=== PATIENT | male | born 1945 | race Caucasian/White ===

== ENCOUNTER 2018-07-29 01:05 | Outpatient (CLI) | payer MEDICARE, OTHER, SELFPAY ==
--- NOTE | 2018-07-29 09:00 | DI.US_ITS ---
SYMPTOM/DIAGNOSIS: SCROTAL MASS, N50.9 SCROTAL ULTRASOUND: Scrotal ultrasound was performed according to the usual protocol. The testes are homogeneous in echotexture with normal symmetrical vascular flow bilaterally. The epididymi are unremarkable in appearance. There is a right sided hydrocele, volume 83 cc's. 4 mm. right spermatocele or cyst noted. No hernia is seen. CONCLUSION: Right hydrocele. Otherwise unremarkable examination.
== END 2018-07-29 01:25 ==
PROVIDERS: PCP Nurse Practitioner Family; Visit Provider Family Medicine
DX: N50.9 Disorder of male genital organs, unspecified (principal); N43.3 Hydrocele, unspecified
CPT/HCPCS: 76870

== ENCOUNTER → 2018-08-05 10:40 | Outpatient (BNVA) | payer MEDICARE, OTHER, SELFPAY | PROVIDERS: PCP Nurse Practitioner Family; Visit Provider Urology | DX: N43.3 Hydrocele, unspecified (principal); I10 Essential (primary) hypertension | CPT/HCPCS: 99213 ==

== ENCOUNTER 2018-10-06 10:29 | Outpatient (CLI) | payer MEDICARE, OTHER, SELFPAY ==
--- NOTE | 2018-10-06 10:30 | DI.US_ITS ---
SYMPTOMS/DIAGNOSIS: LT SCROTAL SWELLING, RAPID INCREASE IN SIZE, N50.89 TESTICULAR ULTRASOUND: Comparison 07/29/18. The right testicle measures 4.2 x 3.2 x 2.0 cm. The testicle is homogeneous with normal blood flow. No evidence of torsion or mass is seen. The right epididymis is unremarkable. The left testicle measures 4.7 x 2.9 x 2.5 cm. It is homogeneous with normal blood flow. No intratesticular mass or torsion is present. There is a large hydrocele present with estimated volume of 150 cc's. The epididymis is unremarkable. IMPRESSION: Increase in size of large left hydrocele.
== END 2018-10-06 10:49 ==
PROVIDERS: PCP Nurse Practitioner Family; Visit Provider Nurse Practitioner Gerontology
DX: N50.89 Other specified disorders of the male genital organs (principal); N50.82 Scrotal pain; N43.2 Other hydrocele; I10 Essential (primary) hypertension
CPT/HCPCS: 99213; 76870

== ENCOUNTER → 2018-12-13 13:41 | Outpatient (BNVA) | payer MEDICARE, OTHER, SELFPAY | PROVIDERS: PCP Nurse Practitioner Family; Visit Provider Urology | DX: N43.3 Hydrocele, unspecified (principal); I10 Essential (primary) hypertension | CPT/HCPCS: 55000; 99213 ==

== ENCOUNTER 2018-12-30 18:17 | Emergency (ER) | payer MEDICARE, OTHER, SELFPAY ==
[2018-12-30] VITALS (47 sets, daily range): BP systolic 98–132; BP diastolic 53–85; PULSE 62–163; RESP 13–30; TEMP 36.8–37; O2SAT 90–96
[2018-12-30] MEDS: Normal Saline 1,000 ML 1000 ML IV (18:35)
[2018-12-30 18:44] LABS: Abs Immature Grans 0.01 k/cumm (0.0-0.09); Absolute Basophil Count 0.02 k/cumm (0.0-0.2); Absolute Eosinophil Count 0.13 k/cumm (0.0-0.7); Absolute Lymphocyte Count 1.71 k/cumm (1.2-3.4); Absolute Monocyte Count 0.74 k/cumm (0.11-0.7); Basophils % 0.3; HCT 42.1 % (40.0-50.0); HGB 13.9 g/dL (13.5-17.5); Immature Grans % 0.2; Lymphocytes % 25.9; Mean Corpuscular Hemoglobin 31.1 pg (27.0-33.0); Mean Corpuscular Volume 94.2 fL (80-95); Mean Platelet Volume 10.7 fL (8.0-11.0); Monocytes % 11.2; Neutrophils % 60.4; Platelet Count 166 x1000/uL (130-400); RBC 4.47 m/cumm (4.50-6.00); RBC Distribution Width 14.4 % (11.8-14.1); White Blood Cell Count 6.61 k/cumm (4.4-10.8)
[2018-12-30] MEDS: Metoprolol 5 MG/5 ML VIAL IVP (18:44)
--- NOTE | 2018-12-30 18:54 | W.ED.GENAD ---
Discharge Plan Disposition Patient Disposition: HOME Condition: Good Discharge Details Chief Complaint: Palpitatns Clinical Impression: Atrial fibrillation with RVR Primary Care Provider: Henri Gan ED Provider: Dave Lacey Home Meds and New Rx's Prescriptions: No Action atenolol 100 MG tablet 100 mg PO DAILY RF: 0 amlodipine 5 MG tablet 5 mg PO DAILY RF: 0 acetaminophen [Tylenol] 325 MG tablet 650 mg PO PRN RF: 0 naproxen 250 MG tablet 500 mg PO BID PRNRF: 0 levothyroxine [Synthroid] 50 MCG tablet 25 mcg PO DAILY RF: 0 cholecalciferol (vitamin D3) [Vitamin D3] 1,000 UNIT capsule 1 tab PO DAILY RF: 0 rabeprazole [Aciphex] 20 MG tablet,delayed release (DR/EC) 20 mg PO DAILY RF: 0 aspirin [Aspir-81] 81 MG tablet,delayed release (DR/EC) 81 mg PO DAILY RF: 0 metoprolol succinate 100 mg Tablet Extended Release 24 Hr 100 mg PO DAILY RF: 0 Eliquis 5 mg Tablet 5 mg PO BID RF: 0 Discharge Instructions Instructions: Atrial Fibrillation (ED) Additional Instructions: Please take your home metoprolol, Eliquis, and amlodipine as directed. Please follow-up immediately with your primary care provider. Please have a low threshold for return to the ED if you have any return of your symptoms. If you notice any worsening of your symptoms, or any new symptoms such as vomiting, diarrhea, fever, chills, shortness of breath, chest pain, numbness, weakness, or fainting , please return immediately to the emergency department for reevaluation. Please follow up with your primary care provider as soon as possible for reassessment and reevaluation. As always, it was a pleasure participating in your medical care today. Referrals: Henri Gan [Primary Care Provider] - Medical Decision Making This is a 73-year-old male with a past medical history of recently diagnosed atrial fibrillation, thyroid disease, who is currently on Eliquis, metoprolol and amlodipine. He presents today for fatigue for the last 3 days, followed by his recommendation of his PCP to come into the ER for further evaluation. Patient denies any concerning red flags of chest pain, shortness of breath, PE risk factors, tearing sensation in his chest or other abnormalities. Physical exam is benign, the patient demonstrates normal blood pressure, heart rate is in the 150s-160s, and EKG demonstrates atrial fibrillation with a rapid ventricular response. Minimal ST flattening, but no evidence of STEMI. From the onset the patient is very hesitant about staying overnight would like to go home. We initially started 5 but hematoma metoprolol, however he had no significant response to this. Heart rate did slow slightly, but rate remained over 100. We did add 15 mg of Cardizem and we will assess after this. If his rate can be controlled with this, he can be restarted on his beta-venkata and amlodipine for home use. Patient is very clear that he would like to go home. We will continue to monitor and reassess. 8:07 PM The patient was given a total of 20 of Cardizem, his blood pressures remained stable. Heart rate is now in the 80s-90s. He is feeling very well. The patient's laboratory workup is benign including his potassium, magnesium, and sodium. Troponin is normal. TSH is low, reflex free T4 slightly elevated. I did review his records from his PCP and they recently decreased his levothyroxine within the past 48 hours. I expect his free T4 to come down with time. If the patient's heart rate remained stable, we will not force the patient to stay overnight, however I have made my clear recommendations for admission. Patient will require restarting his metoprolol 100 mg daily, and continuing his amlodipine. 8:46 PM Patient's heart rate continues to remain stable. Repeat EKG shows no significant ST abnormalities, normal rate. Patient is were still requesting to be discharged home. I discussed the risks and benefits of admission versus discharge understood understands that patient will be given 25 mg of metoprolol, he will then continue his home medications in the morning. We discussed the importance of close follow-up with his primary care provider as well as red flags for which to return. I have extensively reviewed the treatment plan and discharge instructions with the patient. I have addressed all patient concerns at this time. The patient was made aware of what symptoms to monitor for that would warrant a return to the emergency department. Discussed the plan with the patient, they demonstrate verbal understanding and agreement with our assessment and plan at this time. EKG 18: 23 Rate 159, QTc 449, atrial fibrillation with a rapid ventricular response. Q waves present in lead III. Minimal flattening of T waves in V4 V5. No reciprocal ST elevations. No evidence of STEMI. EKG 20: 18 Rate 87, QTc 455, QRS 96, atrial fibrillation, no significant ST elevations or depressions, inverted T wave in lead III, Q waves in lead III. Q wave is present in prior EKG. COMPARISON: No relevant prior studies available. FINDINGS: Lungs: Unremarkable. No consolidation. Pleural space: Unremarkable. No pleural effusion. No pneumothorax. Heart/Mediastinum: Unremarkable. No cardiomegaly. Bones/joints: Unremarkable. IMPRESSION: No acute findings. Dictated and Authenticated by: Beryl De Guzman MD. HPI General Date/Time Provider Initiated Documentation: 12/30/18 18:23. HPI Narrative: 73-year-old male with a past medical history of recently diagnosed A. fib 2 days ago, recently started Eliquis, thyroid disease, who takes metoprolol 100 mg daily, and amlodipine 5 mg daily. He presents today for evaluations of fatigue after his primary care provider recommended that he come in for further evaluation. Patient states that he has noticed fatigue over the last 2-3 days, he has not taken his metoprolol over the last 2 days either, as he read on the pamphlet that if he stops taking it it could cause him to and he did not want to be on a medication like that permanently. The patient denies any symptoms of chest pain, palpitations, shortness of breath, fever, chills, headache, numbness, tingling, weakness, tearing sensation in the chest, tearing sensation in the abdomen, or other abnormalities. He is otherwise been taking his Eliquis and other medications as directed. He denies any other modifying factors. Denies PE risk factors such as recent long car rides, immobilization, recent surgery, prior history of DVT or PE, family history of PE or DVT, morbid obesity, exogenous estrogen and smoking, hemoptysis, history of cancer. Related Data Home Medications Medication Instructions Recorded Confirmed amlodipine 5 mg PO DAILY tab-cap 08/02/15 12/30/18 atenolol 100 mg PO DAILY tab-cap 08/02/15 10/06/18 cholecalciferol (vitamin D3) 1 tab PO DAILY 04/11/16 12/30/18 [Vitamin D3] levothyroxine [Synthroid] 25 mcg PO DAILY 04/11/16 12/30/18 aspirin [Aspir 81] 81 mg PO DAILY 08/31/16 12/30/18 rabeprazole [Aciphex] 20 mg PO DAILY 12/29/16 12/30/18 acetaminophen [Tylenol] 650 mg PO PRN tab-cap 01/31/18 12/30/18 naproxen 500 mg PO BID PRN tab-cap 01/31/18 12/30/18 apixaban [Eliquis] 5 mg PO BID 12/30/18 12/30/18 metoprolol succinate 100 mg PO DAILY 12/30/18 12/30/18 Allergies Allergy/AdvReac Type Severity Reaction Status Date / Time oxycodone Allergy Itching Unverified 12/30/18 18:53 propoxyphene Allergy Itching Unverified 12/30/18 18:53 [From [facility]] General Stated Complaint: Palpitatns PEDRO: 2 Review of Systems Review of Systems All systems reviewed & are unremarkable except as noted in HPI and below PFSH Medical History GERD (gastroesophageal reflux disease) Hyperlipidemia Hypertension Spinal arthritis Vitamin D deficiency Surgical History Arthroplasty of knee Release for de Quervain's tenosynovitis of hand Rotator Cuff Repair Social History Smoking/Tobacco Use Status: Never Drug use: Never Substance use type: does not use Do you feel safe at home: Yes Do you feel safe in your relationship?: Yes Exam Narrative Exam Narrative: 1.Const: Well-nourished, Well-developed, appearing stated age 2.Eyes: PERRL, no conjunctival injection, and symmetrical lids. 3.ENT: Atraumatic external nose and ears. Moist MM. Neck: Symmetric, trachea midline, No thyromegaly. 4.CVS: +S1/S2, No murmurs or gallops. Peripheral pulses 2+ and equal in all extremities. Brisk capillary refill in all extremities. 5.RESP: Unlabored respiratory effort. Clear to auscultation bilaterally. No wheezes rales or rhonchi 6.GI: Soft, Nontender/Nondistended, No hepatosplenomegaly. No guarding or rebound. 7.MSK: Normocephalic/Atraumatic, Extremities w/o deformity or ttp No cyanosis or clubbing, Normal movement of all extremities 8.Skin: Warm, Dry. No rashes or lesions. 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 Sensation grossly intact, no focal neurologic deficits. 10.Psych: (AAO) x3. Appropriate mood and affect Course Vital Signs Temperature 37.0 C 12/30/18 18:34 Pulse 163 H 12/30/18 18:34 Respiratory Rate 22 12/30/18 18:34 Pulse Oximetry 96 12/30/18 18:34 Temperature 37.0 C 12/30/18 18:34 Temperature Source Skin 12/30/18 18:34 Pulse 147 H 12/30/18 18:44 Respiratory Rate 22 12/30/18 18:34 Respiratory Effort 12/30/18 18:47 Blood Pressure 118/70 12/30/18 18:44 Pulse Oximetry 96 12/30/18 18:34 Oxygen Delivery Method Room Air 12/30/18 18:34 Oxygen Flow Rate 0 12/30/18 18:34 Pain Level 0 12/30/18 18:34 Lab/Test Results Lab/Test Results: Laboratory Tests Range/Units 12/30/18 18:30 WBC (4.4-10.8) k/cumm 6.61 RBC (4.50-6.00) m/cumm 4.47 L Hgb (13.5-17.5) g/dL 13.9 Hct (40.0-50.0) % 42.1 MCV (80-95) fL 94.2 MCH (27.0-33.0) pg 31.1 MCHC (32.0-36.0) g/dL 33.0 RDW (11.8-14.1) % 14.4 H Plt Count (130-400) x1000/uL 166 MPV (8.0-11.0) fL 10.7 Immature Gran % 0.2 Neutrophils % 60.4 Lymphocytes % 25.9 Monocytes % 11.2 Eosinophils % 2.0 Basophils % 0.3 Absolute Neutrophils (1.2-6.7) k/cumm 4.00 Absolute Lymphocytes (1.2-3.4) k/cumm 1.71 Absolute Monocytes (0.11-0.7) k/cumm 0.74 H Absolute Eosinophils (0.0-0.7) k/cumm 0.13 Absolute Basophils (0.0-0.2) k/cumm 0.02
[2018-12-30 19:02] LABS: ALT 55 U/L (12-78); AST 20 U/L (15-37); Albumin 3.8 g/dL (3.4-5.0); Alkaline Phosphatase 105 U/L (46-116); Anion Gap 9.2 mmol/L (3-11); BUN 25 mg/dL (7-18); Bilirubin, Total 0.7 mg/dL (0.2-1.0); CO2 26.8 mmol/L (21.0-32.0); CREATININE 1.18 mg/dL (0.70-1.30); Chloride 105 mmol/L (98-107); Glucose 125 mg/dL (70-100); Potassium 3.9 mmol/L (3.5-5.1); Sodium 141 mmol/L (136-145); TSH (W/Ref FT4) 0.01 uIU/mL (0.358-3.74); Total Protein 7.3 g/dL (6.4-8.2)
--- NOTE | 2018-12-30 19:02 | DI.RAD_ITS ---
SYMPTOM/DIAGNOSIS: A FIB WITH RVR PA AND LATERAL CHEST: The heart is not enlarged. The lungs appear grossly clear. Slight blunting of the costophrenic angles is noted bilaterally which is a nonspecific finding. This may represent scarring, the possibility of tiny pleural effusions not excluded. Lungs are clear. CONCLUSION: Mild bilateral nonspecific pleural blunting. No evidence of acute process.
[2018-12-30 19:04] LABS: Troponin I < 0.02 ng/mL (0.00-0.06)
[2018-12-30] MEDS: dilTIAZem 25 MG/5 ML VIAL 15 MG IVP ×2 (19:18→19:48)
[2018-12-30 19:20] LABS: FREE T4 1.73 ng/dL (0.76-1.46); INR 1.1 (0.9-1.1); PTT Activated 26.5 sec (21.0-31.4); Prothrombin Time 10.8 sec (9.3-11.0)
--- NOTE | 2018-12-30 19:27 | DI.VRAD_ITS ---
EXAM: XR Chest, 2 Views EXAM DATE/TIME: 12/30/2018 6:39 PM CLINICAL HISTORY: 73 years old, male; Signs and symptoms; Other: Afib with rvr TECHNIQUE: Imaging protocol: XR of the chest, 2 views. COMPARISON: No relevant prior studies available. FINDINGS: Lungs: Unremarkable. No consolidation. Pleural space: Unremarkable. No pleural effusion. No pneumothorax. Heart/Mediastinum: Unremarkable. No cardiomegaly. Bones/joints: Unremarkable. IMPRESSION: No acute findings. Dictated and Authenticated by: Beryl De Guzman MD. Ordering:GALILEO Acosta MD
[2018-12-30] MEDS: Metoprolol 25 MG TAB PO (20:32)
== END 2018-12-30 21:00 | disposition home or self-care (01) ==
PROVIDERS: Emergency Provider Student in an Organized Health Care Education/Training Program; PCP Family Medicine
DX: I48.0 Paroxysmal atrial fibrillation (principal); I10 Essential (primary) hypertension; Z79.01 Long term (current) use of anticoagulants
CPT/HCPCS: 36415; 80053; 93005; 96361; 96365; 96375; 99285; 71046; 83735; 84439; 84443; 84484; 85025; 85610; 85730; 93010

== ENCOUNTER → 2019-01-09 09:10 | Outpatient (BNVA) | payer MEDICARE, OTHER, SELFPAY | PROVIDERS: PCP Family Medicine; Visit Provider Urology | DX: N43.3 Hydrocele, unspecified (principal); I10 Essential (primary) hypertension | CPT/HCPCS: 99213 ==

== ENCOUNTER → 2019-04-14 15:14 | Outpatient (BNVA) | payer MEDICARE, OTHER, SELFPAY | PROVIDERS: PCP Family Medicine; Visit Provider Urology | DX: N43.3 Hydrocele, unspecified (principal); I48.91 Unspecified atrial fibrillation; Z79.01 Long term (current) use of anticoagulants; I10 Essential (primary) hypertension | CPT/HCPCS: 55000; 99212 ==

== ENCOUNTER 2019-04-23 18:08 | Emergency (ER) | payer MEDICARE, OTHER, SELFPAY ==
[2019-04-23] VITALS (94 sets, daily range): BP systolic 114–143; BP diastolic 63–95; PULSE 58–96; RESP 11–46; TEMP 36.3–36.6; O2SAT 81–97
--- NOTE | 2019-04-23 19:15 | W.ED.GENAD ---
Discharge Plan Disposition Patient Disposition: HOME Condition: Fair Discharge Details Chief Complaint: Urinary Clinical Impression: Hydrocele Primary Care Provider: Althea Hamilton ED Provider: Carline Lamas Home Meds and New Rx's Prescriptions: Continued atenolol 100 MG tablet 100 mg PO DAILY RF: 0 amlodipine 5 MG tablet 5 mg PO DAILY RF: 0 acetaminophen [Tylenol] 325 MG tablet 650 mg PO PRN RF: 0 levothyroxine [Synthroid] 50 MCG tablet 25 mcg PO DAILY RF: 0 cholecalciferol (vitamin D3) [Vitamin D3] 1,000 UNIT capsule 1 tab PO DAILY RF: 0 rabeprazole [Aciphex] 20 MG tablet,delayed release (DR/EC) 20 mg PO DAILY RF: 0 metoprolol succinate 100 mg Tablet Extended Release 24 Hr 25 mg PO DAILY RF: 0 Eliquis 5 mg Tablet 5 mg PO BID RF: 0 Discharge Instructions Instructions: Oxycodone, Rapid Release (By mouth), Hydrocele (ED) Additional Instructions: Your labs did not show signs of infection. You do not have an abscess or signs of infection on your CT scan. It does show the recurrence of your hydrocele. Please try to elevate scrotum scrotum as much as possible. You may apply cool compress to this. 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 Please also contact Dr. Petersen tomorrow morning to schedule appointment as soon as possible for reevaluation of your recurrence of hydrocele If you develop fevers/chills, increased pain, discharge, increased swelling or other new/worsening symptoms please seek care urgently once again. You may use Oxycodone 5mg tablet one tab every 6 hours as needed for pain. Use only as directed, keep in a safe place, away from children. Referrals: Mukund Petersen MD [ [facility] STAFF PHYSICIAN] - Althea Hamilton [Primary Care Provider] - Discharge Data Discharge Date/Time-TO BE ENTERED AT DEPARTURE: 04/24/19 00:40 Medical Decision Making Patient is 73-year-old male presents today with chief complaint of left-sided scrotal pain. Patient has a history of a hydrocele on 04/14/2019 had this drained by Dr. Petersen without complication. At that time, Dr. Petersen reported that he removed 100 cc of yellow-tinged fluid. Patient reports this is the second time he has had this drained. States that since the drainage, he has noted low level of discomfort that has steadily been increasing with increasing swelling once again. It is not yet back to the original size. However, at noon today he reports that it felt like somebody kicked me in the groin. States that the pain had been steadily increasing and that now he is unable to tolerate at home. Denies any fevers or chills. States the pain can radiate up into the left lower quadrant. Denies any hematuria, difficulty with urination, hesitancy, dysuria. No change in bowel habits. Patient also has a history of atrial fibrillation and is scheduled to have a conversion tomorrow. He is currently anticoagulated. Has rigth sided inguinal hernia without acute pain or changge. On exam, the patient appears nontoxic. He does have notable swelling to the left side of the scrotum. It is slightly red but does not feel warm to the touch. I do not appreciate any drainage. Does not look particularly infected. Will consult with Dr. Petersen. Given the lenght of time that pain has been increasing and that patient has fairly minimal pain with plapation at this time, torsion is very unlikely. Feel this is most concerning for possible infection or reaccumulation of hydrocele. Unable to reach Dr. 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 Concerned for possible abscess, will obtain CT scan. Dr. Lacey evaluated the patient as well. He agrees that infection is unlikely, evaluation is more consistent with reformation of the hydrocele. Labs obtained, patient has no leukocytosis. BUN elevated at 27, creatinine 1.47, patient is receiving IV hydration. UA concerning for moderate amount of blood, this is not atypical for the patient. Nitrite negative, leukocyte esterase negative. Plan to move forward with CT for evaluaton of possible abscess. CT reviewed by radiologist: IMPRESSION: 1. Large left and small right hydroceles. 2. Small right varicocele. 3. No evidence of abscess or hematoma. 4. No evidence of residual or recurrent inguinal hernia. 5. Small amount of ascites in the pelvis. 6. Small fatty umbilical hernia. 7. Diverticulosis without evidence of diverticulitis. 8. Large prostate. Discussed these findings wtih the patient. He expresses his want for definitive treatment with surgical excision. At this point, I do not see any emergent need for intervention. We discussed scrotal elevation. He is requesting pain medication. Oxycodone has worked well for him historically, it is listed as an allergy but chikacindyn states that he typically does not tolerate percocet but does well with oxycodone. Advised icing the area. Advised close f/u with Dr. Petersen. He has an appointment for cardioversion tomorrow but advised he f/u with Dr. Petersen within the next 3 days, he will call tomorrow to schedule appointment. Do not see evidence of infection at this point, will hold off on abx. Encouraged hydration. He was given strict return precautions. All questions and concerns were addressed, he isin agreement with this plan. Patient discharged home with oxycodone to use tonight. He was given dosing instructions, will keep in a safe place. HPI General Mode of arrival: ambulatory. Date/Time Provider Initiated Documentation: 04/23/19 19:13. Limitations to Documentation: no limitations. Information obtained by: patient, family and RN notes reviewed. History of Present Illness 73 year old M presents to the emergency department with the chief complaint of left sided scrotal swelling, described as severe, with intensity rated at 8. Quality is described as aching, and is localized to the genitals. Patient reports no radiation. Patient started experiencing this week(s) (Had drained 10 days ago, progressively increasing since that time) and it has been constant. No relieving factors improve symptom(s), Movement worsens symptoms . Patient notes no other symptoms.; denies chest pain, cough, diaphoresis, fever/chills, headaches, loss of appetite, nausea/vomiting, rash, shortness of breath and weakness. Patient did receive the following treatments prior to arrival, none Related Data Home Medications Medication Instructions Recorded Confirmed amlodipine 5 mg PO DAILY tab-cap 08/02/15 04/23/19 atenolol 100 mg PO DAILY tab-cap 08/02/15 04/23/19 cholecalciferol (vitamin D3) 1 tab PO DAILY 04/11/16 04/23/19 [Vitamin D3] levothyroxine [Synthroid] 25 mcg PO DAILY 04/11/16 04/23/19 rabeprazole [Aciphex] 20 mg PO DAILY 12/29/16 04/23/19 acetaminophen [Tylenol] 650 mg PO PRN tab-cap 01/31/18 04/23/19 Eliquis 5 mg PO BID 12/30/18 04/23/19 metoprolol succinate 25 mg PO DAILY 12/30/18 04/23/19 Allergies Allergy/AdvReac Type Severity Reaction Status Date / Time oxycodone Allergy Itching Unverified 04/23/19 18:29 propoxyphene Allergy Itching Unverified 04/23/19 18:29 [facility] General Stated Complaint: Urinary PEDRO: 3 Review of Systems Constitutional Reports as per HPI, Denies chills, Denies fatigue, Denies fever(s) and Denies headache(s) ENT Denies headache(s) Cardiovascular Reports as per HPI, Denies chest pain and Denies dyspnea Respiratory Reports as per HPI, Denies cough and Denies dyspnea Gastrointestinal Reports as per HPI Genitourinary Denies hematuria, Denies difficulty urinating, Denies genital lesions, Reports genital pain, Denies dysuria, Denies flank pain, Denies penile discharge, Reports scrotal swelling, Denies testicular mass, Reports testicular pain, Denies urinary frequency, Denies urinary hesitancy, Denies urinary incontinence and Denies urinary urgency Musculoskeletal Reports as per HPI and Denies back pain Integumentary/Breasts Reports as per HPI, Denies erythema, Denies rash, Denies sores, Denies unusual bruising and Denies wounds Neurologic Reports as per HPI and Denies headache(s) Endocrine Denies fatigue [facility] Medical History A-fib (Chronic) GERD (gastroesophageal reflux disease) Hydrocele in adult (Acute) Hyperlipidemia Hypertension Spinal arthritis Vitamin D deficiency Surgical History Arthroplasty of knee Release for de Quervain's tenosynovitis of hand Rotator Cuff Repair Social History Smoking/Tobacco Use Status: Never Drug use: Never Substance use type: does not use Do you feel safe at home: Yes Do you feel safe in your relationship?: Yes Exam Const General: cooperative, healthy appearing, comfortable, no acute distress and well developed Nutritional Appearance: average body habitus and well nourished Orientation: alert and awake [facility] Head: normal to inspection Mouth: moist mucous membranes Resp Effort & Inspection: normal respiratory effort, able to speak in complete sentences and no respiratory distress Auscultation: clear to auscultation bilaterally, no rales, no rhonchi and no wheezes Cardio Rate: regular rate Rhythm: abnormal rhythm irregularly irregular Heart Sounds: S1 normal and S2 normal GI Inspection: no edema, non-distended, no large pannus, visible herniation (right inguinal, soft, reducible with no pain on palpation), no visible pulsation and No visible peristalsis Palpation: soft, no hepatosplenomegaly, not firm, no guarding, hernia, not rigid and nontender Percussion: normal to percussion Auscultation: normal bowel sounds Penis: normal penis, no ecchymosis, not edematous, not erythematous, no masses, no nodules, no swelling and no ulcerations Meatus: meatus normal and no meatla discharge Scrotum: cremasteric reflex absent on the left, no ecchymosis, not erythematous, hydrocele on the left, no masses and no ulcerations Testes: normal Back/Spine/Pelvis Back: no CVA tenderness Skin General skin exam: no rashes or lesions noted and no erythema Trauma: no lacerations or abrasions Neuro General: alert and awake Cognition: normal cognition Speech: speech normal Gait: normal gait Psych Appearance: grossly normal and well kempt Mental Status: mental status grossly normal Speech and Movement: speech and movement normal Course Vital Signs Temperature 36.3 C L 04/23/19 18:24 Pulse 58 L 04/23/19 18:24 Respiratory Rate 16 04/23/19 18:24 Blood Pressure 125/95 H 04/23/19 18:24 Pulse Oximetry 92 L 04/23/19 18:24 Temperature 36.3 C L 04/23/19 18:24 Pulse 58 L 04/23/19 18:24 Respiratory Rate 16 04/23/19 18:24 Respiratory Effort Non-Labored 04/23/19 18:28 Blood Pressure 125/95 H 04/23/19 18:24 Pulse Oximetry 92 L 04/23/19 18:24 Pain Level 8 04/23/19 18:24
--- NOTE | 2019-04-23 19:26 | W.ED.GENAD ---
Discharge Plan Discharge Details Chief Complaint: Urinary Primary Care Provider: Althea Hamilton ED Provider: Carline Lamas Home Meds and New Rx's Prescriptions: No Action atenolol 100 MG tablet 100 mg PO DAILY RF: 0 amlodipine 5 MG tablet 5 mg PO DAILY RF: 0 acetaminophen [Tylenol] 325 MG tablet 650 mg PO PRN RF: 0 levothyroxine [Synthroid] 50 MCG tablet 25 mcg PO DAILY RF: 0 cholecalciferol (vitamin D3) [Vitamin D3] 1,000 UNIT capsule 1 tab PO DAILY RF: 0 rabeprazole [Aciphex] 20 MG tablet,delayed release (DR/EC) 20 mg PO DAILY RF: 0 metoprolol succinate 100 mg Tablet Extended Release 24 Hr 25 mg PO DAILY RF: 0 Eliquis 5 mg Tablet 5 mg PO BID RF: 0 Medical Decision Making ECG Data Attestation: I personally reviewed and interpreted this ECG (s) as follows: (Atrial fibrillation approximately 100 bpm with occasional PVCs no ST elevation no QRS widening nonspecific T wave flattening) HPI General Date/Time Provider Initiated Documentation: 04/23/19 19:13. Related Data Home Medications Medication Instructions Recorded Confirmed amlodipine 5 mg PO DAILY tab-cap 08/02/15 04/23/19 atenolol 100 mg PO DAILY tab-cap 08/02/15 04/23/19 cholecalciferol (vitamin D3) 1 tab PO DAILY 04/11/16 04/23/19 [Vitamin D3] levothyroxine [Synthroid] 25 mcg PO DAILY 04/11/16 04/23/19 rabeprazole [Aciphex] 20 mg PO DAILY 12/29/16 04/23/19 acetaminophen [Tylenol] 650 mg PO PRN tab-cap 01/31/18 04/23/19 apixaban [Eliquis] 5 mg PO BID 12/30/18 04/23/19 metoprolol succinate 25 mg PO DAILY 12/30/18 04/23/19 Allergies Allergy/AdvReac Type Severity Reaction Status Date / Time oxycodone Allergy Itching Unverified 04/23/19 18:29 propoxyphene Allergy Itching Unverified 04/23/19 18:29 [From [place]] General Stated Complaint: Urinary PEDRO: 3 PFSH Medical History (Updated 04/23/19 @ 18:30 by Alexa Barnhart) A-fib (Chronic) GERD (gastroesophageal reflux disease) Hydrocele in adult (Acute) Hyperlipidemia Hypertension Spinal arthritis Vitamin D deficiency Surgical History (Updated 07/20/18 @ 14:35 by [employer] [facility]) Arthroplasty of knee Release for de Quervain's tenosynovitis of hand Rotator Cuff Repair Social History Smoking/Tobacco Use Status: Never Drug use: Never Substance use type: does not use Do you feel safe at home: Yes Do you feel safe in your relationship?: Yes Course Vital Signs Temperature 36.3 C L 04/23/19 18:24 Pulse 58 L 04/23/19 18:24 Respiratory Rate 16 04/23/19 18:24 Blood Pressure 125/95 H 04/23/19 18:24 Pulse Oximetry 92 L 04/23/19 18:24 Temperature 36.3 C L 04/23/19 18:24 Pulse 58 L 04/23/19 18:24 Respiratory Rate 21 04/23/19 19:16 Respiratory Effort Non-Labored 04/23/19 18:28 Blood Pressure 125/95 H 04/23/19 18:24 Pulse Oximetry 94 L 04/23/19 19:16 Pain Level 8 04/23/19 18:24
[2019-04-23 20:57] LABS: Bilirubin Small (Negative); Blood Moderate (Negative); Clarity Clear (Clear); Glucose Negative (Negative); Ketones Trace mg/dL (Negative); Leukocyte Esterase Negative (Negative); Nitrite Negative (Negative); Specific Gravity >= 1.030 (1.005-1.025); Urobilinogen 0.2 EU/dL (Up TO 0.2)
[2019-04-23 21:11] LABS: Bacteria Few HPF (Negative); C & S Indicated? No; Casts Negative LPF (Negative); Crystals Negative HPF (Negative); Epithelial Cells Rare HPF (Negative); Mucus Negative (Negative); Other Cells Negative (Negative)
[2019-04-23 22:01] LABS: Abs Immature Grans 0.02 k/cumm (0.0-0.09); Absolute Basophil Count 0.02 k/cumm (0.0-0.2); Absolute Eosinophil Count 0.09 k/cumm (0.0-0.7); Absolute Lymphocyte Count 0.97 k/cumm (1.2-3.4); Absolute Monocyte Count 1.22 k/cumm (0.11-0.7); Absolute Neutrophil Count 6.59 k/cumm (1.2-6.7); Basophils % 0.2; HGB 14.2 g/dL (13.5-17.5); Immature Grans % 0.2; Lymphocytes % 10.9; Mean Corp. HGB Concentration 33.8 g/dL (32.0-36.0); Mean Corpuscular Hemoglobin 30.9 pg (27.0-33.0); Mean Corpuscular Volume 91.3 fL (80-95); Mean Platelet Volume 11.9 fL (8.0-11.0); Monocytes % 13.7; Platelet Count 173 x1000/uL (130-400); RBC Distribution Width 16.8 % (11.8-14.1); White Blood Cell Count 8.91 k/cumm (4.4-10.8)
[2019-04-23 22:13] LABS: ALT 55 U/L (12-78); AST 36 U/L (15-37); Albumin 3.6 g/dL (3.4-5.0); Alkaline Phosphatase 111 U/L (46-116); Anion Gap 13.2 mmol/L (3-11); BUN 27 mg/dL (7-18); Bilirubin, Total 0.7 mg/dL (0.2-1.0); CO2 21.8 mmol/L (21.0-32.0); CREATININE 1.47 mg/dL (0.70-1.30); Calcium 9.4 mg/dL (8.5-10.1); Chloride 106 mmol/L (98-107); Glucose 116 mg/dL (70-100); Potassium 4.2 mmol/L (3.5-5.1); Sodium 141 mmol/L (136-145); Total Protein 6.9 g/dL (6.4-8.2)
[2019-04-23] MEDS: Omnipaque 350 MG/ML 100 ML BTL IJ (22:43)
--- NOTE | 2019-04-23 22:45 | DI.CT_ITS ---
SYMPTOMS/DIAGNOSIS: LEFT SCROTAL PAIN AND SWELLING AFTER DRAINAGE CT SCAN OF THE PELVIS: Routine examination was performed. There is a small fat-containing umbilical hernia. There is diverticulosis of the colon, but no evidence of acute diverticulitis. There is a small amount of pelvic ascites. The prostate gland appears mildly enlarged. There does not appear to be a residual left inguinal hernia. There is a fat and fluid-containing right inguinal hernia. There is a large left and a small right hydrocele. The urinary bladder is intact. Degenerative changes are seen in the spine. No evidence of an abscess is present. IMPRESSION: 1. Large left and small right hydrocele. 2. No evidence of an abscess. 3. Right fat and fluid-containing inguinal hernia. 4. Small amount of pelvic ascites.
[2019-04-23] MEDS: Normal Saline 1,000 ML 1000 ML IV (23:43)
--- NOTE | 2019-04-23 23:50 | DI.VRAD_ITS ---
EXAM: CT Pelvis With Contrast EXAM DATE/TIME: 04/23/2019 8:41 PM CLINICAL HISTORY: 73 years old, male; Other: Left scrotal pain; Prior surgery; Surgery date: 6+ months; Surgery type: Hernia repair; Patient HX: Pain in left testicle/ scrotal swelling after drainage ? abscess TECHNIQUE: Imaging protocol: Axial computed tomography images of the pelvis with intravenous contrast. Coronal and sagittal reformatted images were created and reviewed. Radiation optimization: All CT scans at this facility use at least one of these dose optimization techniques: automated exposure control; mA and/or kV adjustment per patient size (includes targeted exams where dose is matched to clinical indication); or iterative reconstruction. Contrast material: OMNIPAQUE 350; Contrast volume: 100 ml; Contrast route: IV; COMPARISON: CT ABD PELVIS WITH CONTRAST 09/03/2016 4:44 PM FINDINGS: Stomach and bowel: Mild diverticulosis involving the distal colon without evidence of acute diverticulitis. No evidence of residual/recurrent hernia. Appendix: The appendix is not identified. No secondary signs of appendicitis. Bladder: Urinary bladder is unremarkable. Reproductive: Large prostate measuring 5.2 cm transverse. Prominent vessels in the right hemiscrotum measuring up to 7 mm in diameter, suggesting varicocele, with a small associated hydrocele. There is a moderate to large left-sided hydrocele present. These demonstrate fairly simple fluid density of about 10 Hounsfield units with no associated scrotal thickening or abnormal enhancement to suggest scrotal abscess. Intraperitoneal space: Small amount of ascites in the pelvis. Vasculature: The visualized distal abdominal aorta constraints mild tortuosity and moderate atherosclerotic vascular calcification without aneurysm or dissection. Lymph nodes: Unremarkable. No enlarged lymph nodes. Bones/joints: Unremarkable. No acute fracture. No dislocation. Soft tissues: Small fatty umbilical hernia measuring 15 mm transverse. No evidence of associated bowel herniation or bowel obstruction. No evidence of hematoma or abscess. IMPRESSION: 1. Large left and small right hydroceles. 2. Small right varicocele. 3. No evidence of abscess or hematoma. 4. No evidence of residual or recurrent inguinal hernia. 5. Small amount of ascites in the pelvis. 6. Small fatty umbilical hernia. 7. Diverticulosis without evidence of diverticulitis. 8. Large prostate. Dictated and Authenticated by: Henri Mendoza MD. Ordering:TESFAYE Crowley MD
== END 2019-04-24 00:40 | disposition home or self-care (01) ==
PROVIDERS: Emergency Provider Physician Assistant; PCP Family Medicine
DX: N43.3 Hydrocele, unspecified (principal); K42.9 Umbilical hernia without obstruction or gangrene; K57.30 Diverticulosis of large intestine without perforation or abscess without bleeding
CPT/HCPCS: 36415; 80053; 96360; 99285; 72193; 81003; 81015; 85025; 99284; J3490

== ENCOUNTER → 2019-05-26 13:43 | Outpatient (BNVA) | payer MEDICARE, OTHER, SELFPAY | PROVIDERS: PCP Family Medicine; Visit Provider Urology | DX: N20.1 Calculus of ureter (principal); Z87.440 Personal history of urinary (tract) infections; R35.0 Frequency of micturition | CPT/HCPCS: 81003; 99213 ==

== ENCOUNTER 2019-05-26 15:18 | Outpatient (CLI) | payer MEDICARE, OTHER, SELFPAY ==
--- NOTE | 2019-05-26 14:25 | DI.RAD_ITS ---
SYMPTOM/DIAGNOSIS: MONITOR STONE N20.1 KUB: There is an ovoid density projected over the left sacrum, adjacent to the sacroiliac joint which may represent known ureteral stone. Vascular calcifications are seen in the abdomen. No other definite urinary tract calculi are appreciated. Degenerative changes are seen in the spine. There is a mild left convex scoliotic curvature of the lumbar spine.
== END 2019-05-26 15:38 ==
PROVIDERS: PCP Family Medicine; Visit Provider Urology
DX: N20.0 Calculus of kidney (principal); Z87.440 Personal history of urinary (tract) infections; R35.0 Frequency of micturition
CPT/HCPCS: 81003; 99213; 74018

== ENCOUNTER → 2019-06-07 15:16 | Outpatient (BNVA) | payer MEDICARE, OTHER, SELFPAY | PROVIDERS: PCP Family Medicine; Visit Provider Nurse Practitioner Gerontology | DX: R31.9 Hematuria, unspecified (principal); N43.3 Hydrocele, unspecified; Z87.442 Personal history of urinary calculi | CPT/HCPCS: 81003; 99213 ==

== ENCOUNTER 2019-06-13 00:24 | Outpatient (CLI) | payer MEDICARE, OTHER, SELFPAY ==
--- NOTE | 2019-06-13 08:59 | DI.CT_ITS ---
SYMPTOM/DIAGNOSIS: PAINLESS GROSS HEMATURIA, LT RENAL STONE R31.9. N20.[address]: 06/13 CT examination of the abdomen and pelvis was performed without contrast material. The examination was planned as a CT Urogram protocol scan but venous access was not obtained. There is marked abdominal ascites and there are bilateral hydroceles secondary to communication with the peroneal space. The visualized portions of the liver and spleen are grossly unremarkable. Pancreas is intact as visualized. Gallbladder appears to contain sludge. No biliary dilatation is seen. Abdominal aorta is of normal diameter. Adrenals appear normal bilaterally by noncontrast criteria. There is 16 mm in diameter hyperattenuating left renal mass unchanged in appearance in comparison with the previous CT of 12/08/16, this may represent hemorrhagic or proteinaceous cyst. No urinary tract calcification seen. No hydronephrosis. Urinary bladder has a thickened wall. Prostate is enlarged. No gross abdominal or pelvic adenopathy. No gross evidence of bowel obstruction. CONCLUSION: Noncontrast scan only due to lack of venous access. Stable rounded high attenuation lesion left renal cortex. Marked abdominal ascites. No other significant findings.
[2019-06-13 09:37] LABS: CREATININE 1.43 mg/dL (0.70-1.30); Estimated GFR 48.08 (mL/min/1.73m2)
== END 2019-06-13 00:44 ==
PROVIDERS: PCP Family Medicine; Visit Provider Nurse Practitioner Gerontology
DX: R31.0 Gross hematuria (principal); N20.1 Calculus of ureter; R18.8 Other ascites; N43.3 Hydrocele, unspecified; N40.0 Benign prostatic hyperplasia without lower urinary tract symptoms
CPT/HCPCS: 74176; 82565

== ENCOUNTER → 2019-06-26 15:09 | Outpatient (BNVA) | payer MEDICARE, BC, SELFPAY | PROVIDERS: PCP Family Medicine; Visit Provider Nurse Practitioner Gerontology | DX: R35.0 Frequency of micturition (principal); N20.1 Calculus of ureter; Z79.01 Long term (current) use of anticoagulants | CPT/HCPCS: 51798; 81003; 99213 ==

== ENCOUNTER → 2019-08-11 11:01 | Outpatient (BNVA) | payer MEDICARE, OTHER, SELFPAY | PROVIDERS: PCP Family Medicine; Referring Provider Family Medicine; Visit Provider Urology | DX: N43.3 Hydrocele, unspecified (principal) | CPT/HCPCS: 55000; 99212; 99213 ==

== ENCOUNTER → 2019-08-17 14:56 | Outpatient (BNVA) | payer MEDICARE, OTHER, SELFPAY | PROVIDERS: PCP Family Medicine; Referring Provider Family Medicine; Visit Provider Nurse Practitioner Gerontology | DX: N20.1 Calculus of ureter (principal) | CPT/HCPCS: 81003; 99213 ==

== ENCOUNTER 2019-10-16 08:51 | Day surgery (SDC) | payer MEDICARE, OTHER, SELFPAY | END 2019-10-16 09:11 | PROVIDERS: PCP Family Medicine; Visit Provider Urology | DX: R69 Illness, unspecified (principal); Y66 Nonadministration of surgical and medical care ==

== ENCOUNTER 2019-10-26 07:15 | Day surgery (SDC) | payer MEDICARE, OTHER, SELFPAY ==
[2019-10-26 07:24] VITALS: BP 132/75; PULSE 58; RESP 16; TEMP 36.1; O2SAT 97
[2019-10-26] MEDS: Lactated Ringers 1,000 ML 80 ML IV (07:59)
--- NOTE | 2019-10-26 09:09 | W.PM.HP.N ---
Date of service: 10/26/19 Time of Service: 09:09 Assessment and Plan Assessment and plan (1) Left ureteral stone: Status: Acute Assessment and plan: He has a left distal ureteral stone that is symptomatic intermittently. We will move ahead with ureteroscopic stone manipulation. I explained that if there is too much edema around the stone, we may need to place a stent and do a staged procedure/return to OR. He asks that we aspirate his hydrocele while he is anesthetized. He has had the aspiration in the office previously. (2) Hydrocele: Status: Acute Qualifiers: Hydrocele type: unspecified Qualified Code(s): N43.3 - Hydrocele, unspecified History of Present Illness History of Present Illness Chief Complaint: Left ureteral stone Narrative: (1) Left ureteral stone: Urine was positive for a large amount of blood. Sample was even dark with a question of gross hematuria. With the intermittent left flank discomfort he did have a CTU and was scheduled for a surgical procedure for cystoscopy with retrograde pyelogram but however as mentioned in the HPI was unable to proceed with the procedure due to cardiac concerns. He reports that since his cardiac concerns he has seen his cardiology Dr. miller out of [place]. Patient reports he is prepared to proceed with the operating room procedure. We will request clearance from his cardiology provider and once complete review his case again and write preop orders. At the same time he will need to orders so we can hold his Eliquis prior to the procedure. Soon is all the information is gathered we will proceed in a timely manner. We will plan on seeing him as needed and as scheduled. Dictation was done by Dragon voice recognition. Errors may be present within the note. Orders: Urinalysis Dip Only Today HPI Luis is here to follow-up on his left flank pain and hematuria. He reports that he will have dark urine and sometimes pink-tinged. He denies having clots, dysuria, suprapubic discomfort, or hesitation. He does note that he will have some frequency at times. He was previously scheduled to have a cystoscopy with retrograde pyelogram to further investigate this left flank discomfort that was thought to be a kidney stone in the ureter. However, he had a new onset of chest pain related to A. fib and needed to see cardiology to have clearance before the procedure. He reports that he went saw Dr. sands in [place] for this matter. Review of Systems Const: Denies chills, fatigue, fever(s) or weight loss Card: Denies chest pain GI: Denies abdominal pain (Diverticulosis associated ), constipation or diarrhea : Reports hematuria (resolved?), flank pain, urinary frequency and urinary urgency; Denies dysuria, nocturia, urinary hesitancy or urinary incontinence Endo: Denies fatigue Exam Const Orientation: alert, awake and oriented x3 Eyes Sclera: sclerae normal Resp Effort & Inspection: normal respiratory effort GI Inspection: normal to inspection and non-distended General: No CVA tenderness Extrem General: full ROM Intake Visit Reasons: 6-12 wk UA Allergies Allergy/AdvReac Type Severity Reaction Status Date / Time oxycodone Allergy Itching Unverified 04/23/19 18:29 propoxyphene Allergy Itching Unverified 04/23/19 18:29 [From [facility]] Home Medications Medication Instructions Recorded Confirmed Type amlodipine 5 mg PO DAILY tab-cap 08/02/15 08/17/19 History cholecalciferol (vitamin D3) 1 tab PO DAILY 04/11/16 08/17/19 History [Vitamin D3] levothyroxine [Synthroid] 25 mcg PO DAILY 04/11/16 08/17/19 History rabeprazole [AcipHex] 20 mg PO DAILY 12/29/16 08/17/19 History acetaminophen [Tylenol] 650 mg PO PRN tab-cap 01/31/18 08/17/19 History Eliquis 5 mg PO BID 12/30/18 08/17/19 History amiodarone 200 mg tablet 200 mg PO DAILY 06/26/19 08/17/19 History atenolol 25 mg tablet 25 mg PO DAILY 06/26/19 08/17/19 History lorazepam 1 mg tablet 1 mg PO TID PRN 06/26/19 08/17/19 History PFSH Social History Smoking/Tobacco Use Status: Never Drug use: Never Substance use type: does not use Do you feel safe at home: Yes Do you feel safe in your relationship?: Yes Meds Home Medications and Allergies Home Medications Medication Instructions Recorded Confirmed Type amlodipine 5 mg PO DAILY tab-cap 08/02/15 10/26/19 History cholecalciferol (vitamin D3) 1 tab PO DAILY 04/11/16 10/26/19 History [Vitamin D3] levothyroxine [Synthroid] 25 mcg PO DAILY 04/11/16 10/26/19 History rabeprazole [AcipHex] 20 mg PO DAILY 12/29/16 10/26/19 History acetaminophen [Tylenol] 650 mg PO PRN tab-cap 01/31/18 10/26/19 History Eliquis 5 mg PO BID 12/30/18 10/26/19 History amiodarone 200 mg tablet 200 mg PO DAILY 06/26/19 10/26/19 History atenolol 25 mg tablet 25 mg PO BID 06/26/19 10/26/19 History oxycodone 10 mg tablet 10 mg PO BID PRN #10 tab MDD 2 10/11/19 10/26/19 Rx chlorthalidone 50 mg PO DAILY 10/12/19 10/26/19 History Allergies Allergy/AdvReac Type Severity Reaction Status Date / Time oxycodone Allergy Itching Unverified 10/12/19 17:01 propoxyphene Allergy Itching Unverified 10/12/19 17:01 [From [facility]] Exam Resp Effort & Inspection: normal respiratory effort Auscultation: clear to auscultation bilaterally Cardio Rate: regular rate Rhythm: regular rhythm Results Last Vital Signs Temp 36.1 C L 10/26/19 07:24 Pulse 58 L 10/26/19 07:24 Resp 16 10/26/19 07:24 BP 132/75 10/26/19 07:24 Pulse Ox 97 10/26/19 07:24
[2019-10-26] MEDS: ceFAZolin 1 GM/50 ML BAG IVPB (09:56)
[2019-10-26] MEDS: Lidocaine 2% Jelly 6 ML SYR (10:08)
[2019-10-26] MEDS: Omnipaque 300 MG/ML 50 ML BTL (11:04)
[2019-10-26 11:10] VITALS: BP 163/81; PULSE 59; RESP 19; TEMP 36.6; O2SAT 99
--- NOTE | 2019-10-26 11:10 | W.PM.DSUDISC ---
Discharge Plan Disposition Patient Disposition: HOME Condition: Stable Discharge Details Attending Provider: Mukund Petersen Primary Care Provider: Althea Hamilton Home Meds and New Rx's Prescriptions: Continued oxycodone 10 mg tablet 10 mg PO BID MDD 2 PRN (Reason: pain) Qty: 20 RF: 0 No Action amiodarone 200 mg tablet 200 mg PO DAILY RF: 0 atenolol 25 mg tablet 25 mg PO BID RF: 0 amlodipine 5 MG tablet 5 mg PO DAILY RF: 0 acetaminophen [Tylenol] 325 MG tablet 650 mg PO PRN RF: 0 levothyroxine [Synthroid] 50 MCG tablet 25 mcg PO DAILY RF: 0 cholecalciferol (vitamin D3) [Vitamin D3] 1,000 UNIT capsule 1 tab PO DAILY RF: 0 rabeprazole [AcipHex] 20 MG tablet,delayed release (DR/EC) 20 mg PO DAILY RF: 0 chlorthalidone 50 mg Tablet 50 mg PO DAILY RF: 0 Eliquis 5 mg Tablet 5 mg PO BID RF: 0 Discharge Instructions Additional Instructions: OK to restart anticoagulants Wednesday10/29/2019 Followup appt 4 to 6 weeks with renal ultrasound script for pain meds sent to pharmacy (refill on Oxycodone) no need to strain urine Activity:: Activity as Tolerated Shower/Bathe:: 24 hours Diet:: As Tolerated Discharge Orders Discharge Orders: Discharge Order (Routine); Ordered 10/26/19 Ordered By: Mukund Petersen DS: Diagnosis Discharge Diagnosis (1) Left ureteral stone: Status: Acute (2) Hydrocele: Status: Acute
[2019-10-26 11:15] VITALS: BP 170/97; PULSE 59; RESP 15; TEMP 36.6; O2SAT 98
[2019-10-26 11:20] VITALS: BP 162/76; PULSE 56; RESP 18; TEMP 36.6; O2SAT 98
--- NOTE | 2019-10-26 11:27 | DI.RAD_ITS ---
EXAM: XR RETROGRADE IN OR INDICATION: left ureter stone. COMPARISON: No exams were available for comparison TECHNIQUE: 2D digital imaging was performed. Fluoro time: 42.2 sec, 12.48 mGy FINDINGS: Fluoroscopy was utilized by Dr. Petersen in the OR during the retrograde evaluation of the left renal c ollecting system. Please refer to the procedure report for complete details.
[2019-10-26 11:35] VITALS: BP 146/83; PULSE 53; RESP 15; TEMP 36.6; O2SAT 98
[2019-10-26] MEDS: Phenazopyridine 200 MG TAB PO (12:02)
[2019-10-26] MEDS: oxyCODONE 5 MG TAB 10 MG PO (12:20)
[2019-10-26 12:40] VITALS: BP 160/65; PULSE 51; RESP 16; TEMP 36.2; O2SAT 96
--- NOTE | 2019-10-27 09:25 | ROE_ITS ---
DATE OF PROCEDURE: October 26, 2019 PREOPERATIVE DIAGNOSIS: 1. Left ureteral stone. 2. Left hydrocele. POSTOPERATIVE DIAGNOSIS: Same. PROCEDURE: Cystoscopy; left retrograde pyelogram; left ureteral dilation; left semi-rigid ureterosco py; holmium laser lithotripsy of distal ureteral stone; extraction of multiple stone fragments. Aspi ration of hydrocele. SURGEON: Mukund Petersen M.D. ANESTHESIA: General. COMPLICATIONS: None. ESTIMATED BLOOD LOSS: Minimal. HISTORY: This is a 74-year-old gentleman who has a history of kidney stones. He has had hematuria w ith intermittent lower abdominal discomfort. On CT scan a previously-identified left lower pole ston e was now seen in the left distal ureter. He presents for stone manipulation. In addition to his stone issues, he has a large left hydrocele. He has had it aspirated intermittent ly, as his cardiac status has been optimized. He would now qualify for a surgical procedure. He is not interested in the length of time needed for recovery. He has asked if the left hydrocele could b e aspirated under anesthesia as well. OPERATIVE REPORT: The patient was brought to the operating room on 10/26/2019. After successful amira ction of general anesthesia, he was placed in the dorsal lithotomy position. His genitalia was prepp ed and draped. We began by aspirating the left hydrocele. A 23 gauge butterfly needle was passed through the scrota l skin into the hydrocele sac. A total of 140 cc's of yellowish fluid was then aspirated. The needl e was removed with no complication. We then instilled 2% Xylocaine jelly into the urethra. A 22 Canadian rigid cystoscope was passed throu gh the urethra into the bladder. The urethra and bladder were inspected with a 30-degree lens. The pendulous, bulbous and membranous urethras all appeared normal with no strictures. The prostatic urethra showed some trilobar enlargement and increased vascularity. No papillary lesions were seen. The bladder neck was entered and the bladder mucosa was inspected. The right ureteral orifice appear ed quite normal, but the left orifice was edematous. The remainder of the bladder showed no papillar y or nodular lesions. I then passed a 6 Canadian access catheter through the cystoscope and maneuvered it into the right uret eral orifice. A retrograde film was obtained by injecting Omnipaque through the access catheter unde r fluoroscopic guidance. A filling defect corresponding to a ureteral stone was then identified. I was able to pass a guidewire up through the access catheter and maneuver it above the level of the stone. Because of resistance met to the passage of the wire we decided to dilate the distal ureter u sing a UroMax balloon. We used a 10 cm long balloon to accomplish the dilation. Once it was complet ed, the balloon was removed and I was able to successfully pass a semi-rigid ureteroscope through the urethra and maneuver into the left ureteral orifice. Within a centimeter of two of the orifice we encountered a large ureteral stone. It was felt that th e stone was too large to grasp and remove in one, so we chose a 365 holmium laser fiber and broke the stone into two fragments. We utilized a rate of 8 and a power setting of 800. Once the stone fractured we grasped each of the two fragments in a Fay stone basket and removed ea ch in its entirety. The patient tolerated the procedure well with no complications. There was no obvious ureteral injury so we elected not to place a ureteral stent. cc: Althea Hamilton M.D.
[2019-11-02 09:10] LABS: Source: Left Ureter
== END 2019-10-26 13:15 | disposition home or self-care (01) ==
PROVIDERS: PCP Family Medicine; Visit Provider Urology
PROC: (CPT 52353; principal; 2019-10-26 08:30)
DX: N20.1 Calculus of ureter (principal); N43.3 Hydrocele, unspecified
CPT/HCPCS: 52353; 52344; 55000; NC; 74420; 82365; J0690; J1100; J2001; J2405; J2704; Q9967

== ENCOUNTER 2019-12-01 02:14 | Outpatient (CLI) | payer MEDICARE, OTHER, SELFPAY ==
--- NOTE | 2019-12-01 08:00 | DI.US_ITS ---
EXAM: US RENAL CLINICAL HISTORY: r/o hydronephrosis, lt ureteral stone, calculus of ureter, N20.1 TECHNIQUE: Ultrasound performed using standard protocol. COMPARISON: ABD PELVIS WITH CONTRAST from 09/03/2016 ABD PELVIS WO CONTRAST from 12/08/2016 CT pelvic w from 04/23/2019 CT ABDOMEN PELVIS WO/W from 06/13/2019 XR RETROGRADE IN OR from 10/26/2019 FINDINGS: The right kidney measures 10.7 cm in length. The left kidney measures 10.0 cm in length. No stones or hydronephrosis is visible. Left kidney shows a 1.5 centimeters cyst. The bladder prevoid volume measured 82 cc. There is a postvoid residual of 72 cc. There is mild bladder wall trabeculation. A small amount of debris is noted in the bladder. Both ureteral jets were visualized. The prostate is enlarged with a volume of 62 cc. IMPRESSION: Large prostate and elevated postvoid residual. No evidence of hydronephrosis or renal calculi. DATA REPOSITORY:
== END 2019-12-01 02:34 ==
PROVIDERS: Visit Provider Urology
DX: N20.1 Calculus of ureter (principal); N40.0 Benign prostatic hyperplasia without lower urinary tract symptoms; R39.198 Other difficulties with micturition; N28.1 Cyst of kidney, acquired
CPT/HCPCS: 76770; 99213

== ENCOUNTER → 2020-02-23 14:41 | Outpatient (BNVA) | payer MEDICARE, OTHER, SELFPAY | PROVIDERS: Visit Provider Urology | DX: N43.3 Hydrocele, unspecified (principal) | CPT/HCPCS: 55000; 99212 ==

== ENCOUNTER → 2020-04-30 11:08 | Outpatient (BNVA) | payer MEDICARE, OTHER, SELFPAY | PROVIDERS: Visit Provider Urology | DX: N39.0 Urinary tract infection, site not specified (principal); I10 Essential (primary) hypertension; R35.0 Frequency of micturition; R30.0 Dysuria; N20.0 Calculus of kidney; N43.3 Hydrocele, unspecified | CPT/HCPCS: 81003; 99212 ==

== ENCOUNTER 2020-04-30 12:47 | Outpatient (REF) | payer MEDICARE, OTHER, SELFPAY | END 2020-04-30 13:07 | LOC: LBN 12:47 | PROVIDERS: Visit Provider Urology | DX: N39.0 Urinary tract infection, site not specified (principal) | CPT/HCPCS: 87077; 87086; 87186 ==

== ENCOUNTER → 2020-05-17 13:32 | Outpatient (BNVA) | payer MEDICARE, OTHER, SELFPAY | PROVIDERS: Visit Provider Urology | DX: N39.0 Urinary tract infection, site not specified (principal); I10 Essential (primary) hypertension | CPT/HCPCS: 81003; 99213 ==

== ENCOUNTER 2020-06-18 10:28 | Outpatient (REF) | payer MEDICARE, OTHER, SELFPAY | END 2020-06-18 10:48 | LOC: LBN 10:28 | PROVIDERS: Visit Provider Nurse Practitioner Gerontology | DX: N39.0 Urinary tract infection, site not specified (principal) | CPT/HCPCS: 87077; 87086; 87186 ==

== ENCOUNTER → 2020-06-18 15:30 | Outpatient (BNVA) | payer MEDICARE, OTHER, SELFPAY | PROVIDERS: Visit Provider Nurse Practitioner Gerontology | DX: N39.0 Urinary tract infection, site not specified (principal); I10 Essential (primary) hypertension | CPT/HCPCS: 81003; 99213 ==

== ENCOUNTER → 2020-07-18 14:52 | Outpatient (BNVA) | payer MEDICARE, OTHER, SELFPAY | PROVIDERS: PCP Family Medicine; Visit Provider Urology | DX: N43.3 Hydrocele, unspecified (principal); Z87.440 Personal history of urinary (tract) infections | CPT/HCPCS: 55000; 81003; 99213 ==

== ENCOUNTER → 2020-08-16 10:23 | Outpatient (BNVA) | payer MEDICARE, OTHER, SELFPAY | PROVIDERS: PCP Family Medicine; Referring Provider Family Medicine; Visit Provider Urology | DX: N39.0 Urinary tract infection, site not specified (principal); R35.0 Frequency of micturition; Z87.440 Personal history of urinary (tract) infections; I10 Essential (primary) hypertension | CPT/HCPCS: 99212 ==

== ENCOUNTER 2020-08-16 13:13 | Outpatient (REF) | payer MEDICARE, OTHER, SELFPAY ==
[2020-08-16 17:47] LABS: Bilirubin Negative (Negative); Blood Negative (Negative); Clarity Clear (Clear); Glucose Negative (Negative); Ketones Negative (Negative); Leukocyte Esterase Negative (Negative); Nitrite Negative (Negative); Specific Gravity 1.025 (1.005-1.025); Urobilinogen 0.2 EU/dL (Up TO 0.2)
== END 2020-08-16 13:33 ==
LOC: LBN 13:13
PROVIDERS: PCP Family Medicine; Visit Provider Urology
DX: R35.0 Frequency of micturition (principal); N39.0 Urinary tract infection, site not specified
CPT/HCPCS: 81003; 87086

== ENCOUNTER → 2020-09-04 11:17 | Outpatient (BNVA) | payer MEDICARE, OTHER, SELFPAY | PROVIDERS: PCP Family Medicine; Referring Provider Family Medicine; Visit Provider Nurse Practitioner Gerontology | DX: R35.0 Frequency of micturition (principal); R97.20 Elevated prostate specific antigen [PSA] | CPT/HCPCS: 81003; 99213 ==

== ENCOUNTER 2020-09-04 12:19 | Outpatient (REF) | payer MEDICARE, OTHER, SELFPAY ==
[2020-09-04 21:47] LABS: PSA, Diagnostic 7.4 ng/mL (0.0-6.5)
== END 2020-09-04 12:39 ==
LOC: LBN 12:19
PROVIDERS: PCP Family Medicine; Visit Provider Nurse Practitioner Gerontology
DX: R97.20 Elevated prostate specific antigen [PSA] (principal)
CPT/HCPCS: 84153

== ENCOUNTER 2021-03-12 02:48 | Outpatient (CLI) | payer MEDICARE, OTHER, SELFPAY ==
[2021-03-12 17:26] LABS: PSA, Diagnostic 5.7 ng/mL (0.0-6.5)
== END 2021-03-12 02:49 | disposition home or self-care (01) ==
LOC: LBO 02:48
PROVIDERS: Nurse Practitioner Gerontology; PCP Family Medicine; Visit Provider Urology
DX: R97.20 Elevated prostate specific antigen [PSA] (principal)
CPT/HCPCS: 36415; 84153

== ENCOUNTER → 2021-03-18 14:57 | Outpatient (BNVA) | payer MEDICARE, OTHER, SELFPAY | PROVIDERS: PCP Family Medicine; Referring Provider Family Medicine; Visit Provider Nurse Practitioner Gerontology | DX: R35.0 Frequency of micturition (principal); R97.20 Elevated prostate specific antigen [PSA] | CPT/HCPCS: 99214 ==

== ENCOUNTER → 2021-03-27 15:27 | Outpatient (BNVA) | payer MEDICARE, OTHER, SELFPAY | PROVIDERS: PCP Family Medicine; Referring Provider Family Medicine; Visit Provider Urology | DX: N43.2 Other hydrocele (principal); Z79.01 Long term (current) use of anticoagulants | CPT/HCPCS: 55000; 99213 ==

== ENCOUNTER → 2021-09-08 13:17 | Outpatient (BNVA) | payer MEDICARE, OTHER, SELFPAY | PROVIDERS: PCP Family Medicine; Referring Provider Family Medicine; Visit Provider Urology | DX: N39.0 Urinary tract infection, site not specified (principal); R97.20 Elevated prostate specific antigen [PSA] | CPT/HCPCS: 81003; 99214 ==

== ENCOUNTER 2021-09-08 17:07 | Outpatient (REF) | payer MEDICARE, OTHER, SELFPAY | END 2021-09-08 17:08 | disposition home or self-care (01) | LOC: LBN 17:07 | PROVIDERS: PCP Family Medicine; Visit Provider Urology | DX: R30.0 Dysuria (principal) | CPT/HCPCS: 87086 ==

== ENCOUNTER → 2021-09-29 13:44 | Outpatient (BNVA) | payer MEDICARE, OTHER, SELFPAY | PROVIDERS: PCP Family Medicine; Referring Provider Family Medicine; Visit Provider Urology | DX: N43.3 Hydrocele, unspecified (principal); R97.20 Elevated prostate specific antigen [PSA]; Z87.442 Personal history of urinary calculi | CPT/HCPCS: 55000; 99213 ==

== ENCOUNTER → 2021-12-30 12:55 | Outpatient (BNVA) | payer MEDICARE, OTHER, SELFPAY | PROVIDERS: PCP Family Medicine; Referring Provider Family Medicine; Visit Provider Urology | DX: N43.3 Hydrocele, unspecified (principal); N20.0 Calculus of kidney; R97.20 Elevated prostate specific antigen [PSA] | CPT/HCPCS: 55000 ==

== ENCOUNTER → 2022-03-31 08:49 | Outpatient (BNVA) | payer MEDICARE, OTHER, SELFPAY | PROVIDERS: PCP Family Medicine; Referring Provider Family Medicine; Visit Provider Urology | DX: N43.3 Hydrocele, unspecified (principal); R97.20 Elevated prostate specific antigen [PSA] | CPT/HCPCS: 99215 ==

== ENCOUNTER → 2022-07-28 13:01 | Outpatient (CLI) | payer MEDICARE, OTHER, SELFPAY ==
--- NOTE | 2022-07-28 | DI.RAD_ITS ---
Exam(s) STERNOCLAVICULAR JOINT/S EXAM: STERNOCLAVICULAR JOINT/S CLINICAL HISTORY: CLAVICLE PAIN--M89.8x8. TECHNIQUE: 2D digital imaging was performed. COMPARISON: CR XR CHEST 2V PA LATERAL from 12/30/2018 FINDINGS: 3 views Three dedicated views of the sternoclavicular joints reveal normal-appearing joints for this age grou p. No fractures. No prominent degenerative changes. No dislocation. No osseous lesions. IMPRESSION: Unremarkable plain film appearance of both sternoclavicular joints DATA REPOSITORY: RADIATION DOSE DELIVERED:
--- NOTE | 2022-07-28 | DI.RAD_ITS ---
Exam(s) XR CLAVICLE LT EXAM: XR CLAVICLE LT CLINICAL HISTORY: CLAVICLE PAIN--M89.8x8. TECHNIQUE: 2D digital imaging was performed. COMPARISON: No exams were available for comparison FINDINGS: 3 views No evidence of acute fracture but there is upward subluxation of the humeral head in the osseous teddy oid fossa with limitation of the subacromial space, consistent with chronic rotator cuff tear. There is also osteophyte on the inferior articular surface of the humeral head. Degenerative changes also noted in the AC joint. IMPRESSION: Degenerative changes in the glenohumeral and AC joint. Diminished subacromial space with upward subl uxation of the humeral head. Above findings are consistent with chronic rotator cuff tear pathology. If clinically indicated foll ow-up MRI can be performed. DATA REPOSITORY: RADIATION DOSE DELIVERED:
== END ==
PROVIDERS: PCP Family Medicine; Visit Provider Nurse Practitioner Family
DX: M89.8X8 Other specified disorders of bone, other site (principal)
CPT/HCPCS: 71130; 73000

== ENCOUNTER 2022-07-28 18:00 | Outpatient (REF) | payer MEDICARE, OTHER, SELFPAY ==
[2022-07-28 18:13] LABS: Abs Immature Grans 0.04 10^3/uL (0.0-0.06); Absolute Basophil Count 0.03 10^3/uL (0.0-0.2); Absolute Lymphocyte Count 1.17 10^3/uL (1.2-3.4); Absolute Monocyte Count 1.22 10^3/uL (0.1-0.8); Absolute Neutrophil Count 8.19 10^3/uL (1.2-6.7); Basophils % 0.3; Eosinophils % 0.9; HGB 14.3 g/dL (13.5-17.5); Immature Grans % 0.4; Lymphocytes % 10.9; MCH 31.8 pg (27.0-33.0); MCHC 33.3 % (32.0-36.0); MCV 96 fL (80-95); MPV 10.3 fL (8.0-11.0); Monocytes % 11.3; Neutrophils % 76.2; Platelet Count 258 10^3/uL (130-400); RDW 13.5 % (11.8-14.1); RDW-SD 47.7 fL; WBC 10.75 10^3/uL (4.4-10.8)
[2022-07-28 18:20] LABS: ESR 72 mm/hr (0-20)
[2022-07-28 18:24] LABS: C-Reactive Protein 5.96 mg/dL (0.0-0.3)
== END 2022-07-28 18:01 | disposition home or self-care (01) ==
LOC: LBN 18:00
PROVIDERS: PCP Family Medicine; Visit Provider Nurse Practitioner Family
DX: R05.8 Other specified cough (principal); M89.8X8 Other specified disorders of bone, other site
CPT/HCPCS: 85652; 85025; 86140

== ENCOUNTER → 2022-08-04 12:41 | Outpatient (BNVA) | payer MEDICARE, OTHER, SELFPAY | PROVIDERS: PCP Family Medicine; Referring Provider Family Medicine; Visit Provider Urology | DX: N43.3 Hydrocele, unspecified (principal); I48.91 Unspecified atrial fibrillation; Z79.01 Long term (current) use of anticoagulants; R97.20 Elevated prostate specific antigen [PSA] | CPT/HCPCS: 55000 ==

== ENCOUNTER 2022-11-03 03:03 | Outpatient (CLI) | payer MEDICARE, OTHER, SELFPAY ==
[2022-11-03 22:53] LABS: PSA, Diagnostic 5.8 ng/mL (<=6.5)
[2022-11-05 15:44] LABS: Albumin 61.2 % (55.8-66.1); Albumin g/dL 4.3 g/dL (3.6-5.2); Immunotyping, Serum (See Note); Monoclonal Spike 3.6 % (None Seen); Monoclonal Spike g/dL 0.3 g/dL (None Seen)
== END 2022-11-03 03:04 | disposition home or self-care (01) ==
LOC: LBO 03:04
PROVIDERS: Psychiatry & Neurology Neurology; PCP Family Medicine; Visit Provider Urology
DX: R97.20 Elevated prostate specific antigen [PSA] (principal)
CPT/HCPCS: 36415; 84153; 84155; 84165; 86320

== ENCOUNTER → 2022-11-10 12:48 | Outpatient (BNVA) | payer MEDICARE, OTHER, SELFPAY | PROVIDERS: PCP Family Medicine; Referring Provider Family Medicine; Visit Provider Urology | DX: R97.20 Elevated prostate specific antigen [PSA] (principal); N43.3 Hydrocele, unspecified | CPT/HCPCS: 55000; 76870 ==

== ENCOUNTER 2022-11-21 18:30 | Observation (INO) | payer MEDICARE, OTHER, SELFPAY ==
[2022-11-21] VITALS (50 sets, daily range): BP systolic 117–137; BP diastolic 62–75; PULSE 59–80; RESP 9–39; TEMP 36.6; O2SAT 98
--- NOTE | 2022-11-21 18:15 | RT.EKG_ITS ---
APPROVED REPORT Exam: Resting ECG Reason for Exam: vertigo Patient Location: E HR:72 bpm ECG Measurements Heart Rate 72 AXIS NJ 239 P 30 QRSd 103 QRS 17 QT [id number] T 10 QTc 0 Conclusion Sinus rhythm...normal P axis, V-rate 60- 99 Prolonged NJ interval...NJ >220, V-rate 50- 90
--- NOTE | 2022-11-21 18:34 | NUR.NOTE ---
bgm 157
--- NOTE | 2022-11-21 18:45 | DI.CT_ITS ---
Exam(s) CT BRAIN NECK CTA EXAM: CT BRAIN NECK CTA CLINICAL HISTORY: vertigo, broken speech, double vision. TECHNIQUE: Imaging Protocol: Axial CT angiography was performed with multi-slice acquisition and mu lti-planar and 3D reconstructions. CONTRAST MATERIAL: Intravenous: Omnipaque 350 Contrast volume:85ml COMPARISON: CT CT ABDOMEN PELVIS WO/W from 06/13/2019 FINDINGS: CT Head W/O and W contrast: Ventricles and Extra axial spaces: Normal in size and morphology for the patient's age. Hemorrhage: None. Cerebral parenchyma: Normal. Midline shift: None. Brainstem/Cerebellum: Normal. Calvarium: Normal. Visualized Paranasal sinuses/Mastoids: Clear. Soft Tissues: Unremarkable. Enhancement: Normal. CTA Brain W: Internal Carotid Arteries: Calcified plaque in both carotid siphons. No significant stenosis. Cerebral: Normal. Middle Cerebral Arteries: Right: No aneurysm, occlusion or significant stenosis. Left: No aneurysm, occlusion or significant stenosis. Anterior Cerebral Arteries: Right: No aneurysm, occlusion or significant stenosis. Left: No aneurysm, occlusion or significant stenosis. Posterior cerebral Arteries: Right: No aneurysm, occlusion or significant stenosis. Left: No aneurysm, occlusion or significant stenosis. Vertebral Arteries: Right: Heavy calcified plaque V4 segment. [id number] focal stenosis. No aneurysm, or occlusio n. Left: Dominant. Heavy calcified plaque before segment. No aneurysm, or occlusion. Basilar Artery: No aneurysm, occlusion or significant stenosis. CTA Neck W: Common Carotid: Right: No aneurysm, occlusion or significant stenosis. Left: No aneurysm, occlusion or significant stenosis. External Carotid: Right: No aneurysm, occlusion or significant stenosis. Left: No aneurysm, occlusion or significant stenosis. Internal Carotid: Right: Calcified and noncalcified plaque at the bulb and proximal internal carotid artery causing mil d stenosis. No dissection or occlusion.. Left: Mixed plaque at the common carotid bulb and proximal left internal carotid artery causing mild stenosis. Vertebral Artery: Right: No aneurysm, occlusion or significant stenosis. Left: No aneurysm, occlusion or significant stenosis. Lung Apices: Normal. Bones: Advanced degenerative changes in the cervical spine. Soft Tissues: Normal. IMPRESSION: 1. Focal calcification in the distal bilateral vertebral arteries causing [id number] stenosis. 2. Unremarkable CT Head. 3. Mild amount of calcific and noncalcific plaque at the common carotid bulb and proximal internal ca rotid arteries causing mild,, approximately 20-30 percent stenosis. RADIATION DOSE DELIVERED: 2,147.59mGy.cm Total DLP DATA REPOSITORY: All CT scans at this facility are submitted to the National Radiology Data Registry (NRDR) Dose Index Registry (DIR) with the [employer] ([employer]). RADIATION OPTIMIZATION: All CT scans at this facility use at least one of these dose optimization te chniques: automated exposure control; mA and/or kV adjustment per patient size (includes targeted exa ms where dose is matched to clinical indication); or iterative reconstruction.
[2022-11-21 18:53] LABS: Abs Immature Grans 0.03 10^3/uL (0.0-0.06); Absolute Basophil Count 0.05 10^3/uL (0.0-0.2); Absolute Eosinophil Count 0.04 10^3/uL (0.0-0.7); Absolute Lymphocyte Count 1.41 10^3/uL (1.2-3.4); Absolute Monocyte Count 0.82 10^3/uL (0.1-0.8); Absolute Neutrophil Count 6.59 10^3/uL (1.2-6.7); Basophils % 0.6; Eosinophils % 0.4; HCT 39.3 % (40.0-50.0); Immature Grans % 0.3; Lymphocytes % 15.8; MCH 31.3 pg (27.0-33.0); MCHC 33.1 % (32.0-36.0); MCV 95 fL (80-95); MPV 9.6 fL (8.0-11.0); Monocytes % 9.2; Neutrophils % 73.7; Platelet Count 244 10^3/uL (130-400); RBC 4.16 10^6/uL (4.36-5.78); RDW 14.4 % (11.8-14.1); RDW-SD 49.3 fL; WBC 8.94 10^3/uL (4.4-10.8)
--- NOTE | 2022-11-21 19:01 | ED.GENADUL_ITS ---
Discharge Plan Discharge Details Chief Complaint: CVA/TIA Primary Care Provider: Allan Shaffer ED Provider: Javier Amezquita Home Meds and New Rx's Prescriptions: No Action amiodarone 200 mg tablet 200 mg PO DAILY potassium chloride 10 mEq capsule, extended release 10 meq PO DAILY potassium chloride 10 mEq capsule, extended release 10 meq PO DAILY amlodipine 5 MG tablet 5 mg PO DAILY acetaminophen [Tylenol] 325 MG tablet 650 mg PO PRN cholecalciferol (vitamin D3) [Vitamin D3] 25 mcg (1,000 unit) capsule 2,000 unit PO DAILY levothyroxine [Synthroid] 50 mcg tablet 75 mcg PO DAILY rabeprazole [AcipHex] 20 MG tablet,delayed release (DR/EC) 20 mg PO DAILY potassium chloride 10 mEq tablet extended release PO levothyroxine [Synthroid] 75 mcg tablet 75 mcg PO 1XD levothyroxine [Synthroid] 75 mcg tablet Eliquis 5 mg Tablet 5 mg PO BID Medical Decision Making 1911 --77-year-old male with multiple medical problems including history of A- fib, hypertension, hyperlipidemia, here with vertigo, double vision, garbled speech and nausea vomiting. Symptoms started around 4 PM. Patient has full strength and sensation in all extremities. Concern for posterior circulation mass versus hemorrhage. Plan to obtain stat CT of the brain and CTA of the brain and neck. Patient is actively vomiting. I will give Zofran 4 mg IV. Screening EKG was reviewed and interpreted by me: Sinus rhythm 72 bpm, normal axis, prolonged ND interval of 239. 2001 --labs reviewed and elevated anion gap of 13 noted. Patient receiving IV fluid bolus. Urinalysis pending. CT of the head and CTA of the brain and neck pending interpretation. HPI General Mode of arrival: EMS . Date/Time Provider Initiated Documentation: 11/21/22 18:35 . Limitations to Documentation: other (broken speech) . Information obtained by: patient and family . HPI Narrative: 77-year-old male with history of intermittent vertigo, hypertension, hypothyroidism, atrial fibrillation, here with chief complaint of vertigo. Patient notes vertigo since 2 PM. Patient notes he has chronic intermittent vertigo. Vertigo today is severe. He states when he opens his eyes and look side to side he has double vision which is also a chronic issue. notes since 1730 he has had difficulty with his speech. He has associated nausea. No headache. No associated fever. Related Data Home Medications Medication Instructions Recorded Confirmed amlodipine 5 mg tablet 5 mg PO DAILY 08/02/15 11/21/22 rabeprazole 20 mg tablet,delayed 20 mg PO DAILY 12/29/16 11/21/22 release (AcipHex) acetaminophen 325 mg tablet 650 mg PO PRN 01/31/18 11/21/22 (Tylenol) apixaban 5 mg tablet (Eliquis) 5 mg PO BID 12/30/18 11/21/22 amiodarone 200 mg tablet 200 mg PO DAILY 06/26/19 11/21/22 cholecalciferol (vitamin D3) 25 2,000 unit PO DAILY 02/23/20 11/21/22 mcg (1,000 unit) capsule (Vitamin D3) potassium chloride 10 mEq 10 meq PO DAILY 11/10/22 11/21/22 capsule,extended release potassium chloride 10 mEq 10 meq PO DAILY 11/10/22 11/21/22 capsule,extended release levothyroxine 75 mcg tablet 75 mcg PO 1XD 11/21/22 11/21/22 (Synthroid) levothyroxine 75 mcg tablet 75 mcg PO 1XD 11/21/22 11/21/22 (Synthroid) potassium chloride 10 mEq 10 meq PO 1XD 11/21/22 11/21/22 tablet,extended release Allergies Allergy/AdvReac Type Severity Reaction Status Date / Time oxycodone Allergy Itching Unverified 11/21/22 18:35 propoxyphene Allergy Itching Unverified 11/21/22 18:35 [From Darvocet-N] sulfamethoxazole Allergy itchy- not Verified 11/21/22 18:35 [From Bactrim] feeling well trimethoprim [From Bactrim] Allergy itchy- not Verified 11/21/22 18:35 feeling well General Stated Complaint: CVA/TIA PEDRO: 2 Review of Systems Constitutional Constitutional: Denies fever(s) and Denies weakness Neurologic Neurologic: Reports as per HPI, Denies sensory deficit and Denies weakness PFSH All Active Problems Elevated PSA (Acute) Primary osteoarthritis of both first carpometacarpal joints (Acute 09/18/15) Hydrocele (Acute) Medical History A-fib Calculus of left kidney (09/07/16) GERD (gastroesophageal reflux disease) Hydrocele in adult Hyperlipidemia Hypertension Left ureteral stone (09/07/16) Spinal arthritis Urinary tract infection Vitamin D deficiency Surgical History History of arthroscopy of left knee History of arthroscopy of right knee Hx of bilateral inguinal hernia repair Hx of colonoscopy Rotator Cuff Repair Right and Left Social History Smoking/Tobacco Use Status: Never Smoking risk assessment performed?: Yes Drug use: Never Substance use type: does not use Do you feel safe at home: Yes Do you feel safe in your relationship?: Yes Exam Const General: cooperative Orientation: alert and awake Other: eyes closed HENMT Head: normocephalic and atraumatic Mouth: mucous membranes dry Eyes Conjunctivae: normal conjunctivae Sclera: normal sclerae Neck Neck: trachea midline and supple Resp Auscultation: clear to auscultation bilaterally, no rales, no rhonchi and no wheezes Cardio Rate: regular rate and not tachycardic Rhythm: regular rhythm GI Palpation: soft, not firm, no guarding, no masses, not rigid and nontender Skin General skin exam: no rashes or lesions noted Neuro General: patient alert, patient awake, patient oriented x3 and tone normal Cranial Nerves: facial strength normal, tongue midline, hearing normal, able to rotate head bilaterally and able to elevate shoulders bilaterally Speech: abnormal speech garbled Motor: strength 5/5 throughout Sensory Exam: no sensory deficits noted Other: limitation to exam -patient notes double vision that reproduces symptoms when he opens his eyes. Unable to perform [id number]. Rapid alternating movements intact. Extrem General: no edema Psych Appearance: grossly normal Mental Status: mental status grossly normal Course Vital Signs Vital signs: Vital Signs Temperature 36.6 C 11/21/22 18:35 Pulse 75 11/21/22 18:35 Respiratory Rate 18 11/21/22 18:35 Blood Pressure 122/65 11/21/22 18:35 Pulse Oximetry 98 11/21/22 18:35 Temperature 36.6 C 11/21/22 18:35 Temperature Source Temporal Artery Scan 11/21/22 18:35 Pulse 75 11/21/22 18:35 Respiratory Rate 18 11/21/22 18:35 Respiratory Effort Normal, Non-Labored 11/21/22 18:33 Blood Pressure 122/65 11/21/22 18:35 Pulse Oximetry 98 11/21/22 18:35 Oxygen Delivery Method Room Air 11/21/22 18:35 Oxygen Flow Rate 0 11/21/22 18:35 Lab/Test Results Lab/Test Results: Laboratory Tests Range/Units 11/21/22 18:46 WBC (4.4-10.8) 10^3/uL 8.94 RBC (4.36-5.78) 10^6/uL 4.16 L Hgb (13.5-17.5) g/dL 13.0 L Hct (40.0-50.0) % 39.3 L MCV (80-95) fL 95 MCH (27.0-33.0) pg 31.3 MCHC (32.0-36.0) % 33.1 RDW (11.8-14.1) % 14.4 H Plt Count (130-400) 10^3/uL 244 MPV (8.0-11.0) fL 9.6 Immature Gran % 0.3 Neutrophils % 73.7 Lymphocytes % 15.8 Monocytes % 9.2 Eosinophils % 0.4 Basophils % 0.6 Nucleated RBC % (0.0-0.3) % 0.0 Absolute Neutrophils (1.2-6.7) 10^3/uL 6.59 Absolute Lymphocytes (1.2-3.4) 10^3/uL 1.41 Absolute Monocytes (0.1-0.8) 10^3/uL 0.82 H Absolute Eosinophils (0.0-0.7) 10^3/uL 0.04 Absolute Basophils (0.0-0.2) 10^3/uL 0.05
[2022-11-21] MEDS: Ondansetron 4 MG/2 ML VIAL IVP (19:08)
[2022-11-21 19:13] LABS: ALT 22 U/L (16-63); AST 23 U/L (15-37); Albumin 4.1 g/dL (3.4-5.0); Alkaline Phosphatase 108 U/L (46-116); BUN 24 mg/dL (7-18); Bilirubin, Total 0.3 mg/dL (0.2-1.0); CREATININE 1.4 mg/dL (0.70-1.30); Calcium 9.2 mg/dL (8.5-10.1); Chloride 104 mmol/L (98-107); Estimated GFR 51.13 (mL/min/1.73m2); Glucose 172 mg/dL (74-106); Potassium 3.3 mmol/L (3.5-5.1); Sodium 142 mmol/L (136-145); Total Protein 7.4 g/dL (6.4-8.2); Troponin I < 50 ng/L (<or=60)
[2022-11-21] MEDS: Lactated Ringers 250 ML IV (19:18)
[2022-11-21] MEDS: Normal Saline - Diluent 50 ML VIAL IJ (19:25)
[2022-11-21] MEDS: Omnipaque 350 MG/ML 100 ML BTL IJ (19:25)
[2022-11-21 19:41] LABS: Source Nasal/Nares
[2022-11-21 19:42] LABS: TSH (W/Ref FT4) 5.47 uIU/mL (0.36-3.74)
[2022-11-21 19:58] LABS: FREE T4 1.38 ng/dL (0.76-1.46)
[2022-11-21 20:11] LABS: COVID-19 PCR Negative (Negative)
--- NOTE | 2022-11-21 20:21 | DI.VRAD_ITS ---
PROCEDURE INFORMATION: Exam: CTA Head With Contrast, Arteriography Exam date and time: 11/21/2022 7:11 PM Age: 77 years old Clinical indication: Other: Vertigo broken speech double vision TECHNIQUE: Imaging protocol: Computed tomographic angiography of the head with contrast. Exam focused on the arteries. 3D rendering (Not supervised by radiologist): MIP and/or 3D reconstructed images were created by the technologist. Contrast material: 350; Contrast volume: 100 ml; Contrast route: INTRAVENOUS (IV); COMPARISON: No relevant prior studies available. FINDINGS: ANTERIOR CIRCULATION: Right internal carotid artery: Intracranial segment is patent with no hemodynamically significant stenosis. Calcified plaque in the carotid siphon. No aneurysm. Right middle cerebral artery: No occlusion or significant stenosis. No aneurysm. Right anterior cerebral artery: No occlusion or significant stenosis. No aneurysm. Left internal carotid artery: Intracranial segment is patent with no hemodynamically significant stenosis. There is moderate calcified plaque in the carotid siphon. No aneurysm. Left middle cerebral artery: No occlusion or significant stenosis. No aneurysm. Left anterior cerebral artery: No occlusion or significant stenosis. No aneurysm. POSTERIOR CIRCULATION: Right vertebral artery: Heavy calcified plaque in the left intradural vertebral artery in the V4 segment without hemodynamically significant stenosis. There might be mild to moderate focal stenosis (369 series 12). No aneurysm. Left vertebral artery is dominant. Left vertebral artery: Heavy focal calcified plaque in the intradural right vertebral artery in the V4 segment with probable moderate stenosis (63 series 11, 371 series 12). Basilar artery: No occlusion or significant stenosis. No aneurysm. Right posterior cerebral artery: No occlusion or significant stenosis. No aneurysm. P1 segment of the right posterior cerebral artery hypoplastic with dominant contribution from the posterior communicating artery, a normal variation. Left posterior cerebral artery: No occlusion or significant stenosis. No aneurysm. Brain: No definite mass, mass effect, or midline shift. Cerebral ventricles: No ventriculomegaly. Bones/joints: No acute fracture. Soft tissues: Unremarkable. IMPRESSION: 1. No large vessel high-grade stenosis or occlusion. 2. Calcified plaque in the bilateral intradural vertebral arteries with [id number] right vertebral artery stenosis and mild stenosis in the left vertebral artery. PROCEDURE INFORMATION: Exam: CTA Neck With Contrast Exam date and time: 11/21/2022 7:11 PM Age: 77 years old Clinical indication: Other: Vertigo broken speech double vision TECHNIQUE: Imaging protocol: Computed tomographic angiography of the neck with contrast. 3D rendering (Not supervised by radiologist): MIP and/or 3D reconstructed images were created by the technologist. Contrast material: 350; Contrast volume: 100 ml; Contrast route: INTRAVENOUS (IV); COMPARISON: CR STERNOCLAVICULAR JOINT/S 07/28/2022 12:45 PM FINDINGS: Right common carotid artery: No stenosis. No dissection or occlusion. Right internal carotid artery: Calcified and noncalcified plaque at the carotid bifurcation and the proximal internal carotid artery with 20% stenosis by NASCET criteria. Right external carotid artery: No occlusion or stenosis of the origin. Left common carotid artery: No stenosis. No dissection or occlusion. Left internal carotid artery: Calcified and noncalcified plaque in the carotid bifurcation and proximal internal carotid artery with 30% stenosis by NASCET criteria. Left external carotid artery: No occlusion or stenosis of the origin. Right vertebral artery: No stenosis. No dissection or occlusion. Left vertebral artery: No stenosis. No dissection or occlusion. Thyroid: There is a 8 mm high-density nodule in the right lobe of the thyroid gland. Soft tissues: Normal. No significant soft tissue swelling. Bones/joints: No acute fracture. Moderate to marked spondylosis and disc degenerative changes in the cervical spine. There is straightening of cervical lordosis with reversal. IMPRESSION: There is no occlusion . Calcified and noncalcified plaque in the left proximal internal carotid artery with approximately 30% stenosis by NASCET criteria. There is calcified plaque in the proximal right internal carotid artery with approximately 10-20% stenosis by NASCET criteria. There is no significant stenosis in the vertebral arteries in the neck. REFERENCES: NASCET CRITERIA. The degree of stenosis in the cervical segment of the internal carotid artery is based on NASCET criteria. Normal is no stenosis. Mild is less than 50% stenosis. Moderate is 50-69% stenosis. Severe is 70% to 99% stenosis. Total occlusion is no detectable patent lumen. Dictated and Authenticated by: Maximiliano Haddad MD. Ordering:ANAMIKA Herrera MD
[2022-11-21] MEDS: Meclizine 25 MG TAB PO (20:32)
[2022-11-21] MEDS: Lactated Ringers 500 ML 1000 ML IV (20:33)
[2022-11-21] MEDS: Metoclopramide 10 MG/2 ML VIAL IVP (21:04)
[2022-11-21 21:35] LABS: Bilirubin Negative (Negative); Blood Large (Negative); Clarity Clear (Clear); Glucose 100 mg/dL (Negative); Ketones 15 mg/dL (Negative); Leukocyte Esterase Negative (Negative); Nitrite Negative (Negative); Specific Gravity 1.015 (1.005-1.025); Urobilinogen 0.2 mg/dL (Up to 0.2)
[2022-11-21 21:42] LABS: Bacteria Negative HPF (Negative); C & S Indicated? No; Casts Negative LPF (Negative); Crystals Negative HPF (Negative); Epithelial Cells Rare HPF (Negative); Mucus Negative (Negative); Other Cells Negative (Negative); RBC >50 HPF (0-2)
--- NOTE | 2022-11-21 23:17 | ED.PROG_ITS ---
Date of service: 11/21/22 Time of Service: 20:00 Medical Decision Making 1999 --please see Dr. Amezquita's note for initial presentation, exam and plan. Case endorsed to follow-up on CTA head and neck imaging, discussion with [facility] neurology and final disposition. Patient is a 77-year-old male with a history of atrial fibrillation on Eliquis, GERD, hypertension, hyperlipidemia, vertigo, thyroid eye disease who presents for photophobia, dizziness, garbled speech and difficulty word finding that started at 1230pm today while driving. Patient states he has a history of chronic blurry vision and photophobia associated with the thyroid eye disease. He states while driving at 1230 today he felt his photophobia was much worse than usual. He describes also a spinning sensation while driving and feeling that things were moving. He states after this he felt difficulty finding words. His saw him around 4:00 and felt that he had garbled and stuttered speech. Patient endorses that he does not drink much water. He does endorse a history of vertigo but states this is much worse than previous. On exam he mostly keeps his eyes closed and when opening his eyes keeps right eye closed which she says he usually does at baseline with his thyroid eye disease. He does have vertical nystagmus. His vertigo is reproducible with head movement. 2129 -- Case discussed with [facility] neurology who reviewed imaging and does not find any findings on imaging which would correlate with patient's symptoms. They recommend Reilly-Hallpike's, head impulse test and additional cerebellar testing. If those diagnostic tests are reassuring, his symptoms may be consistent with peripheral vertigo but do recommend admission for continued monitoring, treatment of his dizziness if persistent and consideration for MRI brain. [employer]-Hallpike, head impulse test and [id number] testing reassuring and shows no evidence of nystagmus, correcting saccade or multidirectional eye movement however his dizziness is reproducible with head movement. These tests were performed after Zofran, meclizine and fluid bolus so this may have improved his exam. As patient still does endorse dizziness and feels that he cannot stand up secondary to worsening symptoms with movement, will admit for continued observation, IV fluid hydration, PT evaluation with plan for MRI brain on Wednesday. 2229 -- Case discussed with hospitalist who accepts patient for admission. Medical Records Medical records reviewed: Yes I reviewed the patient's medical records. Imaging Data Radiologic Study: Radiologist's impression: CTA Head With Contrast, Arteriography Exam date and time: 11/21/2022 7:11 PM Age: 77 years old Clinical indication: Other: Vertigo broken speech double vision TECHNIQUE: Imaging protocol: Computed tomographic angiography of the head with contrast. Exam focused on the arteries. 3D rendering (Not supervised by radiologist): MIP and/or 3D reconstructed images were created by the technologist. Contrast material: 350; Contrast volume: 100 ml; Contrast route: INTRAVENOUS (IV);? COMPARISON: No relevant prior studies available. FINDINGS: ANTERIOR CIRCULATION: Right internal carotid artery: Intracranial segment is patent with no hemodynamically significant stenosis. Calcified plaque in the carotid siphon. No aneurysm. Right middle cerebral artery: No occlusion or significant stenosis. No aneurysm.? Right anterior cerebral artery: No occlusion or significant stenosis. No aneurysm.? Left internal carotid artery: Intracranial segment is patent with no hemodynamically significant stenosis. There is moderate calcified plaque in the carotid siphon. No aneurysm. Left middle cerebral artery: No occlusion or significant stenosis. No aneurysm. ? Left anterior cerebral artery: No occlusion or significant stenosis. No aneurysm.? POSTERIOR CIRCULATION: Right vertebral artery: Heavy calcified plaque in the left intradural vertebral artery in the V4 segment without hemodynamically significant stenosis. There might be mild to moderate focal stenosis (369 series 12). No aneurysm.? Left vertebral artery is dominant. Left vertebral artery: Heavy focal calcified plaque in the intradural right vertebral artery in the V4 segment with probable moderate stenosis (63 series 11, 371 series 12). Basilar artery: No occlusion or significant stenosis. No aneurysm. Right posterior cerebral artery: No occlusion or significant stenosis. No aneurysm. P1 segment of the right posterior cerebral artery hypoplastic with dominant contribution from the posterior communicating artery, a normal variation. Left posterior cerebral artery: No occlusion or significant stenosis. No aneurysm.? Brain: No definite mass, mass effect, or midline shift. Cerebral ventricles: No ventriculomegaly. Bones/joints: No acute fracture. Soft tissues: Unremarkable. IMPRESSION: 1. No large vessel high-grade stenosis or occlusion. 2. Calcified plaque in the bilateral intradural vertebral arteries with [id number] right vertebral artery stenosis and mild stenosis in the left vertebral artery. CTA Neck With Contrast Exam date and time: 11/21/2022 7:11 PM Age: 77 years old Clinical indication: Other: Vertigo broken speech double vision TECHNIQUE: Imaging protocol: Computed tomographic angiography of the neck with contrast. 3D rendering (Not supervised by radiologist): MIP and/or 3D reconstructed images were created by the technologist. Contrast material: 350; Contrast volume: 100 ml; Contrast route: INTRAVENOUS (IV);? COMPARISON: CR STERNOCLAVICULAR JOINT/S 07/28/2022 12:45 PM FINDINGS: Right common carotid artery: No stenosis. No dissection or occlusion. Right internal carotid artery: Calcified and noncalcified plaque at the carotid bifurcation and the proximal internal carotid artery with 20% stenosis by NASCET criteria. Right external carotid artery: No occlusion or stenosis of the origin.? Left common carotid artery: No stenosis. No dissection or occlusion. Left internal carotid artery: Calcified and noncalcified plaque in the carotid bifurcation and proximal internal carotid artery with 30% stenosis by NASCET criteria. Left external carotid artery: No occlusion or stenosis of the origin.? Right vertebral artery: No stenosis. No dissection or occlusion. Left vertebral artery: No stenosis. No dissection or occlusion. Thyroid: There is a 8 mm high-density nodule in the right lobe of the thyroid gland. Soft tissues: Normal. No significant soft tissue swelling. Bones/joints: No acute fracture. Moderate to marked spondylosis and disc degenerative changes in the cervical spine. There is straightening of cervical lordosis with reversal. IMPRESSION: There is no occlusion . Calcified and noncalcified plaque in the left proximal internal carotid artery with approximately 30% stenosis by NASCET criteria. There is calcified plaque in the proximal right internal carotid artery with approximately 10-20% stenosis by NASCET criteria. There is no significant stenosis in the vertebral arteries in the neck. Lab Data Lab results reviewed: Yes I reviewed the patient's lab results. Labs: Laboratory Tests Range/Units 11/21/22 11/21/22 11/21/22 18:46 18:46 19:02 WBC (4.4-10.8) 10^3/uL 8.94 RBC (4.36-5.78) 10^6/uL 4.16 L Hgb (13.5-17.5) g/dL 13.0 L Hct (40.0-50.0) % 39.3 L MCV (80-95) fL 95 MCH (27.0-33.0) pg 31.3 MCHC (32.0-36.0) % 33.1 RDW (11.8-14.1) % 14.4 H Plt Count (130-400) 10^3/uL 244 MPV (8.0-11.0) fL 9.6 Immature Gran % 0.3 Neutrophils % 73.7 Lymphocytes % 15.8 Monocytes % 9.2 Eosinophils % 0.4 Basophils % 0.6 Nucleated RBC % (0.0-0.3) % 0.0 Absolute Neutrophils (1.2-6.7) 10^3/uL 6.59 Absolute Lymphocytes (1.2-3.4) 10^3/uL 1.41 Absolute Monocytes (0.1-0.8) 10^3/uL 0.82 H Absolute Eosinophils (0.0-0.7) 10^3/uL 0.04 Absolute Basophils (0.0-0.2) 10^3/uL 0.05 Sodium (136-145) mmol/L 142 Potassium (3.5-5.1) mmol/L 3.3 L Chloride (98-107) mmol/L 104 Carbon Dioxide (21.0-32.0) mmol/L 25.0 Anion Gap (3-11) mmol/L 13.0 H BUN (7-18) mg/dL 24 H Creatinine (0.70-1.30) mg/dL 1.4 H Est GFR (CKD-EPI 2020) (mL/min/1.73m2) 51.13 Glucose (74-106) mg/dL 172 H Calcium (8.5-10.1) mg/dL 9.2 Total Bilirubin (0.2-1.0) mg/dL 0.3 AST (15-37) U/L 23 ALT (16-63) U/L 22 Alkaline Phosphatase (46-116) U/L 108 Troponin I (<or=60) ng/L < 50 Total Protein (6.4-8.2) g/dL 7.4 Albumin (3.4-5.0) g/dL 4.1 TSH (0.36-3.74) uIU/mL 5.47 H Free T4 (0.76-1.46) ng/dL 1.38 Urine Color (Yellow) Urine Clarity (Clear) Urine pH (5-8) Ur Specific [place] (1.005-1.025) Urine Protein (Negative) mg/dL Urine Ketones (Negative) mg/dL Urine Blood (Negative) Urine Nitrite (Negative) Urine Bilirubin (Negative) Urine Urobilinogen (Up to 0.2) mg/dL Ur Leukocyte Esterase (Negative) Urine RBC (0-2) HPF Urine WBC (0-5) HPF Ur Epithelial Cells (Negative) HPF Urine Crystals (Negative) HPF Urine Bacteria (Negative) HPF Urine Casts (Negative) LPF Urine Mucus (Negative) Urine Other (Negative) Ur Culture Indicated? Urine Glucose (Negative) mg/dL COVID-19 Source SARS-CoV-2 (PCR) (Negative) Range/Units 11/21/22 11/21/22 19:37 21:30 WBC (4.4-10.8) 10^3/uL RBC (4.36-5.78) 10^6/uL Hgb (13.5-17.5) g/dL Hct (40.0-50.0) % MCV (80-95) fL MCH (27.0-33.0) pg MCHC (32.0-36.0) % RDW (11.8-14.1) % Plt Count (130-400) 10^3/uL MPV (8.0-11.0) fL Immature Gran % Neutrophils % Lymphocytes % Monocytes % Eosinophils % Basophils % Nucleated RBC % (0.0-0.3) % Absolute Neutrophils (1.2-6.7) 10^3/uL Absolute Lymphocytes (1.2-3.4) 10^3/uL Absolute Monocytes (0.1-0.8) 10^3/uL Absolute Eosinophils (0.0-0.7) 10^3/uL Absolute Basophils (0.0-0.2) 10^3/uL Sodium (136-145) mmol/L Potassium (3.5-5.1) mmol/L Chloride (98-107) mmol/L Carbon Dioxide (21.0-32.0) mmol/L Anion Gap (3-11) mmol/L BUN (7-18) mg/dL Creatinine (0.70-1.30) mg/dL Est GFR (CKD-EPI 2020) (mL/min/1.73m2) Glucose (74-106) mg/dL Calcium (8.5-10.1) mg/dL Total Bilirubin (0.2-1.0) mg/dL AST (15-37) U/L ALT (16-63) U/L Alkaline Phosphatase (46-116) U/L Troponin I (<or=60) ng/L Total Protein (6.4-8.2) g/dL Albumin (3.4-5.0) g/dL TSH (0.36-3.74) uIU/mL Free T4 (0.76-1.46) ng/dL Urine Color (Yellow) Yellow Urine Clarity (Clear) Clear Urine pH (5-8) 7.0 Ur Specific [place] (1.005-1.025) 1.015 Urine Protein (Negative) mg/dL 30 H Urine Ketones (Negative) mg/dL 15 H Urine Blood (Negative) Large H Urine Nitrite (Negative) Negative Urine Bilirubin (Negative) Negative Urine Urobilinogen (Up to 0.2) mg/dL 0.2 Ur Leukocyte Esterase (Negative) Negative Urine RBC (0-2) HPF >50 H Urine WBC (0-5) HPF 3-5 Ur Epithelial Cells (Negative) HPF Rare Urine Crystals (Negative) HPF Negative Urine Bacteria (Negative) HPF Negative Urine Casts (Negative) LPF Negative Urine Mucus (Negative) Negative Urine Other (Negative) Negative Ur Culture Indicated? No Urine Glucose (Negative) mg/dL 100 H COVID-19 Source Nasal/Nares SARS-CoV-2 (PCR) (Negative) Negative ECG Data Attestation: I personally reviewed and interpreted this ECG (s) as follows: Interpretation: rate of 72, sinus, normal axis, prolonged NM internal, no stemi. Sign Out Sign Out Data: Sign Out Comment: Follow-up CT of the head and CTA of the head and neck. Consult neurology. Reassess patient for disposition. Last updated by Javier Amezquita MD at 11/21/22 20:14 Discharge Plan Disposition Patient Disposition: Admit to [facility] Condition: Stable Discharge Details Chief Complaint: CVA/TIA Clinical Impression: Vertigo, Photophobia Primary Care Provider: Allan Shaffer ED Provider: Maegan Geiger Home Meds and New Rx's Prescriptions: No Action amiodarone 200 mg tablet 200 mg PO DAILY potassium chloride 10 mEq capsule, extended release 10 meq PO DAILY potassium chloride 10 mEq capsule, extended release 10 meq PO DAILY amlodipine 5 MG tablet 5 mg PO DAILY acetaminophen [Tylenol] 325 MG tablet 650 mg PO PRN cholecalciferol (vitamin D3) [Vitamin D3] 25 mcg (1,000 unit) capsule 2,000 unit PO DAILY rabeprazole [AcipHex] 20 MG tablet,delayed release (DR/EC) 20 mg PO DAILY potassium chloride 10 mEq tablet extended release 10 meq PO 1XD levothyroxine [Synthroid] 75 mcg tablet 75 mcg PO 1XD levothyroxine [Synthroid] 75 mcg tablet 75 mcg PO 1XD Eliquis 5 mg Tablet 5 mg PO BID
--- NOTE | 2022-11-21 23:40 | HPE_ITS ---
Date of service: 11/21/22 Time of Service: 23:40 Assessment and Plan Assessment and plan (1) Vertigo: Start date: 11/21/22 Status: Acute Assessment and plan: This is a 77-year-old gentleman who is very active working at a local [employer] at least twice weekly and is concerned about getting back to work who presented to the ED with new onset of severe vertiginous symptoms though he does have a baseline history of vertigo. He is not chronically on treatment for vertigo. Because of his atrial fibrillation and persistent symptoms it is of concern that he may have had a posterior circulation CVA and requires continued monitoring with treatment with IV hydration and meclizine as well as MRI of the brain with PT/OT and speech therapy to be consulted. He presently appears to be in normal sinus rhythm and as stated is on Eliquis. Neurology had no further recommendations other than admission for MRI and rehabilitation. Antiplatelet therapy was not advised. Patient is not on a statin which will be initiated and not on a beta-venkata being treated with amiodarone for his atrial fibrillation. His vital signs are stable. He is a full code. (2) A-fib: Assessment and plan: Controlled rate on amiodarone presently with regular rhythm with continuation of the same. Patient is on Eliquis which will be continued the same with no suggestion of antiplatelet therapy by neurology for his possible posterior circulation TIA. Follow-up MRI. Follow-up echocardiogram with bubble study. (3) Hyperglycemia without ketosis: Start date: 11/21/22 Status: Acute Assessment and plan: Patient has no history of diabetes but does have elevated blood sugars upon admission. We will do glucometer measurements with coverage if needed. Check hemoglobin A1c. (4) Hyperlipidemia: Assessment and plan: Not on statin therapy with atorvastatin 40 mg daily to be initiated. Follow-up lipid profile. (5) Hypertension: Assessment and plan: Permissive hypertension with patient previously on amlodipine which will be held for now and reinitiated after 24 to 48 hours especially if CVA on MRI. (6) Hypothyroidism (acquired): Status: Chronic Assessment and plan: Continue supplement adjusting as needed. TSH is elevated but free T4 is normal. This can be seen with amiodarone. (7) CKD (chronic kidney disease) stage 3, GFR 30-59 ml/min: Status: Chronic Assessment and plan: This appears to be a chronic problem not on problem list. Monitor while hospitalized with IV hydration. Qualifiers: Chronic kidney disease stage 3 subtype: stage 3a (GFR 45-59) Qualified Code(s): N18.31 - Chronic kidney disease, stage 3a (8) Anemia: Status: Chronic Assessment and plan: This appears to be a chronic problem and probably associated with CKD. Monitor while hospitalized and consider checking for deficiencies as an outpatient with supplement if needed. Qualifiers: Anemia type: due to chronic kidney disease Chronic kidney disease stage 3 subtype: stage 3a (GFR 45-59) History of Present Illness History of Present Illness Chief Complaint: Acute onset vertiginous symptoms Narrative: This is a 77-year-old male patient with a history of paroxysmal atrial fibrillation on Eliquis who presented to the ED with photophobia which is not uncommon for him but worse than usual and acute onset vertiginous type symptoms with dizziness appears to have slightly garbled speech and difficulty finding words while he was driving around noon the day of presentation. He does have a history of chronic photophobia as mentioned and does not have a strong history of vertigo which was the type of dizziness he was endorsing at the time of presentation. He did respond to IV fluid resuscitation and meclizine and at the time he was seen by the second the ED physician he was less symptomatic but worse with any looking around or moving not being able to go home. He did have a CTA of the head and neck with CT stroke protocol of the head which were negative. There were no significant occlusions. As stated he is on Eliquis with atrial fibrillation. The patient was not seen by anyone until 4 hours after the onset of his symptoms and his did think that he had slightly garbled speech and stuttering at that time. He had no speech difficulty at the time I saw the patient. He does state that he is not a good water drinker and sometimes may be dehydrated and he does have a history of previous vertigo. He also has acquired thyroid disease on amiodarone and taking supplement with slightly elevated TSH but normal free T4 by lab upon presentation. The patient's vertigo persisted with any head movement as stated and though more com fortable he was not at baseline. His historical vertigo did not require treatment and was not as severe. The speech deficit was also new. Patient had neurology consultation in the ED who suggested admission for observation and MRI of the brain along with the usual stroke work-up with repeat echocardiogram and bubble study if not performed recently. The the patient's exam by the second ED physician was reassuring for possible peripheral vertigo rather than central. The patient's risk for central CVA of the posterior circulation is high requiring closer monitoring and further evaluation. He will continue IV hydration and treatment with meclizine. Patient is a full code. Review of Systems Narrative: 13 point review of systems otherwise unrevealing or stable. PFSH All Active Problems (Updated 11/22/22 @ 08:26 by Matias Cleary) Anemia (Chronic) CKD (chronic kidney disease) stage 3, GFR 30-59 ml/min (Chronic) Hyperglycemia without ketosis (Acute) Vertigo (Acute) Hypothyroidism (acquired) (Chronic) Elevated PSA (Acute) Primary osteoarthritis of both first carpometacarpal joints (Acute 09/18/15) Hydrocele (Acute) Medical History A-fib Calculus of left kidney (09/07/16) GERD (gastroesophageal reflux disease) Hydrocele in adult Hyperlipidemia Hypertension Left ureteral stone (09/07/16) Spinal arthritis Urinary tract infection Vitamin D deficiency Surgical History History of arthroscopy of left knee History of arthroscopy of right knee Hx of bilateral inguinal hernia repair Hx of colonoscopy Rotator Cuff Repair Right and Left Social History Smoking/Tobacco Use Status: Never Smoking risk assessment performed?: Yes Drug use: Never Substance use type: does not use Do you feel safe at home: Yes Do you feel safe in your relationship?: Yes Meds Allergies and Home Medications Allergies Allergy/AdvReac Type Severity Reaction Status Date / Time oxycodone Allergy Itching Unverified 11/21/22 18:35 propoxyphene Allergy Itching Unverified 11/21/22 18:35 [From Darvocet-N] sulfamethoxazole Allergy itchy- not Verified 11/21/22 18:35 [From Bactrim] feeling well trimethoprim [From Bactrim] Allergy itchy- not Verified 11/21/22 18:35 feeling well Home Medications Medication Instructions Recorded Confirmed Type amlodipine 5 mg tablet 5 mg PO DAILY 08/02/15 11/21/22 History rabeprazole 20 mg tablet,delayed 20 mg PO DAILY 12/29/16 11/21/22 History release (AcipHex) acetaminophen 325 mg tablet 650 mg PO PRN 01/31/18 11/21/22 History (Tylenol) apixaban 5 mg tablet (Eliquis) 5 mg PO BID 12/30/18 11/21/22 History amiodarone 200 mg tablet 200 mg PO DAILY 06/26/19 11/21/22 History cholecalciferol (vitamin D3) 25 2,000 unit PO DAILY 02/23/20 11/21/22 History mcg (1,000 unit) capsule (Vitamin D3) potassium chloride 10 mEq 10 meq PO DAILY 11/10/22 11/21/22 History capsule,extended release levothyroxine 75 mcg tablet 75 mcg PO 1XD 11/21/22 11/21/22 History (Synthroid) Exam Narrative Exam Narrative: General: Patient appears appropriate for age, very talkative, thin build and is alert and oriented x3. He is slightly hard of hearing. HEENT: Normocephalic, eyes with pupils equal and react to light symmetrically, extraocular movement intact with slight nystagmus to the far right gaze more than left gaze with fast beat to the left, sclera anicteric. Oropharynx with moist mucosa. Neck: Supple without JVD or palpable carotid thrills. Back: Normal posture without CVA tenderness. Lungs: Fair aeration and clear to auscultation and percussion. Heart: Regular rate and rhythm with distant heart sounds, no appreciable murmur or gallop. Abdomen: Scaphoid contour, soft and nontender to palpation with no palpable hepatosplenomegaly. Genitalia/rectal: Exam deferred. Extremity: Without clubbing, cyanosis or pitting edema. Cap refill good. Skin: Normal color with actinic changes over sun exposed areas, warm and dry. Neuro: Cranial nerves II through XII grossly intact with slight nystagmus to far right gaze as mentioned and patient having sensation of room spinning with movement of his head and eyes at times though improved. No focal motor defic its. No tremor. DTRs physiologic and symmetrical and no Babinski. See full neurological exam performed by ED physician. Psych: Normal affect and mood though slightly pressured speech and talkative. No abnormal thought processes. Remote and recent memory intact. Results Imaging Imaging Studies: Exam: CTA Head With Contrast, Arteriography Exam date and time: 11/21/2022 7:11 PM Age: 77 years old Clinical indication: Other: Vertigo broken speech double vision TECHNIQUE: Imaging protocol: Computed tomographic angiography of the head with contrast. Exam focused on the arteries. 3D rendering (Not supervised by radiologist): MIP and/or 3D reconstructed images were created by the technologist. Contrast material: 350; Contrast volume: 100 ml; Contrast route: INTRAVENOUS (IV);? COMPARISON: No relevant prior studies available. FINDINGS: ANTERIOR CIRCULATION: Right internal carotid artery: Intracranial segment is patent with no hemodynamically significant stenosis. Calcified plaque in the carotid siphon. No aneurysm. Right middle cerebral artery: No occlusion or significant stenosis. No aneurysm.? Right anterior cerebral artery: No occlusion or significant stenosis. No aneurysm.? Left internal carotid artery: Intracranial segment is patent with no hemodynamically significant stenosis. There is moderate calcified plaque in the carotid siphon. No aneurysm. Left middle cerebral artery: No occlusion or significant stenosis. No aneurysm. ? Left anterior cerebral artery: No occlusion or significant stenosis. No aneurysm.? POSTERIOR CIRCULATION: Right vertebral artery: Heavy calcified plaque in the left intradural vertebral artery in the V4 segment without hemodynamically significant stenosis. There might be mild to moderate focal stenosis (369 series 12). No aneurysm.? Left vertebral artery is dominant. Left vertebral artery: Heavy focal calcified plaque in the intradural right vertebral artery in the V4 segment with probable moderate stenosis (63 series 11, 371 series 12). Basilar artery: No occlusion or significant stenosis. No aneurysm. Right posterior cerebral artery: No occlusion or significant stenosis. No aneurysm. P1 segment of the right posterior cerebral artery hypoplastic with dominant contribution from the posterior communicating artery, a normal variation. Left posterior cerebral artery: No occlusion or significant stenosis. No aneurysm.? Brain: No definite mass, mass effect, or midline shift. Cerebral ventricles: No ventriculomegaly. Bones/joints: No acute fracture. Soft tissues: Unremarkable. IMPRESSION: 1. No large vessel high-grade stenosis or occlusion. 2. Calcified plaque in the bilateral intradural vertebral arteries with [id number] right vertebral artery stenosis and mild stenosis in the left vertebral artery. PROCEDURE INFORMATION: Exam: CTA Neck With Contrast Exam date and time: 11/21/2022 7:11 PM Age: 77 years old Clinical indication: Other: Vertigo broken speech double vision TECHNIQUE: Imaging protocol: Computed tomographic angiography of the neck with contrast. 3D rendering (Not supervised by radiologist): MIP and/or 3D reconstructed images were created by the technologist. Contrast material: 350; Contrast volume: 100 ml; Contrast route: INTRAVENOUS (IV);? COMPARISON: CR STERNOCLAVICULAR JOINT/S 07/28/2022 12:45 PM FINDINGS: Right common carotid artery: No stenosis. No dissection or occlusion. Right internal carotid artery: Calcified and noncalcified plaque at the carotid bifurcation and the proximal internal carotid artery with 20% stenosis by NASCET criteria. Right external carotid artery: No occlusion or stenosis of the origin.? Left common carotid artery: No stenosis. No dissection or occlusion. Left internal carotid artery: Calcified and noncalcified plaque in the carotid bifurcation and proximal internal carotid artery with 30% stenosis by NASCET criteria. Left external carotid artery: No occlusion or stenosis of the origin.? Right vertebral artery: No stenosis. No dissection or occlusion. Left vertebral artery: No stenosis. No dissection or occlusion. Thyroid: There is a 8 mm high-density nodule in the right lobe of the thyroid gland. Soft tissues: Normal. No significant soft tissue swelling. Bones/joints: No acute fracture. Moderate to marked spondylosis and disc degenerative changes in the cervical spine. There is straightening of cervical lordosis with reversal. IMPRESSION: There is no occlusion . Calcified and noncalcified plaque in the left proximal internal carotid artery with approximately 30% stenosis by NASCET criteria. There is calcified plaque in the proximal right internal carotid artery with approximately 10-20% stenosis by NASCET criteria. There is no significant stenosis in the vertebral arteries in the neck. Labs 11/21/22 18:46 11/21/22 18:46 Labs: Laboratory Results - last 24 hr 11/21/22 11/21/22 11/21/22 18:46 18:46 19:02 WBC 8.94 RBC 4.16 L Hgb 13.0 L Hct 39.3 L MCV 95 MCH 31.3 MCHC 33.1 RDW 14.4 H Plt Count 244 MPV 9.6 Immature Gran % 0.3 Neutrophils % 73.7 Lymphocytes % 15.8 Monocytes % 9.2 Eosinophils % 0.4 Basophils % 0.6 Nucleated RBC % 0.0 Absolute Neutrophils 6.59 Absolute Lymphocytes 1.41 Absolute Monocytes 0.82 H Absolute Eosinophils 0.04 Absolute Basophils 0.05 Sodium 142 Potassium 3.3 L Chloride 104 Carbon Dioxide 25.0 Anion Gap 13.0 H BUN 24 H Creatinine 1.4 H Est GFR (CKD-EPI 2020) 51.13 Glucose 172 H Calcium 9.2 Total Bilirubin 0.3 AST 23 ALT 22 Alkaline Phosphatase 108 Troponin I < 50 Total Protein 7.4 Albumin 4.1 TSH 5.47 H Free T4 1.38 Urine Color Urine Clarity Urine pH Ur Specific [place] Urine Protein Urine Ketones Urine Blood Urine Nitrite Urine Bilirubin Urine Urobilinogen Ur Leukocyte Esterase Urine RBC Urine WBC Ur Epithelial Cells Urine Crystals Urine Bacteria Urine Casts Urine Mucus Urine Other Ur Culture Indicated? Urine Glucose COVID-19 Source SARS-CoV-2 (PCR) 11/21/22 11/21/22 19:37 21:30 WBC RBC Hgb Hct MCV MCH MCHC RDW Plt Count MPV Immature Gran % Neutrophils % Lymphocytes % Monocytes % Eosinophils % Basophils % Nucleated RBC % Absolute Neutrophils Absolute Lymphocytes Absolute Monocytes Absolute Eosinophils Absolute Basophils Sodium Potassium Chloride Carbon Dioxide Anion Gap BUN Creatinine Est GFR (CKD-EPI 2020) Glucose Calcium Total Bilirubin AST ALT Alkaline Phosphatase Troponin I Total Protein Albumin TSH Free T4 Urine Color Yellow Urine Clarity Clear Urine pH 7.0 Ur Specific [place] 1.015 Urine Protein 30 H Urine Ketones 15 H Urine Blood Large H Urine Nitrite Negative Urine Bilirubin Negative Urine Urobilinogen 0.2 Ur Leukocyte Esterase Negative Urine RBC >50 H Urine WBC 3-5 Ur Epithelial Cells Rare Urine Crystals Negative Urine Bacteria Negative Urine Casts Negative Urine Mucus Negative Urine Other Negative Ur Culture Indicated? No Urine Glucose 100 H COVID-19 Source Nasal/Nares SARS-CoV-2 (PCR) Negative Last Vital Signs Temp 36.6 C 11/21/22 18:35 Pulse 63 11/21/22 22:31 Resp 13 11/21/22 22:40 BP 120/67 11/21/22 22:31 Pulse Ox 98 11/21/22 18:35 Time Spent Time spent with Patient: >75 minutes Time was spent: preparing to see the patient(eg.review tests), obtaining and/or reviewing separately otained hiistory, ordering medications,tests, procedures, referring, communicating with other health director of managed care, indepentently int erpreting results and care coordination
[2022-11-22] VITALS (23 sets, daily range): BP systolic 120–152; BP diastolic 66–84; PULSE 53–76; RESP 11–18; TEMP 36.1–37.2; O2SAT 74–97
[2022-11-22] MEDS: diazePAM 5 MG TAB PO (00:15)
[2022-11-22] MEDS: Potassium Chloride 20 MEQ TABCR PO (03:27)
[2022-11-22] MEDS: Levothyroxine 75 MCG TAB PO (06:26)
[2022-11-22 06:38] LABS: HCT 37.7 % (40.0-50.0); HGB 12.6 g/dL (13.5-17.5); MCH 31.3 pg (27.0-33.0); MCHC 33.4 % (32.0-36.0); MCV 94 fL (80-95); MPV 9.9 fL (8.0-11.0); Platelet Count 204 10^3/uL (130-400); RBC 4.02 10^6/uL (4.36-5.78); RDW 14.4 % (11.8-14.1); RDW-SD 50.1 fL; WBC 7.35 10^3/uL (4.4-10.8)
[2022-11-22 06:54] LABS: ALT 17 U/L (16-63); AST 18 U/L (15-37); Albumin 3.6 g/dL (3.4-5.0); Alkaline Phosphatase 101 U/L (46-116); BUN 18 mg/dL (7-18); Bilirubin, Total 0.4 mg/dL (0.2-1.0); Calcium 9.2 mg/dL (8.5-10.1); Calculated LDL 127 mg/dL (<100); Chloride 106 mmol/L (98-107); Cholesterol 199 mg/dL (<200); Estimated GFR 76.56 (mL/min/1.73m2); Glucose 96 mg/dL (74-106); HDL Cholesterol 61 mg/dL (40-60); Magnesium 1.9 mg/dL (1.8-2.4); Sodium 142 mmol/L (136-145); Total Protein 6.8 g/dL (6.4-8.2); Triglyceride 59 mg/dL (<150)
[2022-11-22 07:07] LABS: Hemoglobin A1C 5.8 % (<5.7)
[2022-11-22] MEDS: Potassium Chloride 10 MEQ CAPCR PO (08:32)
[2022-11-22] MEDS: Meclizine 12.5 MG TAB PO ×3 (08:32→20:10)
[2022-11-22] MEDS: Apixaban 5 MG TAB PO ×2 (08:32→20:10)
[2022-11-22] MEDS: Amiodarone 200 MG TAB PO (08:32)
[2022-11-22] MEDS: Cholecalciferol (Vitamin D3) 1,000 UNIT TAB 2000 UNITS PO (08:32)
--- NOTE | 2022-11-22 11:07 | PT.INIE ---
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 He was admitted because of his atrial fibrillation and persistent symptoms it is of concern that he may have had a posterior circulation CVA. CTscan performed and scheduled for MRI [place]. He states that he has double vision at baseline and does not feel like he did yesterday. He states that sometimes he feels unsteady but feels this is due to the double vision. He states he has no dizziness, ringing in the ears. He has tried prism glasses in the past they make things worse. PMHX: []All Active Problems?(Updated 11/22/22 @ 08:26 by Matias Cleary) Anemia (Chronic) CKD (chronic kidney disease) stage 3, GFR 30-59 ml/min (Chronic) Hyperglycemia without ketosis (Acute) Vertigo (Acute) Hypothyroidism (acquired) (Chronic) Elevated PSA (Acute) Primary osteoarthritis of both first carpometacarpal joints (Acute 09/18/15) Hydrocele (Acute) Medical History? A-fib Calculus of left kidney (09/07/16) GERD (gastroesophageal reflux disease) Hydrocele in adult Hyperlipidemia Hypertension Left ureteral stone (09/07/16) Spinal arthritis Urinary tract infection Vitamin D deficiency Surgical History? History of arthroscopy of left knee History of arthroscopy of right knee Hx of bilateral inguinal hernia repair Hx of colonoscopy Rotator Cuff Repair Right and Left Social History/Home Situation: Works at [employer] 2 days /week, Current Functional Limitations: sometimes states unsteady gait and probably should use a walking stick on uneven surfaces, uses a ski pole on ice Equipment Owned/DME: none Subjective: What happened yesterday was not my typical experiance with episodes of vertigo. This is confirmed by his . She states that he typically does not have slurred speech which she does not have today although has occasional episodes of finding words which she states this has been gradually happening but not like yesterday. He is anxious to get out of here he feels like he is at his baseline and this is confirmed by his Objective: General Observation: Patient is pleasant having full conversation with myself and his about yesterday's events. Mental Status: AO x3 Pain: No pain Vital Signs: HR 61, O2 96 ROM: Right Upper Extremity: WFL Left Upper Extremity: WFL Right Lower Extremity: WFL Left Lower Extremity: WFL Strength: Right Upper Extremity: WFL Left Upper Extremity: WFL except for left RTC which patient states at some point in time he will need to get fixed as it is torn thus shoulder flexion 3/5 and abduction 2-/5 and external rotation 2-/5 Right Lower Extremity: WFL Left Lower Extremity: WFL Sensation: Denies distal numbness and tingling intact to light touch Bed Mobility/Transfers: Independent with all bed mobilities, sit to stand although given verbal cueing for using upper extremity for safety and is able to carry through and repeated sit to stands Gait: Ambulates with supervision approximately 20 feet around the treatment room changing directions although with double vision has a little unsteadiness but knows this and go slower has a wider base of support. It will be recommended that he utilize assistive device of walking stick or cane in the future when he gets home based on balance assessment.. Balance: Static Sitting: Good Dynamic Sitting: Good Static Standing: Fair with wide base of support NB OS is poor, SLS right less than 3 seconds left less than 3 seconds Dynamic Standing: Fair able to march in place Special Tests: He states that they did try to do [place] in the ED he states that it did not make any change in his baseline. Vertigo test; head thrust negative although with double vision has slight difficulty coming back from right to center. Smooth pursuits no nystagmus noted horizontal although with vertical increased double vision and sense of dizziness which stops as soon as he stops focusing on the finger. Mobility Limitations Standardized Measure [facility] AM-PAC 6 clicks Basic Mobility Inpatient Short Form: Raw Score: 24 standardized Score: 61.14 CMS Score: 0% Informed Consent/Education: Patient instructed in purpose of PT consult and plan of care. Assessment: Patient is a 77 year old male referred to physical therapy services with the diagnosis of CVA/vertigo. Patient presents with clinical signs and symptoms consistent with chronic vertigo secondary to double vision, unsteady in standing, as demonstrated by the following impairment level findings: Decreased balance especially with narrow base of support or single-leg standing Decreased strength of left upper extremity likely secondary to left rotator cuff tear as distal strength is within normal limits Unsteady balance It would be recommended if medically cleared for patient to seek outpatient physical therapy services for habituation exercises regarding vertigo and evaluation of balance and unsteady gait. In the hospital setting I do not believe that skilled physical therapy is necessary at this time. . Impairments are contributing to the following functional limitations: AMPAC score. Patient is assessed as a Low [id number] complexity based on the following: History: as outlined Examination: As outlined Presentation: Baseline low complexity Decision Making: Low Plan of Care/Treatment Plan: No skilled physical therapy services are recommended at this time however I do believe that when he is medically cleared that he should seek outpatient physical therapy services for evaluation of balance and unsteady gait as well as evaluation of vertigo most likely for habituation exercises. DISCHARGE RECOMMENDATIONS: X outpatient physical therapy services for evaluation of balance and unsteady gait as well as evaluation of vertigo most likely for habituation exercises. [] Home with no services [] [] Home with services [specify] [X] Home with outpatient PT [] [] SNF for continued rehabilitation [] [] [facility] [] [] SNF versus LTC based on ability to participate and progress [] TREATMENT CODE/TIME:65639/30'
--- NOTE | 2022-11-22 11:27 | PGE_ITS ---
Date of Service Date of service: 11/22/22 Time of Service: 11:27 Assessment and Plan Assessment and plan (1) Vertigo: Status: Acute Assessment and plan: He is not chronically on treatment for vertigo But reports he has had the symptoms for 3 years and is followed by Dr Uribe [facility]. Because of his atrial fibrillation and persistent symptoms it is of concern that he may have had a posterior circulation CVA, MRI pending for Wednesday. continue monitoring, stop IV hydration continue meclizine PT/OT and speech therapy consulted. Neurology had no further recommendations other than admission for MRI and rehabilitation. Antiplatelet therapy was not advised. Patient is not on a statin which will be initiated and not on a beta- venkata being treated with amiodarone for his atrial fibrillation. His vital signs are stable. He is a full code. (2) A-fib: Assessment and plan: remains in normal sinus rhythm and on Eliquis. Continue amiodarone echocardiogram with bubble study scheduled for Wednesday. (3) Hyperglycemia without ketosis: Status: Acute Assessment and plan: Patient has no history of diabetes but does have elevated blood sugars upon admission. 5.8 hemoglobin A1c. (4) Hyperlipidemia: Assessment and plan: Not on statin therapy with atorvastatin 40 mg daily to be initiated. (5) Hypertension: Assessment and plan: Permissive hypertension with patient previously on amlodipine which will be held for now and reinitiated after 24 to 48 hours especially if CVA on MRI. (6) Hypothyroidism (acquired): Status: Chronic Assessment and plan: Continue supplement adjusting as needed. TSH is elevated at 5.47 but free T4 is normal. This can be seen with amiodarone. (7) CKD (chronic kidney disease) stage 3, GFR 30-59 ml/min: Status: Chronic Assessment and plan: This appears to be a chronic problem not on problem list. improved overnight with hydration. monitor. Qualifiers: Chronic kidney disease stage 3 subtype: stage 3a (GFR 45-59) Qualified Code(s): N18.31 - Chronic kidney disease, stage 3a (8) Anemia: Status: Chronic Assessment and plan: This appears to be a chronic problem and probably associated with CKD. Monitor while hospitalized and consider checking for deficiencies as an outpatient with supplement if needed. discussed with DR Porter Qualifiers: Anemia type: due to chronic kidney disease Chronic kidney disease stage 3 subtype: stage 3a (GFR 45-59) Subjective Subjective Patient reports: no new complaints, feels better (but still has some positional vertigo), tolerating liquids well, tolerating a regular diet and afebrile; denies shortness of breath Exam Const General: cooperative, healthy appearing and comfortable Nutritional Appearance: average body habitus Orientation: alert, awake and oriented x3 HENMT Head: normal to inspection, normocephalic and atraumatic Mouth: oral mucosae normal Eyes General: appearance normal, both eyes and all related structures EOM: No nystagmus Chest Chest: normal inspection of the chest Resp Effort & Inspection: normal respiratory effort Auscultation: clear to auscultation bilaterally Cardio Rate: regular rate Rhythm: regular rhythm GI Inspection: normal to inspection Palpation: soft and nontender Skin General skin exam: no rashes or lesions noted Neuro General: patient alert, patient awake, patient oriented x3, oriented, no focal motor deficits and CN's II-XI intact bilaterally Cranial Nerves: no nystagmus Cognition: normal cognition Speech: speech normal Gait: normal gait Motor: muscle tone normal throughout Sensory Exam: no sensory deficits noted Extrem General: normal to inspection, full ROM and no pedal edema Objective Last Vital Signs Temp 36.1 C L 11/22/22 11:09 Pulse 61 11/22/22 11:09 Resp 16 11/22/22 11:09 BP 142/84 H 11/22/22 11:09 Pulse Ox 95 11/22/22 11:09 Laboratory Results - last 24 hr 11/21/22 11/21/22 11/21/22 18:46 18:46 19:02 WBC 8.94 RBC 4.16 L Hgb 13.0 L Hct 39.3 L MCV 95 MCH 31.3 MCHC 33.1 RDW 14.4 H Plt Count 244 MPV 9.6 Immature Gran % 0.3 Neutrophils % 73.7 Lymphocytes % 15.8 Monocytes % 9.2 Eosinophils % 0.4 Basophils % 0.6 Nucleated RBC % 0.0 Absolute Neutrophils 6.59 Absolute Lymphocytes 1.41 Absolute Monocytes 0.82 H Absolute Eosinophils 0.04 Absolute Basophils 0.05 Sodium 142 Potassium 3.3 L Chloride 104 Carbon Dioxide 25.0 Anion Gap 13.0 H BUN 24 H Creatinine 1.4 H Est GFR (CKD-EPI 2020) 51.13 Glucose 172 H Hemoglobin A1c Calcium 9.2 Magnesium Total Bilirubin 0.3 AST 23 ALT 22 Alkaline Phosphatase 108 Troponin I < 50 Total Protein 7.4 Albumin 4.1 Triglycerides Total Cholesterol LDL Cholesterol, Calc HDL Cholesterol TSH 5.47 H Free T4 1.38 Urine Color Urine Clarity Urine pH Ur Specific [place] Urine Protein Urine Ketones Urine Blood Urine Nitrite Urine Bilirubin Urine Urobilinogen Ur Leukocyte Esterase Urine RBC Urine WBC Ur Epithelial Cells Urine Crystals Urine Bacteria Urine Casts Urine Mucus Urine Other Ur Culture Indicated? Urine Glucose COVID-19 Source SARS-CoV-2 (PCR) 11/21/22 11/21/22 11/22/22 19:37 21:30 00:07 WBC RBC Hgb Hct MCV MCH MCHC RDW Plt Count MPV Immature Gran % Neutrophils % Lymphocytes % Monocytes % Eosinophils % Basophils % Nucleated RBC % Absolute Neutrophils Absolute Lymphocytes Absolute Monocytes Absolute Eosinophils Absolute Basophils Sodium Potassium Chloride Carbon Dioxide Anion Gap BUN Creatinine Est GFR (CKD-EPI 2020) Glucose Hemoglobin A1c Calcium Magnesium Cancelled Total Bilirubin AST ALT Alkaline Phosphatase Troponin I Total Protein Albumin Triglycerides Total Cholesterol LDL Cholesterol, Calc HDL Cholesterol TSH Free T4 Urine Color Yellow Urine Clarity Clear Urine pH 7.0 Ur Specific [place] 1.015 Urine Protein 30 H Urine Ketones 15 H Urine Blood Large H Urine Nitrite Negative Urine Bilirubin Negative Urine Urobilinogen 0.2 Ur Leukocyte Esterase Negative Urine RBC >50 H Urine WBC 3-5 Ur Epithelial Cells Rare Urine Crystals Negative Urine Bacteria Negative Urine Casts Negative Urine Mucus Negative Urine Other Negative Ur Culture Indicated? No Urine Glucose 100 H COVID-19 Source Nasal/Nares SARS-CoV-2 (PCR) Negative 11/22/22 11/22/22 11/22/22 06:00 06:00 06:00 WBC 7.35 RBC 4.02 L Hgb 12.6 L Hct 37.7 L MCV 94 MCH 31.3 MCHC 33.4 RDW 14.4 H Plt Count 204 MPV 9.9 Immature Gran % Neutrophils % Lymphocytes % Monocytes % Eosinophils % Basophils % Nucleated RBC % Absolute Neutrophils Absolute Lymphocytes Absolute Monocytes Absolute Eosinophils Absolute Basophils Sodium 142 Potassium 4.0 Chloride 106 Carbon Dioxide 27.0 Anion Gap 9.0 BUN 18 Creatinine 1.0 Est GFR (CKD-EPI 2020) 76.56 Glucose 96 Hemoglobin A1c 5.8 H Calcium 9.2 Magnesium 1.9 Total Bilirubin 0.4 AST 18 ALT 17 Alkaline Phosphatase 101 Troponin I Total Protein 6.8 Albumin 3.6 Triglycerides 59 Total Cholesterol 199 LDL Cholesterol, Calc 127 H HDL Cholesterol 61 TSH Free T4 Urine Color Urine Clarity Urine pH Ur Specific [place] Urine Protein Urine Ketones Urine Blood Urine Nitrite Urine Bilirubin Urine Urobilinogen Ur Leukocyte Esterase Urine RBC Urine WBC Ur Epithelial Cells Urine Crystals Urine Bacteria Urine Casts Urine Mucus Urine Other Ur Culture Indicated? Urine Glucose COVID-19 Source SARS-CoV-2 (PCR) PAWSS Have you Been Recently Intoxicated or Drunk Within the Last 30 days?: No Have you Ever Experienced Previous Episodes of Alcohol Withdrawal?: No Have you ever Experienced Withdrawal Seizures?: No Have you ever Experienced Delirium Tremens(DT)s?: No Have you ever undergone Alcohol Rehabilitation Treatment (i.e, inpt ot outpatient treatment programs)?: No Have you ever Experienced Blackouts?: No Have you ever Combined Alcohol with other Downers within the last 90 days?: No Have you ever Combined Alcohol with any other Substance of Abuse during the last 90 days?: No Positive Blood Alcohol level on Presentation? [PCS.BAL]: No Evidence of Increased Autonomic Activity (i.e. HR>120, tremor, sweating, agitation, nausea)?: No Result: 0 Time Spent with Patient Time Spent with Patient: 35-49 minutes Time was spent: preparing to see the patient(eg.review tests), obtaining and/or reviewing separately otained hiistory, ordering medications,tests, procedures, indepentently interpreting results and counseling the patient
--- NOTE | 2022-11-22 13:10 | INITIAL_ITS ---
- If Service Date Differs Date of service: 11/22/22 Time of Service: 13:10 Care Management Initial Assess REASON FOR HOSPITALIZATION:: TIA with vertigo PAST MEDICAL HISTORY/PAST SURGICAL HISTORY:: All Active Problems. Anemia (Chronic). CKD (chronic kidney disease) stage 3, GFR 30-59 ml/min (Chronic). Hyperglycemia without ketosis (Acute). Vertigo (Acute). Hypothyroidism (acquired) (Chronic). Elevated PSA (Acute). Primary osteoarthritis of both fir st carpometacarpal joints (Acute 09/18/15). Hydrocele (Acute). Medical History. A-fib. Calculus of left kidney (09/07/16). GERD (gastroesophageal reflux disease). Hydrocele in adult. Hyperlipidemia. Hypertension. Left ureteral stone (09/07/16). Spinal arthritis. Urinary tract infection. Vitamin D deficiency. Surgical History. History of arthroscopy of left knee. History of arthroscopy of right knee. Hx of bilateral inguinal hernia repair. Hx of colonoscopy. Rotator Cuff Repair. Right and Left PREVIOUS FUNCTIONAL STATUS/SOCIAL/FAMILY SUPPORTS:: Luis lives in [facility] with his , Noemi, and their dog, a rigoberto, who he refers to as his special four legged child. He works at a local [employer]. Together they have five adult children, six grandchildren, and three great grand children. His family is very supportive. He is independent at baseline. CURRENT FUNCTIONAL STATUS:: Luis was sitting up in bed when CM met with him. He stated that he is doing much better today and is hoping to return home soon. ANNEMARIE reviewed his plan, and he stated that he is comfortable waiting until tomorrow for his MRI, echo, Neuro consult and PT, OT, and Speech therapies. A few of his children visited while ANNEMARIE was in the room, and CM supported Luis in filling out a new HIPAA form in order for his children to receive information. ANNEMARIE will continue to follow. ADVANCE DIRECTIVES:: Not on file. Has patient been provided with info about the portal/API?: Yes Did the patient sign up for the portal?: No CODE STATUS:: Full Code INSURANCE COVERAGE / FINANCIAL ISSUES:: [facility]/ [facility] CURRENT HOME/COMMUNITY SERVICES/EQUIPMENT:: None. PRIMARY CARE PHYSICIAN:: Allan Shaffer POTENTIAL DISCHARGE NEEDS:: Evaluations for further needs, follow up appointments. PATIENT/FAMILY EDUCATION NEEDS:: Review discharge instructions and limitations, discussion of self care needs including ask me three. ANTICIPATED BARRIERS TO DISCHARGE:: None. TRANSPORTATION:: Via private vehicle by his . PLAN:: Anticipate Luis will return home once medically cleared. His will drive him home via private vehicle. He will follow up with his PCP and discharge plan of care. CM will continue to follow.
[2022-11-22] MEDS: Normal Saline Flush 10 ML SYR IVP (20:10)
[2022-11-23 03:12] VITALS: PULSE 60
[2022-11-23 04:04] VITALS: BP 110/60; PULSE 62; RESP 15; TEMP 36.8; O2SAT 95
[2022-11-23] MEDS: Levothyroxine 75 MCG TAB PO (06:36)
[2022-11-23 07:29] VITALS: BP 142/73; PULSE 67; RESP 17; TEMP 36.5; O2SAT 95
[2022-11-23] MEDS: Potassium Chloride 10 MEQ CAPCR PO (07:52)
[2022-11-23] MEDS: Cholecalciferol (Vitamin D3) 1,000 UNIT TAB 2000 UNITS PO (07:52)
[2022-11-23] MEDS: Amiodarone 200 MG TAB PO (07:52)
[2022-11-23] MEDS: Apixaban 5 MG TAB PO (07:52)
[2022-11-23] MEDS: Meclizine 12.5 MG TAB PO ×2 (07:53→13:59)
--- NOTE | 2022-11-23 08:00 | DI.US_ITS ---
APPROVED REPORT EXAM: Comprehensive 2D, Doppler, and color-flow Echocardiogram Patient Location: In-Patient Room/Bed: [address] Captain: Monica Lara RDCS (AE) Indications: TIA with vertigo, PAF Echo Enhancing Agent Indication: Rule out Shunt Agent(s) / Amount(s) Used: Agitated Saline 30.0 cc Comments: Contrast study was performed with 3 IV injections of 10ccs of agitated normal saline, at re st, with cough and post valsalva maneuver. Patient was unable to cooperate fully with maneuvers. Negative contrast study for shunt flow. Other Information Study Quality: Adequate Conclusion Normal left ventricular wall thickness and chamber size. Estimated ejection fraction is 60%. Wall m otion is normal Right ventricle appears grossly normal in size and function Both atria are normal in size The aortic valve is mildly sclerotic and trileaflet with mild regurgitation Normal mitral valve with mild regurgitation Normal tricuspid valve with mild regurgitation Mildly dilated ascending aorta No evidence of intracardiac shunting with injection of agitated saline Wall motion Left Ventricle The left ventricle is normal size. The left ventricular systolic function is normal. The left ventric ular ejection fraction is within the normal range. There is normal left ventricular wall thickness. T here is normal LV segmental wall motion. There is no ventricular septal defect visualized. LVEF is 60 %. Right Ventricle Right ventricle is grossly normal in size. Right ventricular systolic function is grossly normal. Atria The left atrium size is normal. The right atrium size is normal. The interatrial septum is intact wit h no evidence for an atrial septal defect. Saline bubble contrast intravenous injection does not demo nstrate PFO. Aortic Valve The Aortic valve is mildly sclerotic. Aortic valve is trileaflet. There is no aortic valvular stenosi s. Mild aortic regurgitation. Mitral Valve The mitral valve is normal in structure. No evidence of mitral valve stenosis. Mild mitral regurgitat ion. Tricuspid Valve The tricuspid valve is normal in structure. There is no tricuspid valve stenosis. Mild tricuspid regu rgitation. Pulmonic Valve The pulmonary valve is normal in structure. There is no pulmonic valvular stenosis. Mild pulmonic reg urgitation. Great Vessels The aortic root is normal in size. The ascending aorta is mildly dilated. Aortic arch is not well vis ualized. The IVC was not visualized. Pericardium Technically limited subcostal imaging 2D Dimensions IVSD d PLAX 1.12 cm M: 0.6-1.2 LV Vol A2C d MOD 73.5 mL LVPW d PLAX 1.15 cm M: 0.6 - 1.2 LV Vol A4C d MOD 116.0 mL LVID d PLAX 5.47 cm M: 4.2 - 5.8 LA vol/ BSA A2C s A-L 34.6 mL/m2 LVDs 3.75 cm M: 2.5 - 4.0 LA vol/ BSA A4C s A-L 30.5 mL/m2 Ao Root d 3.38 cm M: 3.1 - 3.7 LA Vol/ BSA Biplane s A-L 34.0 mL/m2 RA Area A4C 10.60 cm2 LA Area A4C s MOD 20.84 cm2 RA Vol/ BSA A4C s A-L 10.7 mL/m2 LA Area A2C s MOD 21.17 cm2 Ao Asc Diam d 3.52 cm M: 2.6 - 3.4 LV EF A4C MOD 60.8 % LV EF Teichholz 58.7 % LV EF A2C MOD 59.2 % LVEF (Hunter's) 60.59 % M: 52 - 72 LV EF Biplane MOD 60.6 % LV Volume 70.54 mL M: 62 - 150 SV 56.92 mL LV Volume Index 35.44 mL/m2 M: 34 - 74 SV Index 28.56 mL/m2 LV Vol Biplane MOD 93.9 mL FS 31.35 % M-Mode TAPSE 2.92 cm (M/F) >1.7 LV Diastology MV E' medial 0.054 (>0.07 m/s) E/A Ratio 0.5 LV E/e MED 9.90 (<14) MV E Vmax 0.53 (0.4-1.3 m/s) MV E' lateral 0.060 (>0.1 m/s) MV A Vmax 1.00 (0.4-1.3 m/s) LV E/e LAT 8.90 (<14) MV E/A Ratio 0.51 MV E/E' medial 9.94 MV E/E' lateral 8.93 Aortic Valve LVOT Area 3.51 cm2 AoV Area Vmax 2.39 cm2 LVOT Vmax 1.02 m/s AoV Area/ BSA (Vmax) 1.20 cm2/m2 LVOT Mean Juan Jose. 0.66 m/s MILTON Mean Juan Jose. 2.30 cm2 LVOT Peak Grad 4.2 mmHg MILTON Mean Juan Jose. Index 1.16 cm2/m2 LVOT Mean Grad 2.0 mmHg AR DT 2570 msec LVOT VTI 0.235 m AR PHT 745 msec LVOT Diam s 2.10 cm AoV Vmax 1.50 m/s Velocity Ratio 0.68 AoV Mean Juan Jose. 1.00 m/s AoV Peak Grad 9.0 mmHg LVOT SV 82.58 mL AoV Mean Grad 4.7 mmHg AoV VTI 0.274 m AoV Area VTI 3.02 cm2 AoV Area/ BSA (VTI) 1.51 cm/m2 Mitral Valve MV DT 431 (160-240 msec) MV PHT 125 msec MV Area PHT 1.76 cm2 MV VTI 0.367 m MV VTI Annulus 0.396 m MV Area VTI 2.44 (4.0-6.0 cm2) Pulmonary Valve PV Vmax 1.21 (0.5-1.5 m/s) RVOT Peak Gr. 1.49 mmHg PV Peak Grad 5.8 mmHg RVOT Mean Gr. 0.85 mmHg PV Mean Grad 2.9 mmHg RVOT VTI 0.154 m PV VTI 0.229 m RVOT Vmax 0.61 m/s Tricuspid Valve TR Peak Grad 24.8 mmHg TR Vmax 2.49 m/s RA Pressure 3.00 mmHg RVSP (TR) 27.9 mmHg
--- NOTE | 2022-11-23 08:00 | DI.MRI_ITS ---
Exam(s) MR BRAIN WO EXAM: MR BRAIN WO CLINICAL HISTORY: TIA with vertigo TECHNIQUE: Multiplanar multisequence MRI of the brain was performed. COMPARISON: CT CT BRAIN NECK CTA from 11/21/2022 CONTRAST MATERIAL: Noncontrast FINDINGS: VENTRICLES AND EXTRA AXIAL SPACES: Normal in size and morphology for the patient's age. MIDLINE SHIFT: None. CEREBRAL PARENCHYMA: No focus of restricted diffusion to suggest acute infarct. No space-occupying le grisel identified. Moderate atrophy. Scattered high T2/signal foci in the white matter consistent wit h sequela of chronic microvascular ischemia. HEMORRHAGE: None. BRAINSTEM/CEREBELLUM: Normal. VISUALIZED PARANASAL SINUSES/MASTOIDS:Clear. [place]: Normal flow void. PITUITARY GLAND: Unremarkable. ORBITS: Unremarkable. IMPRESSION: Atrophy and white matter changes. No acute abnormality DATA REPOSITORY:
--- NOTE | 2022-11-23 09:31 | OT.INIE ---
Occupational Therapy Notes Inpatient Occupational Therapy Evaluation Date: 11/23/22 Referring Doctor:Matias Cleary MD OT Orders: Non Urgent Precautions: Fall, standard, full PATIENT PROFILE/ADMITTING DIAGNOSIS: Pt is a 77 year old male who presented to the ED on 11/21/22 with history of intermittent vertigo, hypertension, hypothyroidism, atrial fibrillation, here with chief complaint of vertigo.?He presented with his who noted that the time that pt was having difficulty with his speech prior to arrival and pt notes that he has double vision at this time of his arrival. He was admitted for observation and further diagnostic testing for CVA/TIA with MRI pending for today. Past Medical History: All Active Problems?(Updated 11/22/22 @ 08:26 by Matias Cleary) Anemia (Chronic) CKD (chronic kidney disease) stage 3, GFR 30-59 ml/min (Chronic) Hyperglycemia without ketosis (Acute) Vertigo (Acute) Hypothyroidism (acquired) (Chronic) Elevated PSA (Acute) Primary osteoarthritis of both first carpometacarpal joints (Acute 09/18/15) Hydrocele (Acute) Medical History? A-fib Calculus of left kidney (09/07/16) GERD (gastroesophageal reflux disease) Hydrocele in adult Hyperlipidemia Hypertension Left ureteral stone (09/07/16) Spinal arthritis Urinary tract infection Vitamin D deficiency Surgical History? History of arthroscopy of left knee History of arthroscopy of right knee Hx of bilateral inguinal hernia repair Hx of colonoscopy Rotator Cuff Repair Right and Left Social History/Home Situation: Pt states that he lives in a private home with his and is (I) at his baseline and current level of function. He reports that he is (I) with driving and with dressing and bathing. 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 He has children and grandchildren who are supportive of his care and a supportive . He notes that his biggest limitation is his double vision. He states that this comes and goes but the only thing that this limits is his ability to get on his roof. OVerall he feels that he is at his baseline level of function at this time. Equipment owned/DME: None at this time. SUBJECTIVE: Pt was lying in bed when OT arrived. He is going down for MRI for further testing. He notes that besides his double vision he does not need any (A). OBJECTIVE: General Observation: Pleasant, telemetry, IV in UE Mental Status: A&Ox4 Pain: no c/o pain ROM: RUE AROM WFL L UE AROM WFL STRENGTH: RUE 5/5 throughout LUE 4/5 throughout with shoulder limitation in the RTC FUNCTIONAL MOBILITY/ADLS: BATHING NT although AROM WFL to be able to perform (I) in the seated position and standing position without LOB if no double vision has occurred. DRESSING Dressing UE NT Dressing LE (I) TOILETING NT EATING (I) seated in bed BALANCE: Static sitting Normal Dynamic Sitting Normal SPECIAL TESTS: Daily Activity Limitations Standardized Measure [facility] AM PAC ?6 clicks? Daily Activity Inpatient Short Form: Raw score: 23 Standardized score: 51.12 CMS score: 15.86% INFORMED CONSENT/EDUCATION: Pt instructed in purpose of OT Consult and plan of care. ASSESSMENT: Patient is a 77-year-old male referred to occupational therapy services with diagnosis of onset of severe vertiginous symptoms though he does have a baseline history of vertigo and generalized weakness. Patient presents with clinical signs and symptoms consistent with dx, as demonstrated by the following impairment level findings/ functional limitations: Pt reports that his biggest limiting factor is his double vision at this time. This seems to come and go. He has difficulty with functional mobility when it occurs but notes that this is not consistent throughout his day. AMPAC score 23 Patient is assessed as a Low [id number] complexity based on the following: History: see above Examination: see functional limitations as noted above Presentation: evolving Decision Making: AMPAC score 23 GOALS N/A seen for OT consult only. PLAN OF CARE/TREATMENT PLAN: Discharge from skilled OT services. DISCHARGE RECOMMENDATIONS Outpatient Physical Therapy for vertigo symptoms/ outpatient visual care as pt reports double vision that comes and goes. TREATMENT TIME/MINUTES/CODES [id number] Rosaura Veliz OTR/[facility]
--- NOTE | 2022-11-23 09:32 | PDOC.CMPRO ---
- If Service Date Differs Date of service: 11/23/22 Time of Service: 09:32 Care Management Progress Note S/O: Luis is sitting up in bed when CM met with him. He is awake, pleasant and easily engages in conversation. He is planning on having a MRI today, and waiting to hear the results of his echo. PT recommendation is home with outpatient PT when medically ready per Hospitalist. A: 77 year old male admitted to [facility] on 11/21/22 for TIA with vertigo P: Anticipate Luis will return home once medically cleared. His will drive him home via private vehicle. He will follow up with his PCP and discharge plan of care. CM will continue to follow.
[2022-11-23] MEDS: Pantoprazole 20 MG TABCR PO (09:55)
[2022-11-23] MEDS: LORazepam 1 MG TAB PO (10:34)
[2022-11-23 10:36] VITALS: PULSE 90
[2022-11-23 11:50] VITALS: BP 155/87; PULSE 71; RESP 17; TEMP 36.1; O2SAT 95
[2022-11-23] MEDS: Psyllium PKT 1 EACH PO (12:22)
[2022-11-23 13:30] VITALS: PULSE 92
--- NOTE | 2022-11-23 14:22 | W.PM.DS.N ---
Date of service: 11/23/22 Time of Service: 14:22 DS: Diagnosis Discharge Diagnosis (1) Vertigo: Status: Acute (2) A-fib: (3) Hyperglycemia without ketosis: Status: Acute (4) Hyperlipidemia: (5) Hypertension: (6) Hypothyroidism (acquired): Status: Chronic (7) CKD (chronic kidney disease) stage 3, GFR 30-59 ml/min: Status: Chronic (8) Anemia: Status: Chronic Discharge Plan Disposition Patient Disposition: Home Condition: Improving Discharge Details Reason For Visit: TIA with Vertigo Admit Date/Time: 11/21/22 23:43 Admit Provider: Matias Cleary Attending Provider: Matias Cleary Primary Care Provider: Allan Shaffer Hospital Course Hospital Course: This is a 77-year-old male patient with a history of paroxysmal atrial fibrillation on Eliquis who presented to the ED with photophobia which is not uncommon for him but worse than usual and acute onset vertiginous type symptoms with dizziness appears to have slightly garbled speech and difficulty finding words while he was driving around noon the day of presentation.? He does have a history of chronic photophobia as mentioned and does not have a strong history of vertigo which was the type of dizziness he was endorsing at the time of presentation.? He did respond to IV fluid resuscitation and meclizine and at the time he was seen by the second the ED physician he was less symptomatic but worse with any looking around or moving not being able to go home.? He did have a CTA of the head and neck with CT stroke protocol of the head which were negative.? There were no significant occlusions.? Due to the concern this could be a posterior circulation CVA hospitalist services was requested to admit for further monitoring echocardiogram and MRI. These were all completed on Wednesday and unremarkable no evidence of acute infarct. He was seen by neurology who does recommend the addition of a baby aspirin daily he will follow-up outpatient for further evaluation and recommendations. He is safe for discharge to home and will be discharged home with a prescription for meclizine advised to start aspirin 81 mg daily no services needed at discharge. Discharge discussed with Dr. Alvarado Home Meds and New Rx's Prescriptions: New meclizine 12.5 mg Tablet 12.5 mg PO TID PRN PRNQty: 30 0RF aspirin 81 mg tablet,delayed release (DR/EC) 81 mg PO DAILY Qty: 30 0RF Continued amiodarone 200 mg tablet 200 mg PO DAILY potassium chloride 10 mEq capsule, extended release 10 meq PO DAILY amlodipine 5 MG tablet 5 mg PO DAILY acetaminophen [Tylenol] 325 MG tablet 650 mg PO PRN cholecalciferol (vitamin D3) [Vitamin D3] 25 mcg (1,000 unit) capsule 2,000 unit PO DAILY rabeprazole [AcipHex] 20 MG tablet,delayed release (DR/EC) 20 mg PO DAILY levothyroxine [Synthroid] 75 mcg tablet 75 mcg PO 1XD Eliquis 5 mg Tablet 5 mg PO BID Discharge Instructions Instructions: Vertigo (DC) Stand Alone Forms: Nursing Discharge Form Referrals: Allan Shaffer [Primary Care Provider] - (please call Wednesday to make an Appointment for a hospital Discharge in the next 2 weeks ) China Curiel MD [ [facility] STAFF PHYSICIAN] - (please call Wednesday to make an Appointment [phone]) STAFF,PHYSICAL THERAPY [PHYSICAL THERAPIST] - (Outpatient Physical Therapy for vertigo symptoms/ outpatient visual care as pt reports double vision that comes and goes. ) Activity:: Activity as Tolerated Equipment/Supplies:: No Equipment Needed Diet:: As Tolerated Discharge Orders Discharge Orders: Discharge Order (Routine); Ordered 11/23/22 Ordered By: Jojo Page Discharge Data Discharge Date/Time-TO BE ENTERED AT DEPARTURE: 11/23/22 15:36 DS: Summary Time Spent with Patient providing and/or coordinating discharge services: Greater than 30 minutes Status at Discharge Functional status at discharge: independent ambulation Overall status at discharge: patient is back to baseline Mental Status: mental status grossly normal Speech and Movement: speech and movement normal Mood: congruent mood Affect: normal affect Exam Const General: cooperative, healthy appearing and comfortable Nutritional Appearance: average body habitus Orientation: alert, awake and oriented x3 HENMT Head: normal to inspection, normocephalic and atraumatic Mouth: oral mucosae normal Eyes General: appearance normal, both eyes and all related structures EOM: No nystagmus Chest Chest: normal inspection of the chest Resp Effort & Inspection: normal respiratory effort Auscultation: clear to auscultation bilaterally Cardio Rate: regular rate Rhythm: regular rhythm GI Inspection: normal to inspection Palpation: soft and nontender Skin General skin exam: no rashes or lesions noted Neuro General: patient alert, patient awake, patient oriented x3, oriented, no focal motor deficits and CN's II-XI intact bilaterally Cranial Nerves: no nystagmus Cognition: normal cognition Speech: speech normal Gait: normal gait Motor: muscle tone normal throughout Sensory Exam: no sensory deficits noted Extrem General: normal to inspection, full ROM and no pedal edema Psych Mental Status: mental status grossly normal Speech and Movement: speech and movement normal Mood: congruent mood Affect: normal affect DS: Data Vitals/I&O Vitals and I&O: Vital Signs Temperature 36.1 C L 11/23/22 11:50 Temperature Source Tympanic 11/23/22 11:50 Pulse 71 11/23/22 11:50 Pulse Rhythm Regular 11/23/22 07:45 Pulse 59 L 11/22/22 01:20 Respiratory Rate 17 11/23/22 11:50 Respiratory Effort Normal, Non-Labored 11/23/22 07:45 Respiratory Depth Normal 11/23/22 07:45 Respiratory Pattern Normal 11/23/22 07:45 Blood Pressure 155/87 H 11/23/22 11:50 Blood Pressure Mean 84 11/22/22 01:16 Pulse Oximetry 95 11/23/22 11:50 Oxygen Delivery Method Room Air 11/23/22 11:50 Oxygen Flow Rate 0 11/23/22 11:50 Pain Level 0 11/23/22 11:50 Intake & Output 11/22/22 11/23/22 11/23/22 23:59 11:59 23:59 Intake Total 960 / 1200 180 / 360 180 / 360 Output Total 450 / 1700 Balance 510 / -500 180 / 360 180 / 360 Intake: IV 500 / 500 Oral 460 / 700 180 / 360 180 / 360 Output: Urine 450 / 1700 Other: Urine Color Yellow Urine Appearance Clear Clear Comment unmeasure urine amount. Voiding Methods Toilet PFSH All Active Problems (Updated 11/22/22 @ 08:26 by Matias Cleary) Anemia (Chronic) CKD (chronic kidney disease) stage 3, GFR 30-59 ml/min (Chronic) Hyperglycemia without ketosis (Acute) Vertigo (Acute) Hypothyroidism (acquired) (Chronic) Elevated PSA (Acute) Primary osteoarthritis of both first carpometacarpal joints (Acute 09/18/15) Hydrocele (Acute) Medical History A-fib Calculus of left kidney (09/07/16) GERD (gastroesophageal reflux disease) Hydrocele in adult Hyperlipidemia Hypertension Left ureteral stone (09/07/16) Spinal arthritis Urinary tract infection Vitamin D deficiency Surgical History History of arthroscopy of left knee History of arthroscopy of right knee Hx of bilateral inguinal hernia repair Hx of colonoscopy Rotator Cuff Repair Right and Left Social History Smoking/Tobacco Use Status: Never Smoking risk assessment performed?: Yes Drug use: Never Substance use type: does not use Do you feel safe at home: Yes Do you feel safe in your relationship?: Yes Time Spent with Patient Time Spent with Patient: 45-69 minutes Time was spent: preparing to see the patient(eg.review tests), obtaining and/or reviewing separately otained hiistory, ordering medications,tests, procedures, referring, communicating with other health physician assistant primary care, indepentently interpreting results, counseling the patient and care coordination
--- NOTE | 2022-11-23 14:35 | PDOC.CMDIS ---
- If Service Date Differs Date of service: 11/23/22 Time of Service: 14:35 LACE Index Scoring Tool - Questions: Length of Stay (in days): 2 Acuity (Admit via E.D.?): Yes E.D. Visits: 1 - Answers: Total Score: 6 Risk of Readmission: Low Risk Care Management Discharge Reason for Hospitalization: TIA with vertigo Discharge Plan: Luis is discharged home via private vehicle with . He will follow up with community providers (PCP, Neurology and outpatient PT) and discharge plan of care as prescribed. No [facility] services are ordered. Patient/Family Education Needs: Review discharge instructions, limitations, medications and plan to follow up with outpatient providers. Discuss ask me three. Services Needed at Discharge: Physical Therapy (Outpatient PT)
--- NOTE | 2022-11-23 15:38 | NCONE_ITS ---
Date of service: 11/23/22 Time of Service: 15:38 Assessment and Plan Assessment and plan (1) Transient neurological symptoms: Status: Acute (2) Vertigo: Status: Acute (3) Binocular vision disorder with diplopia: Status: Acute Assessment and plan: Mr. Arreguin presents with transient neurological symptoms, some of which is chronic. DDx includes a reiteration of his chronic symptoms vs TIA vs migraine, particularly given fatigue, duration and evolving symptoms, and dehydration. Low liklihood that this is TIA, however, he has vascular risk factors and atherosclerosis. Thus, I discussed with him the addition of aspirin 81mg daily for secondary prevention. Risks/benefits in setting of apixaban use and ADRs. He is agreeable. Otherwise, I will work to get his prior neurology records from [facility] regarding his chronic symptoms of vertigo, diplopia, and imbalance. We will plan for cognitive testing as an outpatient. He should follow-up in neurology clinic in 4-8 weeks. History of Present Illness History of Present Illness Chief Complaint: vertigo Narrative: Handedness: LEFT. (one cousin that his left-handed; his twin however is right- handed) Mr. Arreguin is a 77 year-old man with atrial fibrillation on apixaban, HTN, HLD, hypothyroidism, chronic kidney disease, anemia, an elevated PSA, and OA. Mr. Arreguin was admitted on 11/21/22 after varying symptoms. He was driving in the afternoon and noted exceptional photophobia that improved with his sunglasses but did not resolve. He then became dizzy describing vertigo. He is not sure how long this lasted but drove home due to this. Once home he noted extreme fatigue and laid down. At some point he noted difficulty getting his word out - unclear duration - and reportedly noted dysarthria of unknown duration. There was also a question of whether his baseline diplopia was worse. He has had some of the above symptoms for some time. -Intermittent vertigo: he notes onset 3 years. Symptoms last <1 minute at a time. He notes no triggers or reliving factors - does not think it is positional. He has previously seen neurologist Dr. Peterson for this. Does not think he has undergone PT. 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 Images are always with one slightly lower and torqued. He recalls being told he was not a surgical candidate. -Word Finding: He notes that he has intermittent word finding issues for some time. It doesn't sound like dysarthria has ever occurred previously. In the ER, Mr. Arreguin had negative HIT and DH testing. His vertigo was positional as reported to them. He was admitted for ongoing inability to stand due to vertigo and has undergone further work-up as below. In addition to above symptoms, he also notes declining balance in the last 4-5 years such that he can no longer stand on one leg unassisted. He admits that he is chronically dehydrated. Work-up: -CTH (11/21/22): Generalized atrophy. I reviewed these images personally and this is my personal interpretation. -CTA head/neck (11/21/22): calcifications at the carotid bulbs bilaterally without significant stenosis. 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 Rads notes distal vertebral artery stenosis additionally. I reviewed these images personally and this is my personal interpretation. -MRI brain w/o (11/23/22): No acute findings. Moderate cerebral atrophy with mild/moderate chronic vascular changes consistent with age. I reviewed these images personally and this is my personal interpretation. -Labs: WBC 8.94, Hgb 13.0, Na 142, K 3.3, BUN 24, Cr 1.4 -> 1.0, glucose 172, Ca 9.2, trop x1 neg, TSH 5.47, FT4 1.38, Uspec grav 1.015; A1c 5.8, LDL 127 Review of Systems All systems reviewed & are unremarkable except as noted in HPI and below PFSH All Active Problems (Updated 11/23/22 @ 21:42 by China Curiel MD) Binocular vision disorder with diplopia (Acute) Transient neurological symptoms (Acute) Anemia (Chronic) CKD (chronic kidney disease) stage 3, GFR 30-59 ml/min (Chronic) Hyperglycemia without ketosis (Acute) Vertigo (Acute) Hypothyroidism (acquired) (Chronic) Elevated PSA (Acute) Primary osteoarthritis of both first carpometacarpal joints (Acute 09/18/15) Hydrocele (Acute) Medical History A-fib Calculus of left kidney (09/07/16) GERD (gastroesophageal reflux disease) Hydrocele in adult Hyperlipidemia Hypertension Left ureteral stone (09/07/16) Spinal arthritis Urinary tract infection Vitamin D deficiency Surgical History History of arthroscopy of left knee History of arthroscopy of right knee Hx of bilateral inguinal hernia repair Hx of colonoscopy Rotator Cuff Repair Right and Left Social History Smoking/Tobacco Use Status: Never Smoking risk assessment performed?: Yes Drug use: Never Substance use type: does not use Do you feel safe at home: Yes Do you feel safe in your relationship?: Yes Visit Medication and Allergies Allergies oxycodone Allergy (Unverified 11/21/22 18:35) Itching propoxyphene [From Darvocet-N] Allergy (Unverified 11/21/22 18:35) Itching sulfamethoxazole [From Bactrim] Allergy (Verified 11/21/22 18:35) itchy- not feeling well trimethoprim [From Bactrim] Allergy (Verified 11/21/22 18:35) itchy- not feeling well Exam Narrative Exam Narrative: Physical Exam: Gen: Patient of apparent stated age, NAD, very talkative Head and face: no facial or cranial abnormalities Neck: Supple, no meningismus, no occipital tenderness CV: irregular Resp: CTA B/L Abd: soft, nontender, nondistended Ext: No edema. No clubbing or cyanosis. No bony deformity. Neuro Exam: Language: fluency, naming, repetition, and comprehension intact; Mental Status: AAOx3, current events and fund of knowledge limited; repetitive Speech: no dysarthria Cranial nerves: Funduscopy: not performed CN II: visual augustine intact CN III, IV, : R eye hypotropia; extraocular movements intact, no nystagmus, pupils symmetric and reactive to light CN V: face sensation intact to LT and PP CN VII: no facial asymmetry noted CN VIII: hearing intact bilaterally CN IX, X: palate rises symmetrically CN XI: trapezius/SCM 5/5 bilaterally CN XII: protrudes tongue symmetrically Sensory: intact to LT, PP, and joint position in all extremities; reduced vibration in the toes bilaterally; Motor: bulk and tone intact. Fine motor movements intact bilaterally. No pronator drift. Strength 5/5 throughout including the deltoids, biceps, triceps, wrist extensors, hip flexors, knee flexors, knee extensors, ankle flexors, and ankle extensors. Reflexes: hyporeflexic throughout with absent achilles tendons bilaterally; toes neutral bilaterally; Coordination: FTN and HTS intact bilaterally Gait: normal gait; slightly imbalanced when standing on one leg Results Last Vital Signs Temp 97.0 F L 11/23/22 11:50 Pulse 71 11/23/22 11:50 Resp 17 11/23/22 11:50 BP 155/87 H 11/23/22 11:50 Pulse Ox 95 11/23/22 11:50 Labs 11/22/22 06:00 11/22/22 06:00
== END 2022-11-23 15:36 | disposition home or self-care (01) ==
LOC: ER 11-22 00:43 → MS 11-22 01:36
PROVIDERS: Student in an Organized Health Care Education/Training Program; Admitting Provider Family Medicine; Emergency Provider Physician Assistant; PCP Family Medicine; Visit Provider Family Medicine
DX: R42 Dizziness and giddiness (principal); H53.2 Diplopia; E86.0 Dehydration; R53.83 Other fatigue; Z79.01 Long term (current) use of anticoagulants; E78.5 Hyperlipidemia, unspecified; E03.9 Hypothyroidism, unspecified; I12.9 Hypertensive chronic kidney disease with stage 1 through stage 4 chronic kidney disease, or unspecified chronic kidney disease; R97.20 Elevated prostate specific antigen [PSA]; K21.9 Gastro-esophageal reflux disease without esophagitis; E55.9 Vitamin D deficiency, unspecified; R73.9 Hyperglycemia, unspecified; N18.31 Chronic kidney disease, stage 3a; D63.1 Anemia in chronic kidney disease; I48.0 Paroxysmal atrial fibrillation; H53.149 Visual discomfort, unspecified; Z79.899 Other long term (current) drug therapy
CPT/HCPCS: 36415; 36416; 70496; 70498; 80053; 80061; 82962; 85027; 87635; 93005; 93306; 96361; 96374; 96375; 97161; 97165; 99223; 99285; 70551; 81003; 81015; 83036; 83735; 84439; 84443; 84484; 85025; 93010; 99233; 99239; G0378; J2405; J2765; J3490

== ENCOUNTER → 2022-11-23 07:41 | Outpatient (BNVA) | payer MEDICARE, OTHER, SELFPAY | PROVIDERS: PCP Family Medicine; Referring Provider Family Medicine; Visit Provider Psychiatry & Neurology Neurology ==

== ENCOUNTER 2022-12-12 10:19 | Emergency (ER) | payer MEDICARE, OTHER, SELFPAY ==
[2022-12-12 10:30] VITALS: BP 148/77; PULSE 79; RESP 18; TEMP 36.7; O2SAT 98
--- NOTE | 2022-12-12 11:00 | DI.RAD_ITS ---
Exam(s) XR HIP RT COMPLETE AP PELVIS EXAM: XR HIP RT COMPLETE AP PELVIS INDICATION: hip pain after fall. COMPARISON: CT CT pelvic w from 04/23/2019 TECHNIQUE: 2D digital imaging was performed. Three views. FINDINGS: Nondisplaced fracture right inferior pubic ramus. No additional fractures. Please see separate CT r eport. Mild degenerative changes of the hips. SI joints and pubic symphysis not widened. IMPRESSION: Fracture right inferior pubic ramus. DATA REPOSITORY: RADIATION DOSE DELIVERED:
--- NOTE | 2022-12-12 11:00 | DI.RAD_ITS ---
Exam(s) XR KNEE RT 3V AP,LAT,CRISTIAN EXAM: XR KNEE RT 3V AP,LAT,CRISTIAN CLINICAL HISTORY: fall ,pain. TECHNIQUE: 2D digital imaging was performed. Three views. COMPARISON: No exams were available for comparison FINDINGS: BONES: No acute fracture is present. No bony destructive lesion is seen. JOINTS: There is severe narrowing of the medial femoral tibial joint space and periarticular spurring noted throughout. No joint effusion is seen. SOFT TISSUE: Vascular calcifications. Question small joint effusion. IMPRESSION: Degenerative changes. No acute abnormality. DATA REPOSITORY: RADIATION DOSE DELIVERED:
[2022-12-12] MEDS: oxyCODONE 5 MG TAB PO (11:24)
--- NOTE | 2022-12-12 11:29 | W.ED.GENAD ---
Discharge Plan Disposition Patient Disposition: Home Discharge Details Clinical Impression: Closed pelvic fracture Primary Care Provider: Allan Shaffer ED Provider: Migdalia Yuan Home Meds and New Rx's Prescriptions: New oxycodone 5 mg capsule 5 mg PO TID PRNQty: 12 0RF Continued amiodarone 200 mg tablet 200 mg PO DAILY potassium chloride 10 mEq capsule, extended release 10 meq PO DAILY amlodipine 5 MG tablet 5 mg PO DAILY acetaminophen [Tylenol] 325 MG tablet 650 mg PO PRN cholecalciferol (vitamin D3) [Vitamin D3] 25 mcg (1,000 unit) capsule 2,000 unit PO DAILY rabeprazole [AcipHex] 20 MG tablet,delayed release (DR/EC) 20 mg PO DAILY levothyroxine [Synthroid] 75 mcg tablet 75 mcg PO 1XD aspirin 81 mg tablet,delayed release (DR/EC) 81 mg PO DAILY Qty: 30 0RF Eliquis 5 mg Tablet 5 mg PO BID Discharge Instructions Additional Instructions: Tylenol 650 mg every 4-6 hours as needed for pain, do not exceed 3 g in 24 hours Take oxycodone as needed for discomfort, this is addictive and you should not operate your vehicle for 8 hours after taking this medication Weightbearing as tolerated, use your walker Follow-up with orthopedics and return earlier should you have new or worsening complaints including calf pain or swelling, numbness or tingling, abdominal pain, weakness or dizziness, or with any new or worsening complaints Referrals: Bebo Saini MD [ [facility] STAFF PHYSICIAN] - Medical Decision Making 77-year-old male presents status post fall yesterday, anticoagulated on Eliquis, landed on his right side, denies any head injury Has not had headache or neck pain No abdominal tenderness reportedly, presents secondary to right persistent hip pain today with difficulty walking Patient with x-ray does not show acute abnormality, secondary to history of Eliquis consumption on CT of extremity with acetabular fractures/pelvic fractures, the recommendation for repeat CT of pelvis with contrast to exclude intra-abdominal pathology, on CT scan no evidence of hematoma or obvious intra-abdominal bleeding Pelvic fractures remain Case discussed with Dr. Saini, weightbearing as tolerated with walker, patient is walker at home Given oxycodone with risk of addiction reviewed Placed on orthopedic list for follow-up Ambulatory with antalgic but steady gait and feels comfortable discharge Will take Tylenol as needed for pain Return precautions reviewed and patient expressed understanding HPI General Date/Time Provider Initiated Documentation: 12/12/22 10:34. HPI Narrative: 77-year-old gentleman with history of atrial fibrillation and chronic anticoagulation presents status post mechanical fall last evening. He slipped on ice and landed on his right hip. He denies any additional injuries. He has been able to ambulate with quite a bit of discomfort. His tetanus is up-to-date. He denies any head injury, neck pain, abdominal pain, or any additional complaints at this time. Related Data Home Medications Medication Instructions Recorded Confirmed amlodipine 5 mg tablet 5 mg PO DAILY 08/02/15 12/12/22 rabeprazole 20 mg tablet,delayed 20 mg PO DAILY 12/29/16 12/12/22 release (AcipHex) acetaminophen 325 mg tablet 650 mg PO PRN 01/31/18 12/12/22 (Tylenol) apixaban 5 mg tablet (Eliquis) 5 mg PO BID 12/30/18 12/12/22 amiodarone 200 mg tablet 200 mg PO DAILY 06/26/19 12/12/22 cholecalciferol (vitamin D3) 25 2,000 unit PO DAILY 02/23/20 12/12/22 mcg (1,000 unit) capsule (Vitamin D3) potassium chloride 10 mEq 10 meq PO DAILY 11/10/22 12/12/22 capsule,extended release levothyroxine 75 mcg tablet 75 mcg PO 1XD 11/21/22 12/12/22 (Synthroid) aspirin 81 mg tablet,delayed 81 mg PO DAILY #30 tabs 11/23/22 12/12/22 release oxycodone 5 mg capsule 5 mg PO TID PRN #12 caps 12/12/22 Previous Rx's Medication Instructions Recorded aspirin 81 mg tablet,delayed 81 mg PO DAILY #30 tabs 11/23/22 release oxycodone 5 mg capsule 5 mg PO TID PRN #12 caps 12/12/22 Allergies Allergy/AdvReac Type Severity Reaction Status Date / Time oxycodone Allergy Itching Unverified 12/12/22 10:34 propoxyphene Allergy Itching Unverified 12/12/22 10:34 [From [place]] sulfamethoxazole Allergy itchy- not Verified 12/12/22 10:34 [From Bactrim] feeling well trimethoprim [From Bactrim] Allergy itchy- not Verified 12/12/22 10:34 feeling well General Stated Complaint: Orthopedic PEDRO: 3 PFSH All Active Problems (Updated 12/12/22 @ 14:43 by CECILIA Cardenas) Closed pelvic fracture (Acute) Binocular vision disorder with diplopia (Acute) Transient neurological symptoms (Acute) Anemia (Chronic) CKD (chronic kidney disease) stage 3, GFR 30-59 ml/min (Chronic) Hyperglycemia without ketosis (Acute) Vertigo (Acute) Hypothyroidism (acquired) (Chronic) Elevated PSA (Acute) Primary osteoarthritis of both first carpometacarpal joints (Acute 09/18/15) Hydrocele (Acute) Medical History A-fib Calculus of left kidney (09/07/16) GERD (gastroesophageal reflux disease) Hydrocele in adult Hyperlipidemia Hypertension Left ureteral stone (09/07/16) Spinal arthritis Urinary tract infection Vitamin D deficiency Surgical History History of arthroscopy of left knee History of arthroscopy of right knee Hx of bilateral inguinal hernia repair Hx of colonoscopy Rotator Cuff Repair Right and Left Social History Smoking/Tobacco Use Status: Never Smoking risk assessment performed?: Yes Alcohol Intake: current Alcohol Intake frequency: a few times a month Drug use: Never Substance use type: does not use Do you feel safe at home: Yes Do you feel safe in your relationship?: Yes Exam Narrative Exam Narrative: Patient is alert and oriented, no visible signs of head trauma, pupils equal round reactive to light and accommodation, no midline neck tenderness No visible signs of chest wall trauma, respiration clear to auscultation bilaterally, regular cardiac rate, no abdominal tenderness, no visible signs of abdominal trauma, no CVA tenderness or bruising Tenderness to right hip, no leg shortening, no tenderness to ankle, knee with tenderness and abrasion, no neurovascularly intact, ambulatory with antalgic gait Fully alert and oriented, GCS 15, strength and sensation intact distally Course Vital Signs Vital signs: Vital Signs Temperature 36.7 C 12/12/22 10:30 Pulse 79 12/12/22 10:30 Respiratory Rate 18 12/12/22 10:30 Blood Pressure 148/77 H 12/12/22 10:30 Pulse Oximetry 98 12/12/22 10:30 Temperature 36.7 C 12/12/22 10:30 Temperature Source Oral 12/12/22 10:30 Pulse 79 12/12/22 10:30 Respiratory Rate 18 12/12/22 10:30 Respiratory Effort Normal, Non-Labored 12/12/22 10:32 Blood Pressure 148/77 H 12/12/22 10:30 Blood Pressure Position Supine 12/12/22 10:30 Pulse Oximetry 98 12/12/22 10:30 Oxygen Delivery Method Room Air 12/12/22 10:30 Oxygen Flow Rate 0 12/12/22 10:30 Pain Level 10 12/12/22 10:30
--- NOTE | 2022-12-12 12:00 | DI.CT_ITS ---
Exam(s) CT LOWER EXTREMITY RT WO EXAM: CT LOWER EXTREMITY RT WO CLINICAL HISTORY: right hip pain, difficulty ambulating after a fall. TECHNIQUE: Imaging Protocol: Axial computed tomography images with coronal and sagittal reformatted images were created and reviewed. CONTRAST MATERIAL: Intravenous: Omnipaque 350 Contrast volume:structured data in ml Contrast route:IV - COMPARISON: No exams were available for comparison FINDINGS: Bones: Nondisplaced fracture right inferior pubic ramus. Nondisplaced fracture of the junction of th e right superior pubic ramus and anterior acetabulum. No significant separation at the articular christo face. No evidence of surrounding hematoma. No hip fracture or spine fracture. Degenerative changes noted in the spine. Soft Tissues: Vascular calcifications. Distended urinary bladder and bladder diverticulum. Enlarge d prostate. Fatty containing inguinal hernias and small right hydrocele. IMPRESSION: Nondisplaced fractures of the right inferior pubic ramus and junction of superior pubic ramus and tj tabulum. RADIATION DOSE DELIVERED: 288.6mGy.cm Total DLP DATA REPOSITORY: All CT scans at this facility are submitted to the National Radiology Data Registry (NRDR) Dose Index Registry (DIR) with the [employer] (ACR). RADIATION OPTIMIZATION: All CT scans at this facility use at least one of these dose optimization te chniques: automated exposure control; mA and/or kV adjustment per patient size (includes targeted exa ms where dose is matched to clinical indication); or iterative reconstruction.
--- NOTE | 2022-12-12 12:02 | DI.VRAD_ITS ---
PROCEDURE INFORMATION: Exam: XR Right Knee Exam date and time: 12/12/2022 11:36 AM Age: 77 years old Clinical indication: Other: Knee pain after fall TECHNIQUE: Imaging protocol: Radiologic exam of the right knee. Views: 3 views. COMPARISON: No relevant prior studies available. FINDINGS: Bones/joints: There are tricompartmental degenerative changes of the knee, greatest of the patellofemoral compartment. Small joint effusion. No fracture. Soft tissues: Normal. IMPRESSION: Tricompartment arthropathy. Dictated and Authenticated by: Lenin Mejia MD. Ordering:AUSTEN Negron MD
--- NOTE | 2022-12-12 12:03 | DI.VRAD_ITS ---
PROCEDURE INFORMATION: Exam: XR Right Hip Exam date and time: 12/12/2022 11:33 AM Age: 77 years old Clinical indication: Other: Hip pain after fall TECHNIQUE: Imaging protocol: Radiologic exam of the right hip. Views: 2 or 3 views hip with pelvis when performed. COMPARISON: CT ABDOMEN PELVIS WO/W 06/13/2019 9:59 AM FINDINGS: Bones/joints: There are mild degenerative changes of the hip joints. No evidence of fracture or avascular necrosis. Soft tissues: Unremarkable. IMPRESSION: No evidence of fracture. If patient is non weight-bearing consider CT or MRI. Dictated and Authenticated by: Lenin Mejia MD. Ordering:AUSTEN Negron MD
--- NOTE | 2022-12-12 12:46 | DI.VRAD_ITS ---
PROCEDURE INFORMATION: Exam: CT Right Lower Extremity Without Contrast, Hip Exam date and time: 12/12/2022 12:24 PM Age: 77 years old Clinical indication: Other: Right hip pain, difficulty ambulating after a fall TECHNIQUE: Imaging protocol: CT of the right lower extremity without contrast was performed. Exam focused on the hip. Radiation optimization: All CT scans at this facility use at least one of these dose optimization techniques: automated exposure control; mA and/or kV adjustment per patient size (includes targeted exams where dose is matched to clinical indication); or iterative reconstruction. COMPARISON: CR XR HIP RT COMPLETE AP PELVIS 12/12/2022 11:33 AM FINDINGS: Bones/joints: Fracture right inferior pubic ramus. Nondisplaced fracture proximal right ischial pubic ramus. No hip fracture. Nondisplaced fracture right anterior acetabulum. Disc degeneration L5-S1. Soft tissues: Soft tissue swelling. Fat containing right inguinal hernia. Vasculature: Vascular calcifications. Urinary bladder: Urinary bladder diverticulum is. Urinary bladder stone. Reproductive: Left-sided hydrocele. Right scrotal calcification. Prostate enlargement. New IMPRESSION: 1. No hip fracture. 2. Fracture of the anterior acetabulum and ischial ramus. 3. Fracture of the inferior pubic ramus. Dictated and Authenticated by: Lenin Mejia MD. Ordering:AUSTEN Negron MD
--- NOTE | 2022-12-12 13:15 | DI.CT_ITS ---
Exam(s) CT ABDOMEN PELVIS W EXAM: CT ABDOMEN PELVIS W CLINICAL HISTORY: pelvic fracture, right, eval for hematoma. TECHNIQUE: Imaging Protocol: Axial computed tomography images with coronal and sagittal reformatted images were created and reviewed CONTRAST MATERIAL: Intravenous: Omnipaque 350 Contrast volume:100 ml Oral: no COMPARISON: CT CT BRAIN NECK CTA from 11/21/2022 CR,XR XR HIP RT COMPLETE AP PELVIS from 12/12/2022 FINDINGS: ABDOMEN: Lung Bases: Normal where visualized. Heart mildly enlarged. Coronary artery calcifications. Liver: Normal density. No measurable mass. Gallbladder and biliary tract: No radiodense calculus or dilation. Pancreas: Normal density, no abnormal calcifications or inflammatory process. Spleen: Normal. Kidneys: Normal size, contour and axis. No radiodense stones or obstructive uropathy. No suspicious m asses seen. Adrenal glands: No masses seen. Abdominal Aorta: Atherosclerotic changes. Mildly dilated to 3.2 cm. Soft tissues: Small fatty containing umbilical hernia containing a small portion of bowel which is no t causing obstruction. No wall thickening. Fatty containing right inguinal hernia. Small right hyd rocele. PELVIS: Bladder: Distended bladder with diverticulum noted. Mild wall thickening. No calculi.No focal mass. Bowel: Large quantity of stool. Sigmoid diverticulosis. No evidence of diverticulitis. No obstruct ion. No bowel wall thickening. Appendix normal. Peritoneal cavity: No ascites, collection or mesenteric inflammatory response. Bones: Acute appearing fractures of the right inferior pubic ramus and junction of superior ramus wit h anterior right acetabulum. No femoral fractures. No visible sacral fractures. No evidence of christo rounding hematomas. Chronic appearing mild compression fracture of T9 and T11. Degenerative changes noted in the spine. Reproductive organs: Enlarged prostate. Lymph nodes: Unremarkable. Impression: Nondisplaced fractures of the right inferior pubic ramus at the junction of anterior right acetabulum with superior pubic ramus. No surrounding hematomas. No acute organ injury. RADIATION DOSE DELIVERED: 926.06mGy.cm Total DLP DATA REPOSITORY: All CT scans at this facility are submitted to the National Radiology Data Registry (NRDR) Dose Index Registry (DIR) with the [employer] (ACR). RADIATION OPTIMIZATION: All CT scans at this facility use at least one of these dose optimization te chniques: automated exposure control; mA and/or kV adjustment per patient size (includes targeted exa ms where dose is matched to clinical indication); or iterative reconstruction.
[2022-12-12 13:42] LABS: Abs Immature Grans 0.03 10^3/uL (0.0-0.06); Absolute Basophil Count 0.03 10^3/uL (0.0-0.2); Absolute Eosinophil Count 0.06 10^3/uL (0.0-0.7); Absolute Lymphocyte Count 0.74 10^3/uL (1.2-3.4); Absolute Monocyte Count 0.75 10^3/uL (0.1-0.8); Absolute Neutrophil Count 6.64 10^3/uL (1.2-6.7); Basophils % 0.4; Eosinophils % 0.7; HCT 38.7 % (40.0-50.0); HGB 13.1 g/dL (13.5-17.5); Immature Grans % 0.4; MCH 31.4 pg (27.0-33.0); MCHC 33.9 % (32.0-36.0); MCV 93 fL (80-95); MPV 9.6 fL (8.0-11.0); Monocytes % 9.1; Neutrophils % 80.4; Platelet Count 213 10^3/uL (130-400); RBC 4.17 10^6/uL (4.36-5.78); RDW-SD 47.6 fL; WBC 8.25 10^3/uL (4.4-10.8)
[2022-12-12 13:54] LABS: Anion Gap 8.8 mmol/L (3-11); BUN 22 mg/dL (7-18); CO2 26.2 mmol/L (21.0-32.0); CREATININE 1.2 mg/dL (0.70-1.30); Calcium 8.9 mg/dL (8.5-10.1); Chloride 105 mmol/L (98-107); Estimated GFR 61.52 (mL/min/1.73m2); Glucose 99 mg/dL (74-106); Potassium 3.8 mmol/L (3.5-5.1); Sodium 140 mmol/L (136-145)
[2022-12-12] MEDS: Omnipaque 350 MG/ML 100 ML BTL IJ (14:05)
[2022-12-12] MEDS: Normal Saline - Diluent 50 ML VIAL IJ (14:05)
[2022-12-12] MEDS: Normal Saline Flush 10 ML SYR IVP (14:06)
--- NOTE | 2022-12-12 14:15 | DI.VRAD_ITS ---
PROCEDURE INFORMATION: Exam: CT Abdomen And Pelvis With Contrast Exam date and time: 12/12/2022 1:58 PM Age: 77 years old Clinical indication: Other: Pelvis FX, right, eval for hematoma TECHNIQUE: Imaging protocol: Computed tomography of the abdomen and pelvis with contrast. Radiation optimization: All CT scans at this facility use at least one of these dose optimization techniques: automated exposure control; mA and/or kV adjustment per patient size (includes targeted exams where dose is matched to clinical indication); or iterative reconstruction. Contrast material: OMNIPAQUE 350; Contrast volume: 100 ml; Contrast route: INTRAVENOUS (IV); COMPARISON: CT ABDOMEN PELVIS WO/W 06/13/2019 9:59 AM FINDINGS: Liver: Normal. No mass. Gallbladder and bile ducts: Normal. No calcified stones. No ductal dilation. Pancreas: Normal. No ductal dilation. Spleen: Normal. No splenomegaly. Adrenal glands: Normal. No mass. Kidneys and ureters: Normal. No hydronephrosis. Stomach and bowel: No small bowel dilatation or obstruction. Sigmoid colon diverticulosis. Appendix: No evidence of appendicitis. Intraperitoneal space: Unremarkable. No free air. No significant fluid collection. Vasculature: Infrarenal abdominal aorta measures 2.6 x 3.2 cm. Lymph nodes: Unremarkable. No enlarged lymph nodes. Urinary bladder: Distended urinary bladder. Urinary bladder diverticulum is. Reproductive: Prostate enlargement prostate measures 5.6 x 5.7 x 5.2 cm. Left hydrocele. Bones/joints: Fracture of the right anterior acetabulum and ischial ramus. Fracture of the right inferior pubic ramus. Anterior wedge T9, T10 and T11. These appear chronic. Soft tissues: Fat containing right inguinal hernia. Fat and bowel containing umbilical hernia. IMPRESSION: 1. Fracture of the right anterior acetabulum and ischial ramus. 2. Fracture right inferior pubic ramus. 3. Chronic wedge deformities T9 through T11. 4. Infrarenal aortic aneurysm measuring 3.2 cm. 5. Prostate enlargement. 6. Umbilical hernia containing fat and bowel. No bowel obstruction. Dictated and Authenticated by: Lenin Mejia MD. Ordering:AUSTEN Negron MD
[2022-12-12 15:14] VITALS: BP 133/74; PULSE 66; O2SAT 94
== END 2022-12-12 15:35 | disposition home or self-care (01) ==
PROVIDERS: Emergency Provider Physician Assistant; PCP Family Medicine
DX: S32.9XXA Fracture of unspecified parts of lumbosacral spine and pelvis, initial encounter for closed fracture (principal); W19.XXXA Unspecified fall, initial encounter; I10 Essential (primary) hypertension
CPT/HCPCS: 73562; 80048; 99285; 73502; 73700; 74177; 85025; 99284; J3490

== ENCOUNTER 2023-01-06 14:46 | Outpatient (CLI) | payer MEDICARE, OTHER, SELFPAY ==
--- NOTE | 2023-01-06 14:15 | DI.RAD_ITS ---
Exam(s) XR PELVIS AP EXAM: XR PELVIS AP CLINICAL HISTORY: pelic fx f/u. TECHNIQUE: 2D digital imaging was performed. The AP view COMPARISON: CT CT LOWER EXTREMITY RT WO from 12/12/2022 CR,XR XR HIP RT COMPLETE AP PELVIS from 12/12/2022 FINDINGS: The fractures of the right inferior pubic ramus and right acetabulum are barely visible. No new find ings. DATA REPOSITORY: RADIATION DOSE DELIVERED:
== END 2023-01-06 14:47 | disposition home or self-care (01) ==
LOC: DIORS 14:46
PROVIDERS: PCP Family Medicine; Referring Provider Family Medicine; Visit Provider Student in an Organized Health Care Education/Training Program
DX: S32.9XXA Fracture of unspecified parts of lumbosacral spine and pelvis, initial encounter for closed fracture (principal); W19.XXXA Unspecified fall, initial encounter
CPT/HCPCS: 99203; 99213; 72170

== ENCOUNTER → 2023-02-12 12:44 | Outpatient (BNVA) | payer MEDICARE, OTHER, SELFPAY | PROVIDERS: PCP Family Medicine; Referring Provider Family Medicine; Visit Provider Urology | DX: N43.3 Hydrocele, unspecified (principal); N20.1 Calculus of ureter; R97.20 Elevated prostate specific antigen [PSA] | CPT/HCPCS: 55000; 76870 ==

== ENCOUNTER → 2023-03-11 12:13 | Outpatient (BNVA) | payer MEDICARE, OTHER, SELFPAY | PROVIDERS: PCP Family Medicine; Referring Provider Family Medicine; Visit Provider Urology | DX: R35.0 Frequency of micturition (principal); Z87.898 Personal history of other specified conditions; N32.3 Diverticulum of bladder | CPT/HCPCS: 76775; 81003; 99213 ==

== ENCOUNTER → 2023-05-21 12:49 | Outpatient (BNVA) | payer MEDICARE, OTHER, SELFPAY | PROVIDERS: PCP Family Medicine; Referring Provider Family Medicine; Visit Provider Urology | DX: N43.3 Hydrocele, unspecified (principal); R97.20 Elevated prostate specific antigen [PSA] | CPT/HCPCS: 76870; 99215 ==

== ENCOUNTER 2023-08-09 12:56 | Outpatient (CLI) | payer MEDICARE, OTHER, SELFPAY ==
[2023-08-09 18:10] LABS: PSA, Diagnostic 5.4 ng/mL (<=6.5)
== END 2023-08-09 12:57 | disposition home or self-care (01) ==
LOC: LBO 13:00
PROVIDERS: PCP Family Medicine; Visit Provider Urology
DX: R97.20 Elevated prostate specific antigen [PSA] (principal)
CPT/HCPCS: 36415; 84153

== ENCOUNTER → 2023-08-20 12:44 | Outpatient (BNVA) | payer MEDICARE, OTHER, SELFPAY | PROVIDERS: PCP Family Medicine; Visit Provider Urology | DX: R39.89 Other symptoms and signs involving the genitourinary system (principal) | CPT/HCPCS: 55000; 76870 ==

== ENCOUNTER → 2023-11-19 12:38 | Outpatient (BNVA) | payer MEDICARE, OTHER, SELFPAY | PROVIDERS: PCP Family Medicine; Referring Provider Family Medicine; Visit Provider Urology | DX: N43.3 Hydrocele, unspecified (principal); N20.1 Calculus of ureter; R97.20 Elevated prostate specific antigen [PSA] | CPT/HCPCS: 55000; 76870 ==

== ENCOUNTER → 2024-02-18 12:38 | Outpatient (BNVA) | payer MEDICARE, OTHER, SELFPAY | PROVIDERS: PCP Family Medicine; Visit Provider Urology | DX: N43.3 Hydrocele, unspecified (principal); N20.1 Calculus of ureter; R97.20 Elevated prostate specific antigen [PSA] | CPT/HCPCS: 55000; 76942 ==

== ENCOUNTER 2024-03-27 18:53 | Outpatient (CLI) | payer MEDICARE, OTHER, SELFPAY ==
[2024-03-27 18:42] LABS: PSA, Diagnostic 5.9 ng/mL (<=6.5)
== END 2024-03-27 18:54 | disposition home or self-care (01) ==
LOC: LBO 18:53
PROVIDERS: PCP Family Medicine; Visit Provider Urology
DX: R97.20 Elevated prostate specific antigen [PSA] (principal)
CPT/HCPCS: 36415; 84153

== ENCOUNTER → 2024-05-19 12:52 | Outpatient (BNVA) | payer MEDICARE, OTHER, SELFPAY | PROVIDERS: PCP Family Medicine; Referring Provider Family Medicine; Visit Provider Urology | DX: N43.3 Hydrocele, unspecified (principal); N20.1 Calculus of ureter; R97.20 Elevated prostate specific antigen [PSA] | CPT/HCPCS: 76942 ==

== ENCOUNTER 2024-06-21 12:00 | Emergency (ER) | payer MEDICARE, OTHER, SELFPAY ==
[2024-06-21 12:16] VITALS: BP 148/84; PULSE 88; RESP 16; TEMP 36; O2SAT 95
--- NOTE | 2024-06-21 12:30 | DI.RAD_ITS ---
Exam(s) XR ELBOW RT COMPLETE EXAM: XR ELBOW RT COMPLETE CLINICAL HISTORY: twisted R elbow. TECHNIQUE: 2D digital imaging was performed. COMPARISON: No exams were available for comparison FINDINGS: Four views There appears to be a joint effusion with elevation of the anterior fat pad. There are degenerative changes and chondrocalcinosis in the medial and lateral aspects of the elbow j oint. No obvious acute fracture lines evident. Epicondyles unremarkable although some calcification is noted in the common flexor tendon on the medial aspect of the elbow adjacent to the medial epicon dyle. Five no significant osseous lesions. There is mild swelling over the posterior elbow all olecranon fossa region. IMPRESSION: Degenerative changes. Chondrocalcinosis. Cannot exclude subtle occult fracture. DATA REPOSITORY: RADIATION DOSE DELIVERED:
[2024-06-21 13:22] VITALS: BP 123/77; PULSE 77; O2SAT 95
--- NOTE | 2024-06-21 14:15 | DI.CT_ITS ---
Exam(s) CT UPPER EXTREMITY RT WO EXAM: CT UPPER EXTREMITY RT WO CLINICAL HISTORY: severe tenderness lateral elbow and olecranon TECHNIQUE: Imaging Protocol: Axial computed tomography images with coronal and sagittal reformatted images were created and reviewed. CONTRAST MATERIAL: None COMPARISON: CR XR ELBOW RT COMPLETE from 06/21/2024 FINDINGS: Bones: There is a bony fragment at the lateral aspect of the radiocapitellar joint which may be chron ic. No acute fracture is visible. Bony alignment is satisfactory. No cellulitic or osteomyelitic changes are identified. Small degenerative subchondral cysts. Joints: There is elevation of both anterior and small posterior fat pads consistent with joint effusi on. Underlying degenerative changes at the elbow joint. Chondrocalcinosis. Soft Tissues: Posterior swelling. IMPRESSION: No acute fracture is visible. Degenerative changes and joint effusion are present. RADIATION DOSE DELIVERED: Total DLP DATA REPOSITORY: All CT scans at this facility are submitted to the National Radiology Data Registry (NRDR) Dose Index Registry (DIR) with the [employer] (ACR). RADIATION OPTIMIZATION: All CT scans at this facility use at least one of these dose optimization te chniques: automated exposure control; mA and/or kV adjustment per patient size (includes targeted exa ms where dose is matched to clinical indication); or iterative reconstruction.
[2024-06-21] MEDS: Ketorolac 15 MG/ML VIAL IM (14:34)
--- NOTE | 2024-06-21 15:36 | W.ED.GENAD ---
Discharge Plan Disposition Patient Disposition: Home Condition: Stable Discharge Details Chief Complaint: Orthopedic Clinical Impression: Right elbow pain Primary Care Provider: Allan Shaffer ED Provider: Yaakov Brady Home Meds and New Rx's Prescriptions: No Action amiodarone 200 mg tablet 200 mg PO DAILY potassium chloride 10 mEq capsule, extended release 10 meq PO DAILY tamsulosin 0.4 mg capsule 0.4 mg PO QDAY Qty: 90 4RF amlodipine 5 MG tablet 5 mg PO DAILY acetaminophen [Tylenol] 325 MG tablet 650 mg PO PRN cholecalciferol (vitamin D3) [Vitamin D3] 25 mcg (1,000 unit) capsule 2,000 unit PO DAILY rabeprazole [AcipHex] 20 MG tablet,delayed release (DR/EC) 20 mg PO DAILY levothyroxine [Synthroid] 75 mcg tablet 75 mcg PO 1XD aspirin 81 mg tablet,delayed release (DR/EC) 81 mg PO DAILY Qty: 30 0RF Eliquis 5 mg Tablet 5 mg PO BID Discharge Instructions Instructions: Joint Pain Additional Instructions: Please follow-up with your primary care and transportation maintenance specialist. Please return to the emergency department for any worsening symptoms HPI General Date/Time Provider Initiated Documentation: 06/21/24 12:20. HPI Narrative: 79-year-old male presents with traumatic right elbow injury noted this morning to have pain to his right acutely after twisting his elbow while leaning to lift himself out of bed. Pain to lateral elbow. Denies fevers chills nausea vomiting or other systemic signs of illness. Related Data Home Medications ?Medication ?Instructions ?Recorded ?Confirmed amlodipine 5 mg tablet 5 mg PO DAILY 08/02/15 06/21/24 rabeprazole 20 mg tablet,delayed 20 mg PO DAILY 12/29/16 06/21/24 release (AcipHex) acetaminophen 325 mg tablet 650 mg PO PRN 01/31/18 06/21/24 (Tylenol) apixaban 5 mg tablet (Eliquis) 5 mg PO BID 12/30/18 06/21/24 amiodarone 200 mg tablet 200 mg PO DAILY 06/26/19 06/21/24 cholecalciferol (vitamin D3) 25 2,000 unit PO DAILY 02/23/20 06/21/24 mcg (1,000 unit) capsule (Vitamin D3) potassium chloride 10 mEq 10 meq PO DAILY 11/10/22 06/21/24 capsule,extended release levothyroxine 75 mcg tablet 75 mcg PO 1XD 11/21/22 06/21/24 (Synthroid) aspirin 81 mg tablet,delayed 81 mg PO DAILY #30 tabs 11/23/22 06/21/24 release tamsulosin 0.4 mg capsule 0.4 mg PO QDAY urination #90 caps 05/19/24 06/21/24 Previous Rx's ?Medication ?Instructions ?Recorded aspirin 81 mg tablet,delayed 81 mg PO DAILY #30 tabs 11/23/22 release tamsulosin 0.4 mg capsule 0.4 mg PO QDAY urination #90 caps 05/19/24 Allergies Allergy/AdvReac Type Severity Reaction Status Date / Time propoxyphene (From Allergy Itching Unverified 06/21/24 14:24 Darvocet-N) sulfamethoxazole (From Allergy itchy- not Verified 06/21/24 14:24 Bactrim) feeling well trimethoprim (From Bactrim) Allergy itchy- not Verified 06/21/24 14:24 feeling well General Stated Complaint: Orthopedic PEDRO: 4 Exam Narrative Exam Narrative: Alert oriented interactive Normal voice tolerate secretions No respiratory distress speaking full sentences Point tenderness over lateral aspect of right elbow without abrasion ecchymosis or erythema, no induration, no fluctuance no purulence, patient is able to extend and flex elbow with most pain coming at end of extension, no crepitus or external deformity noted, radial pulse intact median radial ulnar sensory distribution intact Course Vital Signs Vital signs: Vital Signs Temperature 36.0 C L 06/21/24 12:16 Pulse 88 06/21/24 12:16 Respiratory Rate 16 06/21/24 12:16 Blood Pressure 148/84 H 06/21/24 12:16 Pulse Oximetry 95 06/21/24 12:16 Temperature 36.0 C L 06/21/24 12:16 Temperature Source Skin 06/21/24 12:16 Pulse 77 06/21/24 13:22 Respiratory Rate 16 06/21/24 12:16 Respiratory Effort Normal, Non-Labored 06/21/24 14:32 Blood Pressure 123/77 06/21/24 13:22 Blood Pressure Mean 92 06/21/24 13:22 Blood Pressure Position Sitting 06/21/24 12:16 Pulse Oximetry 95 06/21/24 13:22 Oxygen Delivery Method Room Air 06/21/24 13:22 Oxygen Flow Rate 0 06/21/24 13:22 Pain Level 3 06/21/24 12:16 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/21/24 12:16 Medical Decision Making 79-year-old male presents with traumatic right elbow discomfort after twisting elbow while lifting himself out of bed this morning, pain to lateral right elbow, range of motion largely intact with most pain occurring at and extension, able to flex, no fluctuance purulence erythema induration or trauma noted no external deformity noted, neurovascular exam of limb intact, x-ray read as negative however cannot definitively rule out occult fracture given patient's level of discomfort upon palpation CT elbow was obtained showing no fracture some degenerative changes and a mild joint effusion. Consider elbow strain versus sprain versus osteoarthritis lower suspicion for septic joint given history physical afebrile nontoxic with definitive event of trauma will provide patient with home care instructions and return precautions. 15: 46 resting comfortably no acute distress range of motion intact neurovascular exam intact. CT showing no sign of fracture, does show some degenerative changes with joint effusion. Again given afebrile nontoxic state lower suspicion for septic joint however given strict return precautions for any worsening symptomatology. Must also consider Lyme arthritis although patient has never reported any exposure or any other systemic constellations of Lyme disease. Will arrange close orthopedic follow-up. Given strict return precautions to the emergency department. Quality:SDOH Health Related Social Needs: No Data to Display PFSH All Active Problems (Updated 06/21/24 @ 15:50 by Yaakov Brady MD) Right elbow pain (Acute) Lower urinary tract symptoms (LUTS) (Acute) Binocular vision disorder with diplopia (Acute) Transient neurological symptoms (Acute) Anemia (Chronic) CKD (chronic kidney disease) stage 3, GFR 30-59 ml/min (Chronic) Hyperglycemia without ketosis (Acute) Vertigo (Acute) Hypothyroidism (acquired) (Chronic) Elevated PSA (Acute) Primary osteoarthritis of both first carpometacarpal joints (Acute 09/18/15) Hydrocele (Acute) Medical History A-fib Calculus of left kidney (09/07/16) GERD (gastroesophageal reflux disease) Hydrocele in adult Hyperlipidemia Hypertension Left ureteral stone (09/07/16) Spinal arthritis Urinary tract infection Vitamin D deficiency Surgical History History of arthroscopy of left knee History of arthroscopy of right knee Hx of bilateral inguinal hernia repair Hx of colonoscopy Rotator Cuff Repair Right and Left Social History Smoking/Tobacco Use Status: Never Smoking risk assessment performed?: Yes Alcohol Intake: current Alcohol Intake frequency: a few times a month Drug use: Never Substance use type: does not use Current gender identity: male Do you feel safe at home: Yes Do you feel safe in your relationship?: Yes
[2024-06-21 16:07] VITALS: BP 129/71; PULSE 68; RESP 16; TEMP 37; O2SAT 97
== END 2024-06-21 16:08 | disposition home or self-care (01) ==
PROVIDERS: Emergency Provider Emergency Medicine; PCP Family Medicine
DX: M25.521 Pain in right elbow (principal); X50.0XXA Overexertion from strenuous movement or load, initial encounter
CPT/HCPCS: 96372; 99284; 73080; 73200; 99283; J1885

== ENCOUNTER 2024-07-01 07:35 | Emergency (ER) | payer MEDICARE, OTHER, SELFPAY ==
--- NOTE | 2024-07-01 07:30 | RT.EKG_ITS ---
APPROVED REPORT Exam: Resting ECG Reason for Exam: Abd pain Patient Location: E HR:75 bpm ECG Measurements Heart Rate 75 AXIS MS 242 P 38 QRSd 110 QRS 23 QT 457 T 37 QTc 512 Conclusion Sinus rhythm, rate 75 Prolonged MS interval at 242ms Prolonged QT interval at 512ms No STEMI No significant changes from prior
[2024-07-01 07:40] VITALS: BP 156/104; PULSE 93; RESP 20; TEMP 36.8; O2SAT 98
--- NOTE | 2024-07-01 07:50 | DI.CT_ITS ---
Exam(s) CT ABDOMEN PELVIS W EXAM: CT ABDOMEN PELVIS W CLINICAL HISTORY: LLQ and L. flank pain TECHNIQUE: Imaging Protocol: Axial computed tomography images with coronal and sagittal reformatted images were created and reviewed. CONTRAST MATERIAL: Intravenous: Omnipaque 350 Contrast volume:85 mL Oral: No COMPARISON: CT CT ABDOMEN PELVIS W from 12/12/2022 FINDINGS: ABDOMEN: Lung Bases: Coronary artery calcifications are present. Liver: Normal density. No measurable mass. Portal, Superior Mesenteric, and Splenic Veins: Unremarkable. Gallbladder and Biliary Tract: No radiodense calculus or dilation. Pancreas: Normal density, no abnormal calcifications or inflammatory process. Spleen: Normal. Adrenals: No masses seen. Kidneys: Normal size, contour and axis. There is a calcifications seen in the right renal hilum which appears to be vascular related. No nephrolithiasis or hydronephrosis. Tiny hypodensities are seen in the kidneys likely reflecting small cysts. No follow-up is recommended. Abdominal Aorta: Abdominal portion non-dilated. Atherosclerotic calcification is present. Bowel: There is diverticulosis of the colon but no evidence of acute diverticulitis. There is a larg e amount of stool throughout the colon suggesting constipation. There is no evidence of bowel obstru ction or bowel wall thickening. There is a small hiatal hernia. The stomach is incompletely distend ed limiting evaluation. No evidence of appendicitis. Peritoneal Cavity: No ascites, collection or mesenteric inflammatory response. No free air. Lymph Nodes: Within normal limits. Bones: Within normal limits for the patient's age. Old healed rib fractures. There is an old healed right inferior pubic ramus fracture. Soft Tissues: There is a fat containing right inguinal hernia. There is a small fat containing left inguinal hernia and a small fat containing umbilical hernia. PELVIS: Bladder: Symmetric distention, no gross wall thickening. There are bladder diverticula present. Ther e is a 2 mm calcification in the right expect of the urinary bladder which may represent a passed sto ne. Reproductive Organs: Mildly enlarged prostate gland. There is fluid seen in the left scrotum suggest ing hydrocele. Lymph Nodes: Within normal limits. Bones: Within normal limits for the patient's age. IMPRESSION: 1. No evidence of left nephrolithiasis or hydronephrosis. 2. 2 mm urinary bladder stone. 3. Constipation. 4. Colonic diverticulosis without evidence of acute diverticulitis. 5. Mildly enlarged prostate gland. 6. Left scrotal hydrocele. RADIATION DOSE DELIVERED: 388.52mGy.cm Total DLP DATA REPOSITORY: All CT scans at this facility are submitted to the National Radiology Data Registry (NRDR) Dose Index Registry (DIR) with the [employer] (ACR). RADIATION OPTIMIZATION: All CT scans at this facility use at least one of these dose optimization te chniques: automated exposure control; mA and/or kV adjustment per patient size (includes targeted exa ms where dose is matched to clinical indication); or iterative reconstruction.
--- NOTE | 2024-07-01 07:51 | ED.GENADUL_ITS ---
Discharge Plan Disposition Patient Disposition: Home Condition: Stable Discharge Details Clinical Impression: Acute constipation, Hydrocele, Hypothyroidism (acquired), CKD (chronic kidney disease) stage 3, GFR 30-59 ml/min, Anemia, Lower urinary tract symptoms (LUTS) Primary Care Provider: Allan Shaffer ED Provider: China Rivera Home Meds and New Rx's Prescriptions: No Action amiodarone 200 mg tablet 200 mg PO DAILY potassium chloride 10 mEq capsule, extended release 10 meq PO DAILY tamsulosin 0.4 mg capsule 0.4 mg PO QDAY Qty: 90 4RF amlodipine 5 MG tablet 5 mg PO DAILY acetaminophen [Tylenol] 325 MG tablet 650 mg PO PRN cholecalciferol (vitamin D3) [Vitamin D3] 25 mcg (1,000 unit) capsule 2,000 unit PO DAILY rabeprazole [AcipHex] 20 MG tablet,delayed release (DR/EC) 20 mg PO DAILY levothyroxine [Synthroid] 75 mcg tablet 75 mcg PO 1XD aspirin 81 mg tablet,delayed release (DR/EC) 81 mg PO DAILY Qty: 30 0RF Eliquis 5 mg Tablet 5 mg PO BID Discharge Instructions Instructions: Constipation, Adult ED Additional Instructions: You were seen in the emergency department today for evaluation of constipation. In our department you had a full physical examination performed, had laboratory studies that were reassuring, and had a CT scan that showed evidence of severe constipation. In our department you had an enema that was successful in producing a large volume of stool. For the next 3 days or so, I want you to take your MiraLAX twice a day, and after that time reduce that dose to once per day, with the goal of passing a large sized, soft stool every day. You can continue to use your Metamucil in addition to the MiraLAX. Additionally, increasing your fiber intake as well as your hydration is a critical component of constipation management. Please follow-up with your primary care provider in the next few days to discuss this visit and any symptoms that change, worsen, or persist. Thank you for allowing us to be part of your care. HPI General Date/Time Provider Initiated Documentation: 07/01/24 07:37 . Limitations to Documentation: no limitations . Information obtained by: patient and old records reviewed . HPI Narrative: HPI: This is an 79-year-old male patient with a past medical history significant for CKD, anemia, hypothyroidism, hernia, diverticulosis, and constipation is presenting for evaluation of left flank and left lower abdominal pain. Patient reports that his symptoms started last night, initially noted flank pain that was worse with movement, which radiated around to his left lower quadrant. He reports that he has not had a bowel movement in 4 days but is still passing gas, uses Metamucil daily and last night attempted MiraLAX and a suppository without success. He reports that he has noted increasing urinary frequency but not dysuria or hematuria. He has not had any nausea, vomiting, or changes in p.o. intake. Denies chest pain, has not tried any medications in the home environment other than the constipation medicines for management of his pain. States that he has had kidney stones in the past, is not sure if the symptoms are exactly the same. Denies fevers or chills. Exam: Gen: Awake and alert, in no apparent distress HEENT: Non-icteric sclera Neck: Supple Lungs: No apparent respiratory distress, normal respiratory effort. Lung sounds clear and equal bilaterally CV: Appears well perfused, heart with regular rate and rhythm, strong distal pulses Abdomen: Non-distended, soft, mild tenderness to palpation of the left lower quadrant without rigidity, rebound, or guarding. There is no left CVA tenderness nor overlying skin changes : Rectal examination supervised by nurse Maharaj, revealing a very small external skin tag with no evidence of hemorrhoids, enlarged palpable prostate with no other intrarectal masses, light brown stool on the glove, no fecal impaction or hard stool palpable MSK: Moves 4 extremities without apparent limitation in ROM. No midline tenderness or step-offs to palpation of the T or L-spine Skin: Visualized skin without rashes, cyanosis. Neuro: Normal Gait, no obvious focal deficits or facial asymmetry. Speaks in full, clear sentences. Psych: Appropriate for situation. MDM: This is an 79-year-old male patient presenting for evaluation of left flank and left lower quadrant abdominal pain. My differential includes but is not limited to kidney stone, UTI/pyelonephritis. Consider diverticulitis, bowel obstruction, incarcerated hernia. Considered mesenteric ischemia and aortic pathology (last CT scan done approximately 1 year ago demonstrated a mildly dilated aorta to 3.2 cm.) history and examination is less consistent with appendicitis, cholecystitis, hepatitis, pancreatitis, peptic ulcer disease. Currently the patient has a nonperitonitic abdomen, and is hemodynamically appropriate and comfortable. We will obtain laboratory studies to include CBC, CMP, lipase, lactate, and UA. Will obtain a CT abdomen pelvis with contrast to better characterize any abnormalities that might account for the patient's symptoms. ED Course: I independently interpreted the laboratory studies, which show no significant leukocytosis, anemia, or thrombocytopenia. The chemistry panel is without evidence of electrolyte abnormality, new kidney dysfunction, or liver injury. Lactate and lipase are low. EKG was nonischemic. I evaluated the patient's CT scan, my independent interpretation is that of constipation with no evidence of kidney stone, perforation, diverticulitis, or other abnormalities. Radiology read without acute findings, does demonstrate prostate enlargement, not incarcerated or entrapped hernias. Given the constipation that is likely the driving cause of his abdominal pain, we did proceed with enema, which was successful in producing a large volume of stool. Patient had resolution of his pain after this event, and I did detail constipation management including use of daily MiraLAX, titrated to stool output, as well as increasing his hydration an d fiber intake. At this time, the patient has had a full medical evaluation and is safe for discharge to home. They are hemodynamically stable, ambulatory, and tolerating PO. They are understanding of the follow-up plan and return precautions. They left our facility without incident. China Rivera MD Related Data Home Medications ?Medication ?Instructions ?Recorded ?Confirmed amlodipine 5 mg tablet 5 mg PO DAILY 08/02/15 07/01/24 rabeprazole 20 mg tablet,delayed 20 mg PO DAILY 12/29/16 07/01/24 release (AcipHex) acetaminophen 325 mg tablet 650 mg PO PRN 01/31/18 07/01/24 (Tylenol) apixaban 5 mg tablet (Eliquis) 5 mg PO BID 12/30/18 07/01/24 amiodarone 200 mg tablet 200 mg PO DAILY 06/26/19 07/01/24 cholecalciferol (vitamin D3) 25 2,000 unit PO DAILY 02/23/20 07/01/24 mcg (1,000 unit) capsule (Vitamin D3) potassium chloride 10 mEq 10 meq PO DAILY 11/10/22 07/01/24 capsule,extended release levothyroxine 75 mcg tablet 75 mcg PO 1XD 11/21/22 07/01/24 (Synthroid) aspirin 81 mg tablet,delayed 81 mg PO DAILY #30 tabs 11/23/22 07/01/24 release tamsulosin 0.4 mg capsule 0.4 mg PO QDAY urination #90 caps 05/19/24 07/01/24 Previous Rx's ?Medication ?Instructions ?Recorded aspirin 81 mg tablet,delayed 81 mg PO DAILY #30 tabs 11/23/22 release tamsulosin 0.4 mg capsule 0.4 mg PO QDAY urination #90 caps 05/19/24 Allergies Allergy/AdvReac Type Severity Reaction Status Date / Time propoxyphene (From Allergy Itching Unverified 07/01/24 07:42 Darvocet-N) sulfamethoxazole (From Allergy itchy- not Verified 07/01/24 07:42 Bactrim) feeling well trimethoprim (From Bactrim) Allergy itchy- not Verified 07/01/24 07:42 feeling well General Stated Complaint: FlankPain PEDRO: 3 Course Vital Signs Vital signs: Vital Signs Temperature 36.8 C 07/01/24 07:40 Pulse 93 H 07/01/24 07:40 Respiratory Rate 20 07/01/24 07:40 Blood Pressure 156/104 H 07/01/24 07:40 Pulse Oximetry 98 07/01/24 07:40 Temperature 36.8 C 07/01/24 07:40 Temperature Source Oral 07/01/24 07:40 Pulse 93 H 07/01/24 07:40 Respiratory Rate 20 07/01/24 07:40 Blood Pressure 156/104 H 07/01/24 07:40 Blood Pressure Position Sitting 07/01/24 07:40 Pulse Oximetry 98 07/01/24 07:40 Oxygen Delivery Method Room Air 07/01/24 07:40 Oxygen Flow Rate 0 07/01/24 07:40 Pain Level 9 07/01/24 07:40 Medical Decision Making Quality:SDOH Health Related Social Needs: No Data to Display PFSH All Active Problems (Updated 07/01/24 @ 10:32 by China Rivera MD) Acute constipation (Acute) Right elbow pain (Acute) Lower urinary tract symptoms (LUTS) (Acute) Binocular vision disorder with diplopia (Acute) Transient neurological symptoms (Acute) Anemia (Chronic) CKD (chronic kidney disease) stage 3, GFR 30-59 ml/min (Chronic) Hyperglycemia without ketosis (Acute) Vertigo (Acute) Hypothyroidism (acquired) (Chronic) Elevated PSA (Acute) Primary osteoarthritis of both first carpometacarpal joints (Acute 09/18/15) Hydrocele (Acute) Medical History A-fib Calculus of left kidney (09/07/16) GERD (gastroesophageal reflux disease) Hydrocele in adult Hyperlipidemia Hypertension Left ureteral stone (09/07/16) Spinal arthritis Urinary tract infection Vitamin D deficiency Surgical History History of arthroscopy of left knee History of arthroscopy of right knee Hx of bilateral inguinal hernia repair Hx of colonoscopy Rotator Cuff Repair Right and Left Social History Smoking/Tobacco Use Status: Never Smoking risk assessment performed?: Yes Alcohol Intake: current Alcohol Intake frequency: a few times a month Drug use: Never Substance use type: does not use Current gender identity: male Do you feel safe at home: Yes Do you feel safe in your relationship?: Yes
[2024-07-01 07:59] VITALS: BP 156/104; PULSE 93; RESP 20; TEMP 36.8; O2SAT 98
[2024-07-01 08:15] LABS: Lactate 0.6 mmol/L (0.6-1.4)
[2024-07-01 08:18] LABS: Abs Immature Grans 0.03 10^3/uL (0.0-0.06); Absolute Basophil Count 0.05 10^3/uL (0.0-0.2); Absolute Eosinophil Count 0.22 10^3/uL (0.0-0.7); Absolute Lymphocyte Count 1.41 10^3/uL (1.2-3.4); Absolute Monocyte Count 0.79 10^3/uL (0.1-0.8); Absolute Neutrophil Count 5.02 10^3/uL (1.2-6.7); Basophils % 0.7 %; Eosinophils % 2.9 %; HCT 42.5 % (40.0-50.0); HGB 14.2 g/dL (13.5-17.5); Immature Grans % 0.4 %; Lymphocytes % 18.8 %; MCH 31.6 pg (27.0-33.0); MCHC 33.4 % (32.0-36.0); MCV 94 fL (80-95); MPV 9.1 fL (8.0-11.0); Monocytes % 10.5 %; Neutrophils % 66.7 %; Platelet Count 255 10^3/uL (130-400); RDW 14.1 % (11.8-14.1); RDW-SD 49.1 fL; WBC 7.52 10^3/uL (4.4-10.8)
[2024-07-01 08:27] LABS: Bilirubin Negative (Negative); Blood Negative (Negative); Clarity Clear (Clear); Glucose Negative (Negative); Ketones Negative (Negative); Leukocyte Esterase Trace (Negative); Nitrite Negative (Negative); Specific Gravity 1.015 (1.005-1.025); Urobilinogen 0.2 mg/dL (Up to 0.2)
[2024-07-01 08:33] LABS: ALT 22 U/L (16-63); AST 21 U/L (15-37); Albumin 3.9 g/dL (3.4-5.0); Alkaline Phosphatase 144 U/L (46-116); BUN 24 mg/dL (7-18); Bilirubin, Total 0.43 mg/dL (0.2-1.0); CREATININE 1.3 mg/dL (0.70-1.30); Calcium 9.1 mg/dL (8.5-10.1); Chloride 102 mmol/L (98-107); Estimated GFR 55.19 (mL/min/1.73m2); Glucose 98 mg/dL (74-106); Lipase 43 U/L (16-77); Magnesium 1.9 mg/dL (1.8-2.4); Potassium 3.9 mmol/L (3.5-5.1); Sodium 136 mmol/L (136-145); Total Protein 8.1 g/dL (6.4-8.2)
[2024-07-01 08:36] LABS: Bacteria Rare HPF (Negative); C & S Indicated? No; Casts Negative LPF (Negative); Crystals Negative HPF (Negative); Epithelial Cells Rare HPF (Negative); Mucus Negative (Negative); RBC 0-2 HPF (0-2)
[2024-07-01] MEDS: Normal Saline - Diluent 50 ML VIAL IJ (08:49)
[2024-07-01] MEDS: Omnipaque 350 MG/ML 100 ML BTL 85 ML IJ (08:50)
--- NOTE | 2024-07-01 09:22 | DI.VRAD_ITS ---
PROCEDURE INFORMATION: Exam: CT Abdomen And Pelvis With Contrast Exam date and time: 07/01/2024 8:48 AM Age: 79 years old Clinical indication: Other: Llq and left flank pain TECHNIQUE: Imaging protocol: Computed tomography of the abdomen and pelvis with contrast. Radiation optimization: All CT scans at this facility use at least one of these dose optimization techniques: automated exposure control; mA and/or kV adjustment per patient size (includes targeted exams where dose is matched to clinical indication); or iterative reconstruction. Contrast material: OMNIPAQUE 350; Contrast volume: 85 ml; Contrast route: INTRAVENOUS (IV); COMPARISON: CT ABDOMEN PELVIS W 12/12/2022 1:58 PM FINDINGS: Coronary arteries: Mild coronary calcifications. Diaphragm: Small hiatal hernia. Liver: Normal. No mass. Gallbladder and biliary ducts: Normal. No calcified stones. No ductal dilation. Pancreas: Normal. No ductal dilation. Spleen: Normal. No splenomegaly. Adrenal glands: Normal. No mass. Kidneys and ureters: Simple cyst in the interpolar region of the left kidney measuring 1.5 cm. Simple cyst in the upper pole of the right kidney measuring 7 mm. 3 mm nonobstructing stone in the lower pole of the right kidney. No obstructing urinary stones. No hydronephrosis on either side Stomach and bowel: Mild diverticulosis sigmoid colon. Above average fecal loading in the colon. Appendix: No evidence of appendicitis. Intraperitoneal space: Unremarkable. No free air. No significant fluid collection. Vasculature: Vascular calcifications. Lymph nodes: Unremarkable. No enlarged lymph nodes. Urinary bladder: Layering stone in the right aspect of the bladder. Bladder diverticuli. Reproductive: Enlarged prostate gland with its median lobe impinging of the neck of the bladder. Prostate gland calcifications. Left hydrocele. Right scrotal calcification. Bones/joints: Chronic mild compression deformity of T12 and T11 vertebral bodies. Mild degenerative disease of bilateral hip joints mild degenerative disease of the symphysis pubis. Chronic fracture deformity of the right inferior pubic ramus. Mild curvature of the lumbar spine convex to the left. Soft tissues: Small fat containing umbilical hernia. Bilateral fat containing inguinal hernias, larger on the right side. IMPRESSION: 1. No acute intra-abdominal process. 2. Average fecal loading in the colon, suggestive of constipation. Dictated and Authenticated by: Og Rodriguez MD. Ordering:STEVIE Hopper MD
[2024-07-01] MEDS: Na Phosphate Enema-Adult 133 ML BTL PR (09:48)
--- NOTE | 2024-07-01 10:33 | NUR.NOTE ---
Great results with the enema. Patient states full relief from the pain. Nursing Note:
[2024-07-01 10:42] VITALS: BP 121/75; PULSE 83; O2SAT 96
== END 2024-07-01 10:46 | disposition home or self-care (01) ==
PROVIDERS: Emergency Provider Emergency Medicine; PCP Family Medicine
DX: R10.32 Left lower quadrant pain (principal); K59.00 Constipation, unspecified
CPT/HCPCS: 36415; 80053; 83690; 93005; 99285; 74177; 81003; 81015; 83605; 83735; 85025; 93010; 99283; J3490

== ENCOUNTER → 2024-09-22 12:44 | Outpatient (BNVA) | payer MEDICARE, OTHER, SELFPAY | PROVIDERS: PCP Family Medicine; Referring Provider Family Medicine; Visit Provider Urology | DX: N43.3 Hydrocele, unspecified (principal); Z79.01 Long term (current) use of anticoagulants | CPT/HCPCS: 55000; 76942 ==

== ENCOUNTER 2025-01-24 13:01 | Outpatient (CLI) | payer MEDICARE, OTHER, SELFPAY ==
[2025-01-25 19:17] LABS: PSA, Diagnostic 5.9 ng/mL (<=6.5)
== END 2025-01-24 13:02 | disposition home or self-care (01) ==
LOC: LBO 01-25 13:01
PROVIDERS: PCP Family Medicine; Visit Provider Urology
DX: R97.20 Elevated prostate specific antigen [PSA] (principal)
CPT/HCPCS: 36415; 84153

== ENCOUNTER → 2025-03-16 10:39 | Outpatient (BNVA) | payer MEDICARE, OTHER, SELFPAY | PROVIDERS: PCP Family Medicine; Referring Provider Family Medicine; Visit Provider Urology | DX: N43.3 Hydrocele, unspecified (principal); N18.31 Chronic kidney disease, stage 3a; R97.20 Elevated prostate specific antigen [PSA] | CPT/HCPCS: 54700; 76870; 76942 ==

== ENCOUNTER 2025-06-13 11:45 | Emergency (ER) | payer MEDICARE, OTHER, SELFPAY ==
--- NOTE | 2025-06-13 11:30 | RT.EKG_ITS ---
APPROVED REPORT Exam: Resting ECG Reason for Exam: dizziness Patient Location: E HR:64 bpm ECG Measurements Heart Rate 64 AXIS CA 231 P 34 QRSd 106 QRS 18 QT 458 T 25 QTc 472 Conclusion Pacemaker spikes or artifacts...timing non-diagnostic Sinus rhythm...normal P axis, V-rate 60- 99 Atrial premature complex...SV complex w/ short R-R interval Prolonged CA interval...CA >220, V-rate 50- 90 No STEMI
[2025-06-13 11:52] VITALS: BP 142/82; PULSE 65; RESP 16; O2SAT 98
--- NOTE | 2025-06-13 12:00 | DI.RAD_ITS ---
Exam(s) XR CHEST 2V PA LATERAL EXAM: XR CHEST 2V PA LATERAL CLINICAL HISTORY: dizziness TECHNIQUE: 2D digital imaging was performed. Two views. COMPARISON: CR STERNOCLAVICULAR JOINT/S from 07/28/2022 FINDINGS: HEART: Normal size. Aorta: Not dilated. PULMONARY VASCULATURE: Normal. MEDIASTINUM: Unremarkable. LUNGS: Clear. PLEURAL SPACE: No pleural effusion or pneumothorax. BONE:Unremarkable for age. SOFT TISSUES: Unremarkable. IMPRESSION: No acute abnormality. DATA REPOSITORY: RADIATION DOSE DELIVERED:
[2025-06-13] MEDS: Normal Saline 500 ML IV (12:23)
[2025-06-13 12:25] VITALS: RESP 18
[2025-06-13 12:28] LABS: Abs Immature Grans 0.01 10^3/uL (0.0-0.06); HCT 39.3 % (40.0-50.0); HGB 13.1 g/dL (13.5-17.5); Immature Grans % 0.2 %; MCH 30.9 pg (27.0-33.0); MCHC 33.3 % (32.0-36.0); MCV 93 fL (80-95); MPV 9.3 fL (8.0-11.0); Platelet Count 211 10^3/uL (130-400); RBC 4.24 10^6/uL (4.36-5.78); RDW 14.4 % (11.8-14.1); RDW-SD 49.6 fL; WBC 4.89 10^3/uL (4.4-10.8)
--- NOTE | 2025-06-13 12:42 | W.ED.GENAD ---
Discharge Plan Disposition Patient Disposition: Home Condition: Stable Discharge Details Clinical Impression: Dizziness of unknown cause Primary Care Provider: Allan Shaffer ED Provider: Dave Manning Home Meds and New Rx's Prescriptions: Continued amiodarone 200 mg tablet 200 mg PO DAILY potassium chloride 10 mEq capsule, extended release 10 meq PO DAILY tamsulosin 0.4 mg capsule 0.4 mg PO QDAY Qty: 90 4RF amlodipine 5 MG tablet 5 mg PO DAILY acetaminophen [Tylenol] 325 MG tablet 650 mg PO PRN cholecalciferol (vitamin D3) [Vitamin D3] 25 mcg (1,000 unit) capsule 2,000 unit PO DAILY rabeprazole [AcipHex] 20 MG tablet,delayed release (DR/EC) 20 mg PO DAILY levothyroxine [Synthroid] 75 mcg tablet 75 mcg PO 1XD Eliquis 5 mg Tablet 5 mg PO BID Discharge Instructions Instructions: Dizziness, Adult ED Additional Instructions: You were seen in the emergency department for your dizziness of unknown cause, you are not in A-fib at this time and your cardiac workup is negative, there is no signs of any severe electrolyte abnormalities, I think you should follow-up with your PCP and 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 Referrals: Allan Shaffer [Primary Care Provider, Medicine] Discharge Data Discharge Date/Time-TO BE ENTERED AT DEPARTURE: 06/13/25 15:28 HPI General Date/Time Provider Initiated Documentation: 06/13/25 12:01. HPI Narrative: 80 year-old male presents to ED today by EMS with a chief complaint of dizziness, feeling faint, has atrial fibrillation and anxiety over this with onset today. Quality described as dizziness, near syncope, no radiation to falls, trauma, chest pain, shortness of breath, severe increase in peripheral edema. Severity is described as momderate. Palliating factors include nothing specific attempted. Provoking factors include nothing specific. Patient is anticoagulated on Eliquis. Related Data Home Medications ?Medication ?Instructions ?Recorded ?Confirmed amlodipine 5 mg tablet 5 mg PO DAILY 08/02/15 03/16/25 rabeprazole 20 mg tablet,delayed 20 mg PO DAILY 12/29/16 03/16/25 release (AcipHex) acetaminophen 325 mg tablet 650 mg PO PRN 04/30/18 06/13/25 (Tylenol) apixaban 5 mg tablet (Eliquis) 5 mg PO BID 12/30/18 03/16/25 amiodarone 200 mg tablet 200 mg PO DAILY 06/26/19 03/16/25 cholecalciferol (vitamin D3) 25 2,000 unit PO DAILY 02/23/20 03/16/25 mcg (1,000 unit) capsule (Vitamin D3) potassium chloride 10 mEq 10 meq PO DAILY 11/10/22 03/16/25 capsule,extended release levothyroxine 75 mcg tablet 75 mcg PO 1XD 11/21/22 03/16/25 (Synthroid) tamsulosin 0.4 mg capsule 0.4 mg PO QDAY urination #90 caps 05/19/24 03/16/25 Previous Rx's ?Medication ?Instructions ?Recorded tamsulosin 0.4 mg capsule 0.4 mg PO QDAY urination #90 caps 05/19/24 Allergies Allergy/AdvReac Type Severity Reaction Status Date / Time propoxyphene (From Allergy Itching Unverified 06/13/25 11:58 Darvocet-N) sulfamethoxazole (From Allergy itchy- not Verified 06/13/25 11:58 Bactrim) feeling well trimethoprim (From Bactrim) Allergy itchy- not Verified 06/13/25 11:58 feeling well General Stated Complaint: Dizzy/Sync PEDRO: 3 Review of Systems All systems reviewed & are unremarkable except as noted in HPI and below Exam Narrative Exam Narrative: GENERAL APPEARANCE: Well-nourished, non-toxic, awake and alert, atraumatic, no acute distress. SKIN: Warm, pink, dry, intact, without rashes/lesions/ulcerations. HEAD: Normocephalic, atraumatic, normal hair distribution for gender/age. EYES: Normal conjunctiva, no exudates on lids/lashes. ENT: Nares patent, no circumoral cyanosis, no facial swelling NECK: Supple, trachea midline, painless cervical ROM. LUNGS/CHEST: Lungs CTA bilaterally- no rhonchi/rales/wheezes diffusely, non-labored respirations, normal A/P diameter, symmetrical expansion, no chest wall deformity HEART (CV/PV): Regular rate and rhythm without murmur, no peripheral edema, no JVD. ABDOMEN: Soft, non-distended, no guarding, no tenderness. MSK: Normal ROM, no swelling/deformity to bilateral UEs or LEs, moving all extremities without weakness, no cyanosis, spine midline without tenderness, normal curvature. NEURO: Mental Status AAOx4 - alert to person, place, time, events No facial droop, no forehead involvement. Motor: No focal weakness - strength 5/5 in bilateral UEs and LEs, proximal and distal, symmetric. Sensory: sensation intact to light touch globally. Gait normal: patient ambulated without ataxia into ED room. PSYCH: euthymic, cooperative, pleasant, appropriate speech Course Vital Signs Vital signs: Vital Signs Pulse 65 06/13/25 11:52 Respiratory Rate 16 06/13/25 11:52 Blood Pressure 142/82 H 06/13/25 11:52 Pulse Oximetry 98 06/13/25 11:52 Pulse 65 06/13/25 11:52 Respiratory Rate 18 06/13/25 12:25 Respiratory Effort Normal 06/13/25 12:25 Respiratory Depth Normal 06/13/25 12:25 Respiratory Pattern Normal 06/13/25 12:25 Blood Pressure 142/82 H 06/13/25 11:52 Pulse Oximetry 98 06/13/25 11:52 Oxygen Delivery Method Room Air 06/13/25 11:52 Oxygen Flow Rate 0 06/13/25 11:52 Pain Level 0 06/13/25 11:52 Lab/Test Results Lab/Test Results: Laboratory Tests Range/Units 06/13/25 12:19 WBC (4.4-10.8) 10^3/uL 4.89 RBC (4.36-5.78) 10^6/uL 4.24 L Hgb (13.5-17.5) g/dL 13.1 L Hct (40.0-50.0) % 39.3 L MCV (80-95) fL 93 MCH (27.0-33.0) pg 30.9 MCHC (32.0-36.0) % 33.3 RDW (11.8-14.1) % 14.4 H Plt Count (130-400) 10^3/uL 211 MPV (8.0-11.0) fL 9.3 Immature Gran % % 0.2 Neutrophils % % 66.3 Lymphocytes % % 19.4 Monocytes % % 11.0 Eosinophils % % 2.5 Basophils % % 0.6 Nucleated RBC % (0.0-0.3) % 0.0 Absolute Neutrophils (1.2-6.7) 10^3/uL 3.24 Absolute Lymphocytes (1.2-3.4) 10^3/uL 0.95 L Absolute Monocytes (0.1-0.8) 10^3/uL 0.54 Absolute Eosinophils (0.0-0.7) 10^3/uL 0.12 Absolute Basophils (0.0-0.2) 10^3/uL 0.03 VBG Lactate (<or=2.0) mmol/L 1.3 Medical Decision Making This dictation utilizes [id number] dictation software and may contain unedited grammatical errors. 80 year-old male presents to ED today by EMS with a chief complaint of dizziness, feeling faint, has atrial fibrillation and anxiety over this with onset today. Quality described as dizziness, near syncope, no radiation to falls, trauma, chest pain, shortness of breath, severe increase in peripheral edema. Severity is described as momderate. Palliating factors include nothing specific attempted. Provoking factors include nothing specific. Patients' medical history: Paroxysmal atrial fibrillation, anemia, transient neurological symptoms, CKD, vertigo. Family and social history: Noncontributory. Pertinent exam findings / vital signs include regular rate and rhythm, benign cardiopulmonary exam, benign abdomen, nontoxic and afebrile. Differential / pathologies of concern include dizziness, atrial fibrillation, anemia, viral syndrome, anxiety. Diagnostic studies of: - CBC, CMP, lactate, serial troponins, BNP, lipase, TSH, UA, x-ray chest, CT head without contrast, EKG. - CBC shows no leukocytosis, shows a mild baseline anemia at 13.1 - Lactate negative - CMP without actionable abnormality - Magnesium within normal limits - Serial troponins negative - BNP is mildly elevated at 344 nonspecific - Lipase negative - TSH is elevated at 5.43, T4 within normal limits - UA without signs of infection - X-ray chest shows no abnormality - CT head without contrast shows no acute pathology - EKG shows sinus rhythm at 64 bpm, normal axis, no ST changes of ischemia, mildly prolonged AR interval Interventions of: -500mL IVF NS. ED Course/Assessment/Plan: 80-year-old male presents with some dizziness, has known anxiety and atrial fibrillation, is not in A-fib today, benign laboratory workup, no actual syncope, low risk on [place] syncope score, CT head negative, x-ray chest negative, EKG shows sinus rhythm, counseled on staying well-hydrated and nourished, strict return criteria for any return of severe syncopal symptoms chest pain or other emergent concerns. Findings not consistent with ICH or intracranial mass, dehydration, ACS, heart failure, arrhythmia. Disposition of Dizziness of Unknown Cause. Patient verbalized understanding of the plan and return to ED criteria and engaged in shared decision making. Medical Records Medical records reviewed: Yes I reviewed the patient's medical records. Imaging Data Radiologic Study: Attestation: I personally reviewed and interpreted this imaging study as follows: Imaging: CT Scan Radiologist's impression: EXAM: CT HEAD WO CLINICAL HISTORY: dizziness. TECHNIQUE: Imaging Protocol: Axial computed tomography images with coronal and sagittal reformatted images were created and reviewed COMPARISON: No exams were available for comparison FINDINGS: Ventricles and Extra axial spaces: Normal in size and morphology for the patient's age. Hemorrhage: None. Cerebral parenchyma: No evidence of acute infarct or mass. Mild atrophy consistent with the patient's age. Mild white matter changes consistent with microvascular changes. Midline shift: None. Brainstem/Cerebellum: Normal. Bones: No skull or facial fractures. Visualized Paranasal sinuses:Clear. Mastoids: Clear. Soft Tissues: Unremarkable. ORBITS: Unremarkable. PITUITARY: Not enlarged. IMPRESSION: No acute intracranial process. Radiologic Study #2: Attestation: I personally reviewed and interpreted this imaging study as follows: Imaging: X-Ray Radiologist's impression: EXAM: XR CHEST 2V PA LATERAL CLINICAL HISTORY: dizziness TECHNIQUE: 2D digital imaging was performed. Two views. COMPARISON: CR STERNOCLAVICULAR JOINT/S from 07/28/2022 FINDINGS: HEART: Normal size. Aorta: Not dilated. PULMONARY VASCULATURE: Normal. MEDIASTINUM: Unremarkable. LUNGS: Clear. PLEURAL SPACE: No pleural effusion or pneumothorax. BONE:Unremarkable for age. SOFT TISSUES: Unremarkable. IMPRESSION: No acute abnormality. Lab Data Lab results reviewed: Yes I reviewed the patient's lab results. Labs: Laboratory Tests Range/Units 06/13/25 06/13/25 06/13/25 12:19 12:58 13:21 WBC (4.4-10.8) 10^3/uL 4.89 RBC (4.36-5.78) 10^6/uL 4.24 L Hgb (13.5-17.5) g/dL 13.1 L Hct (40.0-50.0) % 39.3 L MCV (80-95) fL 93 MCH (27.0-33.0) pg 30.9 MCHC (32.0-36.0) % 33.3 RDW (11.8-14.1) % 14.4 H Plt Count (130-400) 10^3/uL 211 MPV (8.0-11.0) fL 9.3 Immature Gran % % 0.2 Neutrophils % % 66.3 Lymphocytes % % 19.4 Monocytes % % 11.0 Eosinophils % % 2.5 Basophils % % 0.6 Nucleated RBC % (0.0-0.3) % 0.0 Absolute Neutrophils (1.2-6.7) 10^3/uL 3.24 Absolute Lymphocytes (1.2-3.4) 10^3/uL 0.95 L Absolute Monocytes (0.1-0.8) 10^3/uL 0.54 Absolute Eosinophils (0.0-0.7) 10^3/uL 0.12 Absolute Basophils (0.0-0.2) 10^3/uL 0.03 VBG Lactate (<or=2.0) mmol/L 1.3 Sodium (136-145) mmol/L 140 Potassium (3.5-5.1) mmol/L 4.0 Chloride (98-107) mmol/L 103 Carbon Dioxide (21.0-32.0) mmol/L 28.3 Anion Gap (3-11) mmol/L 8.7 BUN (7-18) mg/dL 20 H Creatinine (0.70-1.30) mg/dL 1.2 Est GFR (CKD-EPI 2020) (mL/min/1.73m2) 60.38 Glucose (74-106) mg/dL 132 H Calcium (8.5-10.1) mg/dL 9.2 Magnesium (1.8-2.4) mg/dL 1.9 Total Bilirubin (0.2-1.0) mg/dL 0.5 AST (15-37) U/L 23 ALT (16-63) U/L 29 Alkaline Phosphatase (46-116) U/L 120 H Troponin I (<or=76) ng/L 10 9 NT-Pro-B Natriuret Pep (<300) pg/mL 344 H Total Protein (6.4-8.2) g/dL 7.6 Albumin (3.4-5.0) g/dL 3.8 Lipase (<78) U/L 39 TSH (0.36-3.74) uIU/mL 5.43 H Free T4 (0.76-1.46) ng/dL 1.32 Urine Color (Yellow) Yellow Urine Clarity (Clear) Clear Urine pH (5-8) 7.0 Ur Specific [place] (1.005-1.025) 1.020 Urine Protein (Neg-Trace) mg/dL Negative Urine Ketones (Negative) mg/dL Negative Urine Blood (Negative) Negative Urine Nitrite (Negative) Negative Urine Bilirubin (Negative) Negative Urine Urobilinogen (Up to 0.2) mg/dL 0.2 Ur Leukocyte Esterase (Negative) Negative Urine Glucose (Negative) mg/dL Negative PFSH All Active Problems (Updated 06/13/25 @ 14:57 by CECILIA Britt) Dizziness of unknown cause (Acute) Lower urinary tract symptoms (LUTS) (Acute) Binocular vision disorder with diplopia (Acute) Transient neurological symptoms (Acute) Anemia (Chronic) CKD (chronic kidney disease) stage 3, GFR 30-59 ml/min (Chronic) Hyperglycemia without ketosis (Acute) Vertigo (Acute) Hypothyroidism (acquired) (Chronic) Elevated PSA (Acute) Primary osteoarthritis of both first carpometacarpal joints (Acute 09/18/15) Hydrocele (Acute) Medical History A-fib Calculus of left kidney (09/07/16) GERD (gastroesophageal reflux disease) Hydrocele in adult Hyperlipidemia Hypertension Left ureteral stone (09/07/16) Spinal arthritis Urinary tract infection Vitamin D deficiency Surgical History History of arthroscopy of left knee History of arthroscopy of right knee Hx of bilateral inguinal hernia repair Hx of colonoscopy Rotator Cuff Repair Right and Left Social History Smoking/Tobacco Use Status: Never Smoking risk assessment performed?: Yes Alcohol Intake: current Alcohol Intake frequency: a few times a month Drug use: Never Substance use type: does not use Current gender identity: male Do you feel safe at home: Yes Do you feel safe in your relationship?: Yes
[2025-06-13 12:47] LABS: ALT 29 U/L (16-63); AST 23 U/L (15-37); Albumin 3.8 g/dL (3.4-5.0); Alkaline Phosphatase 120 U/L (46-116); Anion Gap 8.7 mmol/L (3-11); BUN 20 mg/dL (7-18); Bilirubin, Total 0.5 mg/dL (0.2-1.0); CO2 28.3 mmol/L (21.0-32.0); Calcium 9.2 mg/dL (8.5-10.1); Chloride 103 mmol/L (98-107); Estimated GFR 60.38 (mL/min/1.73m2); Glucose 132 mg/dL (74-106); Lipase 39 U/L (<78); Magnesium 1.9 mg/dL (1.8-2.4); Potassium 4.0 mmol/L (3.5-5.1); Sodium 140 mmol/L (136-145); Total Protein 7.6 g/dL (6.4-8.2)
[2025-06-13 13:07] LABS: Glucose Negative (Negative)
[2025-06-13 13:07] LABS: NT-proBNP 344 pg/mL (<300); TSH (W/Ref FT4) 5.43 uIU/mL (0.36-3.74); Troponin I 10 ng/L (<or=76)
[2025-06-13 13:47] LABS: Troponin I 9 ng/L (<or=76)
--- NOTE | 2025-06-13 14:06 | DI.CT_ITS ---
Exam(s) CT HEAD WO EXAM: CT HEAD WO CLINICAL HISTORY: dizziness. TECHNIQUE: Imaging Protocol: Axial computed tomography images with coronal and sagittal reformatted images were created and reviewed COMPARISON: No exams were available for comparison FINDINGS: Ventricles and Extra axial spaces: Normal in size and morphology for the patient's age. Hemorrhage: None. Cerebral parenchyma: No evidence of acute infarct or mass. Mild atrophy consistent with the patient's age. Mild white matter changes consistent with microvascular changes. Midline shift: None. Brainstem/Cerebellum: Normal. Bones: No skull or facial fractures. Visualized Paranasal sinuses:Clear. Mastoids: Clear. Soft Tissues: Unremarkable. ORBITS: Unremarkable. PITUITARY: Not enlarged. IMPRESSION: No acute intracranial process. RADIATION DOSE DELIVERED: 917.9mGy.cm Total DLP DATA REPOSITORY: All CT scans at this facility are submitted to the National Radiology Data Registry (NRDR) Dose Index Registry (DIR) with the [employer] (A[employer]). RADIATION OPTIMIZATION: All CT scans at this facility use at least one of these dose optimization techniques: automated exposure control; mA and/or kV adjustment per patient size (includes targeted exams where dose is matched to clinical indication); or iterative reconstruction.
[2025-06-13 15:28] VITALS: BP 123/82; PULSE 76; RESP 16; TEMP 36.2; O2SAT 97
== END 2025-06-13 15:28 | disposition home or self-care (01) ==
PROVIDERS: Emergency Provider Physician Assistant; PCP Family Medicine
DX: R42 Dizziness and giddiness (principal); I48.91 Unspecified atrial fibrillation; F41.9 Anxiety disorder, unspecified; R55 Syncope and collapse; D64.9 Anemia, unspecified; N18.9 Chronic kidney disease, unspecified
CPT/HCPCS: 99285; 99284; 80053; 83690; 93005; 96360; 70450; 71046; 81003; 83605; 83735; 83880; 84439; 84443; 84484; 85025; 93010